=== PATIENT | male | born 1960 | race Caucasian/White ===

== ENCOUNTER → 2023-01-01 07:53 | Outpatient (BNVA) | payer MEDICAID, SELFPAY | PROVIDERS: PCP Internal Medicine; Visit Provider Nurse Practitioner Family | DX: G47.33 Obstructive sleep apnea (adult) (pediatric) (principal); G47.00 Insomnia, unspecified; R40.0 Somnolence | CPT/HCPCS: 99212 ==

== ENCOUNTER → 2023-02-18 15:59 | Outpatient (BNVA) | payer MEDICAID, SELFPAY | PROVIDERS: PCP Internal Medicine; Visit Provider Internal Medicine Endocrinology, Diabetes & Metabolism | DX: E29.1 Testicular hypofunction (principal) | CPT/HCPCS: 99202 ==

== ENCOUNTER → 2023-03-16 20:30 | Outpatient (REF) | payer MEDICAID, SELFPAY | LOC: HO.SL 20:30 | PROVIDERS: PCP Internal Medicine; Visit Provider Nurse Practitioner Family | DX: G47.33 Obstructive sleep apnea (adult) (pediatric) (principal); R40.0 Somnolence; J44.9 Chronic obstructive pulmonary disease, unspecified; I10 Essential (primary) hypertension; E11.51 Type 2 diabetes mellitus with diabetic peripheral angiopathy without gangrene; I70.209 Unspecified atherosclerosis of native arteries of extremities, unspecified extremity; Z86.73 Personal history of transient ischemic attack (TIA), and cerebral infarction without residual deficits | CPT/HCPCS: 95810 ==

== ENCOUNTER 2023-04-08 14:26 | Outpatient (AMB) | payer MEDICAID, SELFPAY ==
[2023-04-08 14:31] VITALS: BP 110/70; PULSE 61; O2SAT 95
--- NOTE | 2023-04-08 14:31 | MHC.OFFVIS ---
Intake Vital Signs 04/08/23 14:31 Height 6 ft BP 110/70 Blood Pressure Location Rt brachial Position Sitting Pulse 61 Pulse Source Pulse Oximeter Pulse Oximetry (%) 95 Oxygen Delivery Method Room Air Intake Visit Reasons: 3 mo f/u for LE -Confirmed Intake Note: Patient presents for 3 month follow up Allergies codeine [CODEINE] Allergy (Unknown, Verified 04/08/23 14:33) RASH naltrexone Allergy (Unknown, Verified 04/08/23 14:33) Unknown pentazocine Allergy (Unknown, Verified 04/08/23 14:33) Nausea semaglutide Adverse Reaction (Unknown, Verified 04/08/23 14:33) Diarrhea From ULTRAM Allergy (Unknown, Uncoded 04/08/23 14:33) UNKNOWN HPI HPI Comments History of Present Illness Details 62 y/o male patient presents for follow up of LE on insomnia. The PSG sleep study result was normal sleep. The AHI was less than 3 and oxygen kellie was 88%. Pt was diagnosed with sleep apnea around 1999 and treated with CPAP for 20 years. Pt states that he lost 95lb three years ago and was told that he does not need to use CPAP at that time. Pt reports difficulty falling asleep and staying sleep. His psychiatrist tapering off his clonazepam due to cognitive impairment. He is off clonazepam now. Pt also takes trazodone 75 mg to treat insomnia, but not really helpful. Pt states that he does not remember he tried melatonin or not. [facility] Medical History (Updated 02/18/23 @ 16:09 by Chele Diaz MD) CKD (chronic kidney disease) stage 2, GFR 60-89 ml/min COPD (chronic obstructive pulmonary disease) GERD (gastroesophageal reflux disease) Heart disease HLD (hyperlipidemia) Hypertension Hypogonadism, testicular Stroke Surgical History (Updated 04/08/23 @ 14:34 by DOT Real) History of hernia surgery Hx of appendectomy Hx of lithotripsy Family History Brother Diabetes Cardiomyopathy Mother Dementia Other No known problems Social History Alcohol intake: former Patient Tobacco Use Status: Never used Tobacco Review of Systems Const All systems reviewed & are unremarkable except as noted in HPI and below ENT Reports Normal hearing present Neuro Reports Normal hearing present Physical Exam Vital Signs: Last Vital Signs Pulse 61 04/08/23 14:31 BP 110/70 04/08/23 14:31 Pulse Ox 95 04/08/23 14:31 Oxygen Delivery Method Room Air 04/08/23 14:31 Const General: cooperative Nutritional Appearance: average body habitus Orientation/consciousness: patient oriented x3 Resp Effort & Inspection: normal respiratory effort and able to speak in complete sentences Neuro General: patient oriented x3 Cranial nerves: Yes Bilaterally intact EOM present, Yes Normal facial strength present, Yes Midline tongue present, Yes Symmetric palate elevation present, Yes Normal hearing present, Yes Ability to bilaterally rotate head present and Yes Ability to bilaterally elevate shoulders present Cognition (Neuro): normal cognition Gait exam (Neuro): Assisted gait required (cane) Motor exam (neuro): 5/5 motor strength present throughout and Pronator motor function not present Psych Appearance: grossly normal Affect: normal affect Attitude: cooperative Assessment & Plan Assessment & Plan (1) LE (obstructive sleep apnea): Code(s): G47.33 - Obstructive sleep apnea (adult) (pediatric) (2) Insomnia: Code(s): G47.00 - Insomnia, unspecified Plan Advised patient to try melatonin 3 mg 1-2 tabs qHS to promote sleep. Sleep hygiene education provided. Encouraged patient to increase physical activity during daytime. Having routine sleep schedule. Continue to take trazodone 75 mg qHS. Medications: New melatonin 1-2 tabs qHS. 60 tabs 3RF sleep 30 days Coding Level of Care Code Est Pt Level 3 (52979) Diagnoses LE (obstructive sleep apnea) G47.33 Insomnia G47.00
== END 2023-04-08 14:51 | disposition home or self-care (01) ==
PROVIDERS: Visit Provider Nurse Practitioner Family
DX: G47.33 Obstructive sleep apnea (adult) (pediatric) (principal); G47.00 Insomnia, unspecified
CPT/HCPCS: 99213

== ENCOUNTER → 2023-04-08 | Outpatient (BNVA) | payer MEDICAID, SELFPAY | PROVIDERS: Visit Provider Nurse Practitioner Family | DX: G47.33 Obstructive sleep apnea (adult) (pediatric) (principal); G47.00 Insomnia, unspecified | CPT/HCPCS: 99213 ==

== ENCOUNTER 2023-05-12 15:41 | Outpatient (REF) | payer MEDICAID, SELFPAY ==
[2023-05-13 07:29] LABS: Follicle Stimulating Hormone 5.3 mIU/mL (1.6-8.0); Lutenizing Hormone 6.8 mIU/mL (1.6-15.2)
[2023-05-16 16:54] LABS: Testosterone, Free 17.7 pg/mL (35.0-155.0); Testosterone, Total 153 ng/dL (250-1100)
== END 2023-05-12 15:42 | disposition home or self-care (01) ==
LOC: HO.LAB 15:41
PROVIDERS: PCP Internal Medicine; Visit Provider Internal Medicine Endocrinology, Diabetes & Metabolism
DX: E29.1 Testicular hypofunction (principal)
CPT/HCPCS: 36415; 83001; 83002; 84402; 84403

== ENCOUNTER 2023-05-26 15:26 | Outpatient (AMB) | payer MEDICAID, SELFPAY ==
--- NOTE | 2023-05-26 15:27 | A.OFFVIS_ITS ---
Intake Vital Signs 05/26/23 15:28 Height 6 ft Weight 188 lb 7.924 oz BMI 25.6 BP 120/74 Blood Pressure Location Lt brachial Position Sitting Pulse 53 Pulse Source Pulse Oximeter Intake Visit Reasons: Hypogonadism Intake Note: Patient present today for Hypogonadism follow up visit. 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 Betancourt who is seen in consultation at the request of his PCP for Hypogonadism. First diagnosed with Hypogonadism 2018 with labs revealing ? secondary hypogonadism.Was on Methadone now off for 3 yrs Was started on Testosterone supplementation with Androgel 3 depressions for many yrs and found relief. Currently on AndroGel 3 depressions per day Currently using Androgel . Took injections at first Can achieving spontaneous am erections, and able to achieve erection when desired with Viagra . Reports no increase in libido libido. Decreased facial hair and shaving frequency. Denies any change in size or shape of testicles. Denies penile discharge or scrotal tenderness. Denies any history of mumps orchitis. Denies any head trauma. history of LE. Does not use CPAP with children 3 children who were conceived spontaneously. Sense of smell intact. Denies headache or visual changes, gynecomastia or galactorrhea. Has orthostatic symptoms, has some weight loss. Denies change in size of hands or feet. Denies hair loss, weight gain, cold intolerance. History of DVT or PE: No Saw urologist - has urinary sx Labs: PSA CBC Laboratory workup is consistent with secondary hypogonadism. Records from Dr. Agudelo were not received.. Sleep study 02/2023 was normal [facility] Medical History (Updated 02/18/23 @ 16:09 by Chele Diaz MD) CKD (chronic kidney disease) stage 2, GFR 60-89 ml/min COPD (chronic obstructive pulmonary disease) GERD (gastroesophageal reflux disease) Heart disease HLD (hyperlipidemia) Hypertension Hypogonadism, testicular Stroke Surgical History History of hernia surgery Hx of appendectomy Hx of lithotripsy Family History Brother Diabetes Cardiomyopathy Mother Dementia Other No known problems Social History Alcohol intake: former Patient Tobacco Use Status: Never used Tobacco Physical Exam Vital Signs: Last Vital Signs Pulse 53 05/26/23 15:28 BP 120/74 05/26/23 15:28 BMI result Body Mass Index 25.6 Assessment & Plan Assessment & Plan (1) Hypogonadism, testicular: Code(s): E29.1 - Testicular hypofunction Plan: This is a 62-year-old white male with a history of secondary hypogonadism previously treated with AndroGel. Plan is to try obtain prior notes from [facility] Dr. Parra regarding prior LH, FSH levels , prolactin as well as a pituitary MRI if that was performed. Will also obtain PSA. Also have patient's primary doctor send to urologist to evaluate prostate symptoms prior to reinitiating testosterone. Orders: Orders Ferritin Today E29.1 - Testicular hypofunction Prolactin 1 Day E29.1 - Testicular hypofunction Prostate Specific Antigen Today E29.1 - Testicular hypofunction Coding Level of Care Code Est Pt Level 3 (11128) Diagnoses Hypogonadism, testicular E29.1
[2023-05-26 15:28] VITALS: BP 120/74; PULSE 53; BMI 25.6
== END 2023-05-26 15:35 ==
PROVIDERS: PCP Internal Medicine; Visit Provider Internal Medicine Endocrinology, Diabetes & Metabolism
DX: E29.1 Testicular hypofunction (principal)
CPT/HCPCS: 99213

== ENCOUNTER → 2023-05-26 15:26 | Outpatient (BNVA) | payer MEDICAID, SELFPAY | PROVIDERS: Visit Provider Internal Medicine Endocrinology, Diabetes & Metabolism | DX: E29.1 Testicular hypofunction (principal) | CPT/HCPCS: 99212 ==

== ENCOUNTER 2023-08-12 14:15 | Outpatient (AMB) | payer MEDICAID, SELFPAY ==
--- NOTE | 2023-08-12 14:20 | MHC.OFFVIS ---
Intake Vital Signs 08/12/23 14:23 Height 6 ft Weight 194 lb 6 oz BMI 26.4 BP 110/58 L Blood Pressure Location Rt brachial Position Sitting Respiration 16 Pulse 55 Pulse Source Pulse Oximeter Pulse Oximetry (%) 98 Oxygen Delivery Method Room Air Intake Visit Reasons: 4m follow up LE Intake Note: Pt presents to the office for a 4 month follow up for LE. Pt states he is no longer using his CPAP because his last sleep study said he doesn't have sleep apnea . He states he is not getting a full nights rest. He wakes up after just a few hours of sleep. He's having trouble falling asleep but is able to remain asleep. He feels his Trazodone isn't working as well as it used to . 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 The PSG sleep study result was normal sleep. The AHI was less than 3 and oxygen kellie was 88%. He can sleep 4-5 hours, still having difficulty time fall asleep, staying sleep. However, his sleep has improved overall with trazodone 150 mg. Practice sleep hygiene, having routine sleep schedule, and hot shower before bedtime, seems it helps. He stopped taking melatonin. He is off clonazepam now. [facility] Medical History (Updated 02/18/23 @ 16:09 by Chele Diaz MD) Hypogonadism, testicular Stroke COPD (chronic obstructive pulmonary disease) Heart disease CKD (chronic kidney disease) stage 2, GFR 60-89 ml/min GERD (gastroesophageal reflux disease) HLD (hyperlipidemia) Hypertension Surgical History Hx of lithotripsy History of hernia surgery Hx of appendectomy Family History Brother Diabetes Cardiomyopathy Mother Dementia Other No known problems Alcohol intake: former Patient Tobacco Use Status: Never used Tobacco Review of Systems Const All systems reviewed & are unremarkable except as noted in HPI and below ENT Reports Normal hearing present Neuro Reports Normal hearing present Physical Exam Vital Signs: Last Vital Signs Pulse 55 08/12/23 14:23 Resp 16 08/12/23 14:23 BP 110/58 L 08/12/23 14:23 Pulse Ox 98 08/12/23 14:23 Oxygen Delivery Method Room Air 08/12/23 14:23 BMI result Body Mass Index 26.4 Const General: cooperative Nutritional Appearance: average body habitus Orientation/consciousness: patient oriented x3 Resp Effort & Inspection: normal respiratory effort and able to speak in complete sentences Neuro General: patient oriented x3 Cranial nerves: Yes Bilaterally intact EOM present, Yes Normal facial strength present, Yes Midline tongue present, Yes Symmetric palate elevation present, Yes Normal hearing present, Yes Ability to bilaterally rotate head present and Yes Ability to bilaterally elevate shoulders present Cognition (Neuro): normal cognition Gait exam (Neuro): Assisted gait required (cane) Motor exam (neuro): 5/5 motor strength present throughout and Pronator motor function not present Psych Appearance: grossly normal Affect: normal affect Attitude: cooperative Assessment & Plan Assessment & Plan (1) Insomnia: Code(s): G47.00 - Insomnia, unspecified Plan Continue to practice sleep hygiene. Encouraged patient to increase physical activity during daytime. Continue to take trazodone 150 mg qHS. Coding Level of Care Code Est Pt Level 3 (44378) Diagnoses Insomnia G47.00
[2023-08-12 14:23] VITALS: BP 110/58; PULSE 55; RESP 16; O2SAT 98; BMI 26.4
== END 2023-08-12 14:43 | disposition home or self-care (01) ==
PROVIDERS: PCP Internal Medicine; Visit Provider Nurse Practitioner Family
DX: G47.00 Insomnia, unspecified (principal)
CPT/HCPCS: 99213

== ENCOUNTER → 2023-08-12 14:15 | Outpatient (BNVA) | payer MEDICAID, SELFPAY | PROVIDERS: PCP Internal Medicine; Visit Provider Nurse Practitioner Family | DX: G47.00 Insomnia, unspecified (principal) | CPT/HCPCS: 99212 ==

== ENCOUNTER 2023-10-02 10:02 | Outpatient (AMB) | payer MEDICAID, SELFPAY ==
--- NOTE | 2023-10-02 10:03 | A.OFFVIS_ITS ---
Intake Intake Visit Reasons: testicular hypofunction Intake Note: NEW Patient presents today to established treatment for Testicular Hypofunction: Meds- Finasteride Allergies to Antibiotic- No Known Allergies Blood Thinner- Aspirin Side Piece Coverer Required: No Accompanied by: Self / Same As Patient Allergies codeine [CODEINE] Allergy (Unknown, Verified 10/30/23 15:17) RASH naltrexone Allergy (Unknown, Verified 10/30/23 15:17) Unknown pentazocine Allergy (Unknown, Verified 10/30/23 15:17) Nausea semaglutide Adverse Reaction (Unknown, Verified 10/30/23 15:17) Diarrhea From ULTRAM Allergy (Unknown, Uncoded 10/30/23 15:17) UNKNOWN Medication List - Last Reconciled 10/02/23 by Marlene Edwards MD alcohol swabs (Alcohol Prep Pads) 0 pad topical TID aspirin 81 mg PO DAILY atorvastatin 40 mg PO DAILY blood sugar diagnostic (FreeStyle Lite Strips) As directed blood-glucose meter (FreeStyle Lite Meter kit) As directed cholecalciferol (vitamin D3) (Vitamin D3) 100 mcg PO DAILY cyanocobalamin (vitamin B-12) 100 mcg PO DAILY empagliflozin (Jardiance) 25 mg PO DAILY finasteride 5 mg PO DAILY gabapentin 600 mg PO TID magnesium oxide 400 mg PO BEDTIME 30 days melatonin 1-2 tabs qHS. 30 days metformin 1,000 mg PO BID multivitamin with folic acid 400 mcg (Daily-Jazzy (with folic acid)) 1 tab PO DAILY sildenafil (Viagra) 100 mg PO DAILY PRN sitagliptin phosphate (Januvia) 100 mg PO DAILY trazodone 75 mg PO BEDTIME HPI HPI Comments History of Present Illness Details Karthik is a 63 year old male who is here for evaluation for low testosterone and he complains of h/o kidney stones and right flank pain for a few weeks Past Medical history - Hypogonadism, testicular, Stroke, COPD (chronic obstructive pulmonary disease), Heart disease, CKD GERD, Hypertension, history of nicotine use . I have reviewed chart, reviewed testosterone levels. The patient states his prior skilled nursing professional had him on Testosterone replacement and he has a pending appointment at the end of the month I will check a PSA. Will check kidneys with renal US. Plan:Renal US Pt has appointment with [facility] for Testosterone replacement at the end of this month Viagra refilled PFSH Medical History Hypogonadism, testicular Stroke COPD (chronic obstructive pulmonary disease) Heart disease CKD (chronic kidney disease) stage 2, GFR 60-89 ml/min GERD (gastroesophageal reflux disease) HLD (hyperlipidemia) Hypertension Surgical History Hx of lithotripsy History of hernia surgery Hx of appendectomy Family History Brother Diabetes Cardiomyopathy Mother Dementia Other No known problems Social History Alcohol intake: former Patient Tobacco Use Status: Never used Tobacco Review of Systems Const All systems reviewed & are unremarkable except as noted in HPI and below Reports no additional complaints Eyes Reports no additional complaints ENT Reports no additional complaints Card Denies dyspnea Resp Denies cough and Denies dyspnea GI Reports no additional complaints Musc Reports no additional complaints Skin/Breast Denies rash and Denies unusual bruising Neuro Reports no additional complaints Psych Reports no additional complaints Endo Reports no additional complaints Randy/Lymph Reports no additional complaints Aller/Immun Reports no additional complaints Physical Exam Const General: healthy appearing, no acute distress and well developed Orientation/consciousness: patient oriented x3 HEENT Head: Yes normocephalic and Yes atraumatic Eyes Conjunctivae: conjunctivae normal Neck Neck: Yes normal visual inspection Chest Chest palpation & inspection: normal inspection of the chest Resp Effort & Inspection: normal respiratory effort Cardio Rate: regular rate GI Inspection: Yes normal to inspection Palpation (GI): Soft to palpation Skin General skin exam: no rashes or lesions noted Neuro General: patient oriented x3 Extrem General: No pedal edema Psych Appearance: grossly normal Affect: normal affect Results AMB Urinalysis, Automated UA Leukoctes 0 Divya/uL Last Edit by DOT Cordoba on 10/02/23 10:40 UA Nitrite Negative Last Edit by Gilberto Waller, A on 10/02/23 10:40 UA Urobilinogen 0.2 mg/dL Last Edit by Gilberto Waller, A on 10/02/23 10:4 0 UA Protein 15 mg/dL Last Edit by Gilberto Waller, A on 10/02/23 10:40 UA pH 5.0 Last Edit by Gilberto Waller, A on 10/02/23 10:40 UA Blood 0 Brian/uL Last Edit by Gilberto Waller, A on 10/02/23 10:40 UA Specific Alligator 1.025 Last Edit by Gilberto Waller, [facility] on 10/02/23 10: 40 UA Ketone Positive Last Edit by Gilberto Waller, A on 10/02/23 10:40 5 mg/dL Gilberto Waller 10/02/23 10:40 UA Bilirubin 0 mg/dL Last Edit by Gilberto Waller, [facility] on 10/02/23 10:40 UA Glucose 1000 mg/dL Last Edit by Gilberto Waller, [facility] on 10/02/23 10:40 3+ Gilberto Waller 10/02/23 10:40 Results Reviewed Results Reviewed: Laboratory Last Values Urine pH (Auto) 5.0 10/02/23 10:36 Specific Alligator (Auto) 1.025 10/02/23 10:36 Urine Protein (Auto) 15 mg/dL 10/02/23 10:36 Glucose (UA)(Auto) 1000 mg/dL 10/02/23 10:36 Urine Ketones (Auto) Positive 10/02/23 10:36 Urine Blood (Auto) 0 Brian/uL 10/02/23 10:36 Urine Nitrite (Auto) Negative 10/02/23 10:36 Urine Bilirubin (Auto) 0 mg/dL 10/02/23 10:36 Urine Urobilinogen (Auto) 0.2 mg/dL 10/02/23 10:36 Leukocyte Esterase (Auto) 0 Divya/uL 10/02/23 10:36 Assessment & Plan Assessment & Plan (1) Erectile dysfunction: Code(s): N52.9 - Male erectile dysfunction, unspecified (2) History of kidney stones: Code(s): Z87.442 - Personal history of urinary calculi (3) Right flank pain: Code(s): R10.9 - Unspecified abdominal pain (4) Hypogonadism, testicular: Code(s): E29.1 - Testicular hypofunction Plan Renal US Pt has appointment with [facility] for Testosterone replacement at the end of this month Viagra refilled Orders: Orders US retroperitoneal comp 10/02/23 R10.9 - Unspecified abdominal pain, Z87.442 - Personal history of urinary calculi AMB Urinalysis Automated 10/02/23 Z13.9 - Encounter for screening, unspecified Medications: New sildenafil (Viagra) administer 30 minutes to 4 hours before activity 100 mg PO DAILY PRN 30 tabs 2RF sexual activity Coding Level of Care Code Est Pt Level 4 (79471) Diagnoses Erectile dysfunction N52.9 History of kidney stones Z87.442 Right flank pain R10.9 Hypogonadism, testicular E29.1
== END 2023-10-02 10:59 | disposition home or self-care (01) ==
PROVIDERS: PCP Internal Medicine; Visit Provider Urology
DX: N52.9 Male erectile dysfunction, unspecified (principal); Z87.442 Personal history of urinary calculi; R10.9 Unspecified abdominal pain; E29.1 Testicular hypofunction
CPT/HCPCS: 99214

== ENCOUNTER → 2023-10-02 10:02 | Outpatient (BNVA) | payer MEDICAID, SELFPAY | PROVIDERS: PCP Internal Medicine; Visit Provider Urology | DX: E29.1 Testicular hypofunction (principal); N52.9 Male erectile dysfunction, unspecified; R10.9 Unspecified abdominal pain; Z87.442 Personal history of urinary calculi | CPT/HCPCS: 81003; 99212 ==

== ENCOUNTER 2023-10-27 12:55 | Outpatient (REF) | payer MEDICAID, SELFPAY ==
--- NOTE | ~2023-10-27 | US_ITS ---
EXAMINATION: US RETROPERITONEAL COMPLETE (RENAL) CLINICAL INFORMATION: Unspecified abdominal pain. COMPARISON: Renal ultrasound 01/15/2021 TECHNIQUE: Real-time imaging of the kidneys and bladder. FINDINGS: RIGHT KIDNEY: 11.2 x 4.6 x 5.2 cm (SAG x AP x TRV). The kidney is normal in size, contour, and echogenicity. Renal cortical thickness is normal. No calculi or focal parenchymal lesions. No hydronephrosis. There is mild pelvic fullness. LEFT KIDNEY: 11.6 x 4.4 x 4.2 cm (SAG x AP x TRV). The kidney is normal in size, contour, and echogenicity. Renal cortical thickness is normal. No calculi. No hydronephrosis. There is a 1.3 x 1.0 x 1.4 cm simple cyst in the mid kidney for which no imaging follow-up is recommended. There is mild pelvic fullness. BLADDER: Well distended and normal. Bilateral ureteral jets are not demonstrated. Prevoid bladder volume is 496 mL. Postvoid bladder volume is 18 mL. US/US retroperitoneal comp IMPRESSION: Small post void residual. No hydronephrosis nor calculi within either kidney.
== END 2023-10-27 12:56 | disposition home or self-care (01) ==
LOC: HO.US 12:55
PROVIDERS: PCP Internal Medicine; Visit Provider Urology
DX: R10.9 Unspecified abdominal pain (principal); Z87.442 Personal history of urinary calculi
CPT/HCPCS: 76770

== ENCOUNTER 2023-10-30 15:11 | Outpatient (AMB) | payer MEDICAID, SELFPAY ==
--- NOTE | 2023-10-30 15:15 | A.OFFVIS_ITS ---
Intake Intake Visit Reasons: 4w/US Intake Note: Patient presents today for a follow-up on Testicular Hypofunction and US Results: Meds- Finasteride & Sildenafil Allergies to Antibiotic- No Known Allergies Blood Thinner- Aspirin Retail Manager In Training Required: No Accompanied by: Self / Same As Patient Allergies codeine [CODEINE] Allergy (Unknown, Verified 10/30/23 15:17) RASH naltrexone Allergy (Unknown, Verified 10/30/23 15:17) Unknown pentazocine Allergy (Unknown, Verified 10/30/23 15:17) Nausea semaglutide Adverse Reaction (Unknown, Verified 10/30/23 15:17) Diarrhea From ULTRAM Allergy (Unknown, Uncoded 10/30/23 15:17) UNKNOWN HPI HPI Comments History of Present Illness Details Karthik is a 63 year old male who is here for follow-up. 10/30/23--patient is here in follow-up he was last evaluated on 10/02/2023- he has complained of right flank pain and had renal ultrasound to re-evaluate kidneys due to history of kidney stones. I have reviewed renal ultrasound results- 10/27/2023 kidneys are within normal limits no calcifications noted. Past Medical history - Hypogonadism, testicular, Stroke, COPD (chronic obstructive pulmonary disease), Heart disease, CKD GERD, Hypertension, history of nicotine use . Review of chart: 10/02/2023- Karthik is a 63 year old male who is here for evaluation for low testosterone and he complains of h/o kidney stones and right flank pain for a few weeks I have reviewed chart, reviewed testosterone levels. The patient states his prior corporate administrator had him on Testosterone replacement and he has a pending appointment at the end of the month I will check a PSA. Will check kidneys with renal US. 10/30/2023--Plan: Viagra p.r.n.. Patient follows with corporate administrator for low testosterone replacement. Continue PSA screening. [facility] Medical History Hypogonadism, testicular Stroke COPD (chronic obstructive pulmonary disease) Heart disease CKD (chronic kidney disease) stage 2, GFR 60-89 ml/min GERD (gastroesophageal reflux disease) HLD (hyperlipidemia) Hypertension Surgical History Hx of lithotripsy History of hernia surgery Hx of appendectomy Family History Brother Diabetes Cardiomyopathy Mother Dementia Other No known problems Social History Alcohol intake: former Patient Tobacco Use Status: Never used Tobacco Review of Systems Const All systems reviewed & are unremarkable except as noted in HPI and below Reports no additional complaints Eyes Reports no additional complaints ENT Reports no additional complaints Card Reports no additional complaints Resp Reports no additional complaints GI Reports no additional complaints Reports as per HPI Musc Reports no additional complaints Skin/Breast Reports system reviewed and no additional complaints, except as documented Neuro Reports no additional complaints Psych Reports no additional complaints Endo Reports no additional complaints Randy/Lymph Reports no additional complaints Aller/Immun Reports no additional complaints Results AMB Urinalysis, Automated UA Leukoctes 0 Divya/uL Last Edit by [employer] [place] on 10/30/23 15:29 UA Nitrite Negative Last Edit by [employer] [place] on 10/30/23 15:29 UA Urobilinogen 0.2 mg/dL Last Edit by [employer] [place] on 10/30/23 15:2 9 UA Protein 15 mg/dL Last Edit by [employer] [place] on 10/30/23 15:29 UA pH 6.0 Last Edit by [employer] [place] on 10/30/23 15:29 UA Blood 200 Brian/uL Last Edit by [employer] [place] on 10/30/23 15:29 3+ Gilberto Waller 10/30/23 15:29 UA Specific [place] 1.025 Last Edit by [employer] [place] on 10/30/23 15: 29 UA Ketone Positive Last Edit by [employer] [place] on 10/30/23 15:29 40 mg/dL Gilberto Waller 10/30/23 15:29 UA Bilirubin 0 mg/dL Last Edit by Gilberto Waller DOT on 10/30/23 15:29 UA Glucose 1000 mg/dL Last Edit by Gilberto Waller DOT on 10/30/23 15:29 3+ Gilberto Waller 10/30/23 15:29 Results Reviewed Results Reviewed: Laboratory Last Values Urine pH (Auto) 6.0 10/30/23 15:22 Specific [place] (Auto) 1.025 10/30/23 15:22 Urine Protein (Auto) 15 mg/dL 10/30/23 15:22 Glucose (UA)(Auto) 1000 mg/dL 10/30/23 15:22 Urine Ketones (Auto) Positive 10/30/23 15:22 Urine Blood (Auto) 200 Brian/uL 10/30/23 15:22 Urine Nitrite (Auto) Negative 10/30/23 15:22 Urine Bilirubin (Auto) 0 mg/dL 10/30/23 15:22 Urine Urobilinogen (Auto) 0.2 mg/dL 10/30/23 15:22 Leukocyte Esterase (Auto) 0 Divya/uL 10/30/23 15:22 Date of Service: 10/27/23 EXAMINATION: US RETROPERITONEAL COMPLETE (RENAL) CLINICAL INFORMATION: Unspecified abdominal pain. COMPARISON: Renal ultrasound 01/15/2021 TECHNIQUE: Real-time imaging of the kidneys and bladder. FINDINGS: RIGHT KIDNEY: 11.2 x 4.6 x 5.2 cm (SAG x AP x TRV). The kidney is normal in size, contour, and echogenicity. Renal cortical thickness is normal. No calculi or focal parenchymal lesions. No hydronephrosis. There is mild pelvic fullness. LEFT KIDNEY: 11.6 x 4.4 x 4.2 cm (SAG x AP x TRV). The kidney is normal in size, contour, and echogenicity. Renal cortical thickness is normal. No calculi. No hydronephrosis. There is a 1.3 x 1.0 x 1.4 cm simple cyst in the mid kidney for which no imaging follow-up is recommended. There is mild pelvic fullness. BLADDER: Well distended and normal. Bilateral ureteral jets are not demonstrated. Prevoid bladder volume is 496 mL. Postvoid bladder volume is 18 mL. IMPRESSION: Small post void residual. No hydronephrosis nor calculi within either kidney. Assessment & Plan Assessment & Plan (1) Screening PSA (prostate specific antigen): Code(s): Z12.5 - Encounter for screening for malignant neoplasm of prostate (2) Erectile dysfunction: Code(s): N52.9 - Male erectile dysfunction, unspecified Plan PSA screening follow-up in 9 months PSA prior. Viagra p.r.n. Patient follows with corporate administrator for low testosterone and testosterone replacement Orders: Orders AMB Urinalysis Automated 10/30/23 Z13.9 - Encounter for screening, unspecified PSA,Total (Free>4and<10) 8 Months Z12.5 - Encounter for screening for malignant neoplasm of prostate Patient Instructions: The patient had an opportunity to ask questions regarding treatment plan. All questions were answered. Imaging, Laboratory studies and physical exam results were discussed and reviewed in detail. No major barriers to understanding were identified. The patient expressed understanding and agreement with the above treatment plan. The patient is aware they should contact our office by phone for worsening of their current condition or the appearance of new symptoms. Compliance is encouraged with any medications and followup testing that is ordered. It is a privilege to be allowed the opportunity to participate in the urologic care of your patient. If you have any questions or concerns regarding treatment for the above conditions please do not hesitate to contact me. The office telephone contact is [phone]. This note is constructed in part using voice recognition software. While every effort has been made to ensure accuracy hot dip plater errors may have been included. Yours sincerely, Marlene Edwards MD Coding Level of Care Code Est Pt Level 3 (55475) Diagnoses Screening PSA (prostate specific antigen) Z12.5 Erectile dysfunction N52.9
== END 2023-10-30 16:13 | disposition home or self-care (01) ==
PROVIDERS: PCP Internal Medicine; Visit Provider Urology
DX: Z12.5 Encounter for screening for malignant neoplasm of prostate (principal); N52.9 Male erectile dysfunction, unspecified
CPT/HCPCS: 99213

== ENCOUNTER → 2023-10-30 15:11 | Outpatient (BNVA) | payer MEDICAID, SELFPAY | PROVIDERS: PCP Internal Medicine; Visit Provider Urology | DX: Z12.5 Encounter for screening for malignant neoplasm of prostate (principal); N52.9 Male erectile dysfunction, unspecified | CPT/HCPCS: 81003; 99212 ==

== ENCOUNTER 2025-02-07 10:56 | Outpatient (AMB) | payer OTHER, SELFPAY ==
--- NOTE | 2025-02-07 11:14 | A.OFFVIS_ITS ---
Vital Signs 02/07/25 11:20 Height 6 ft 1 in Weight 187 lb 8 oz BMI 24.7 BP 120/65 Blood Pressure Location Rt brachial Position Sitting Pulse 59 Pulse Source Pulse Oximeter Pulse Oximetry (%) 97 Oxygen Delivery Method Room Air Intake Visit Reasons: Chronic back pain Intake Note: Pain today 03/30 Event Producer Required: No Accompanied by: Self / Same As Patient Allergies codeine [CODEINE] Allergy (Unknown, Verified 02/07/25 11:22) RASH naltrexone Allergy (Unknown, Verified 02/07/25 11:22) Unknown pentazocine Allergy (Unknown, Verified 02/07/25 11:22) Nausea sulfamethoxazole [From Bactrim] Allergy (Unknown, Verified 02/07/25 11:22) Unknown trimethoprim [From Bactrim] Allergy (Unknown, Verified 02/07/25 11:22) Unknown semaglutide Adverse Reaction (Unknown, Verified 02/07/25 11:22) Diarrhea From ULTRAM Allergy (Unknown, Uncoded 10/30/23 15:17) UNKNOWN HPI Comments Details: The patient is a 64-year-old male presenting with chronic lower back pain, primarily due to L5-S1 disc degeneration. The pain radiates into the right leg with symptoms of sciatica and is accompanied by diabetic neuropathy affecting bilateral feet. He has ongoing pain associated with bursitis and hip arthritis, worsening with activities like bending, walking and lifting. The patient reports sidestepping injection therapies due to concern about hyperglycemia. His pain management has been largely reliant on gabapentin and oxycodone, given his renal constraints preclude NSAID use. Occasionally, he will take meloxicam. He recounted that past physical therapy was ineffective, and administrative barriers including transportation issues limited pursuit of further intervention. He reports riding public bus exacerbates his chronic low back pain. The patient has tried a TENS unit in the past, reports no alcohol or tobacco use, and has ceased using marijuana. Previous MRI imaging hasn't been updated since 2015. - Onset and Timing: Chronic with long-standing duration. - Quality and Character: Pain originates in the lower back, radiates down the right leg posteriorly with sciatica-like symptoms. - Primary Location: Lower back, primarily right-sided. - Radiation: Right buttock and posterior leg to the knee and into lateral calf. - Exacerbating Factors: Bending, lifting, physical activity, prolonged walking or standing. - Relieving Factors: Medications like gabapentin, meloxicam and oxycodone provide some relief. Previously was taking Tylenol and Ibuprofen. - Functional Impact: Interferes with daily activities and mobility, difficulty bending and engaging in physical tasks. - Affect: The patient's chronic pain has an impact on daily life and general well-being. - Analgesia: Currently using gabapentin, meloxicam and oxycodone; goal is to identify alternative pain relief interventions due to limited efficacy. - Adverse Effects: Concern expressed over potential renal implications of NSAIDs. - Activities of Daily Living: Pain limits mobility and participation in physical activities. - Aberrant Drug-Related Behaviors: No reported irregularities in medication usage. Oswestry Low Back Pain Disability Score=27 [facility] Medical History Hypogonadism, testicular Stroke COPD (chronic obstructive pulmonary disease) Heart disease CKD (chronic kidney disease) stage 2, GFR 60-89 ml/min GERD (gastroesophageal reflux disease) HLD (hyperlipidemia) Hypertension Surgical History Hx of lithotripsy History of hernia surgery Hx of appendectomy Family History Brother Diabetes Cardiomyopathy Mother Dementia Other No known problems Social History Alcohol intake: former Patient Tobacco Use Status: Never used Tobacco Review of Systems Const Details: - Musculoskeletal- Pain upon examination of the lower back, predominantly on the right side. - Functional Assessment- Noted difficulty bending at knees and back; uses a rotowalker for mobility. - General Appearance- The patient ambulated with the assistance of a walker. All systems reviewed & are unremarkable except as noted in HPI and below Physical Exam Vital Signs: Last Vital Signs Pulse 59 02/07/25 11:20 BP 120/65 02/07/25 11:20 Pulse Ox 97 02/07/25 11:20 Oxygen Delivery Method Room Air 02/07/25 11:20 BMI result Body Mass Index 24.7 General: Appears afebrile. Alert and oriented. Mood and affect appropriate. Forgetful Follows and participates in conversation appropriately. Respiratory effort is unlabored. No cough. Able to transition from sit to stand unassisted. Uses cane with ambulation. Reports rotowalker use at home for mobility. Ambulates with bilaterally normal heel strike and toe off. General: Yes no CVA tenderness Back/Spine/Pelvis Other: Limited lumbar ROM due to pain. Demonstrates 5/5 left and 4/5 right strength of quadriceps bilaterally as well as flexion/dorsiflexion of bilateral feet against resistance. 2+ pedal pulses bilaterally. Straight leg rise with dorsiflexion positive on the right. +1 patellar and diminished achilles reflexes bilaterally. Facet loading test positive bilaterally. Josselyn sign, Juanjo?s, Pelvic compression and Stinchfield tests are positive bilaterally, right>left. Mild groin pain with I/E hip rotations bilaterally. Mild TTP to bilateral GTB. Valsalva maneuver negative. Back: no CVA tenderness Cervical Spine: cervical ROM normal, cervical muscular tenderness and No Cervical spine tenderness Thoracic/Lumbar Spine: thoracic and lumbar spine normal to inspection, No Thoracic/lumbar spine scar(s), Lasegue's sign positive on the right and localized, pain with thoraco-lumbar ROM, paraspinal muscle tenderness, thoraco- lumbar ROM limited, No thoracic spinal tenderness and lumbar spinal tenderness (L4-S1) Pelvis: buttock tenderness on the right Sacroiliac joints: bilaterally (right>left) tender to palpation Extrem Other: There is a decreased sensation over the soles of the feet and toes. Reports numbness, burning, tingling in both feet, worse at night time. No breaks in the skin. No soft tissue swelling or warmth. +2 pedal pulses bilaterally. General: Yes capillary refill normal, Yes no clubbing, cyanosis or edema and Yes no calf tenderness Assessment & Plan Assessment & Plan (1) Lumbar degenerative disc disease: Code(s): M51.369 - Other intervertebral disc degeneration, lumbar region without mention of lumbar back pain or lower extremity pain Category: Medical (2) Chronic low back pain: Code(s): M54.50 - Low back pain, unspecified; G89.29 - Other chronic pain Category: Medical (3) Chronic painful diabetic neuropathy: Code(s): E11.40 - Type 2 diabetes mellitus with diabetic neuropathy, unspecified Category: Medical (4) Lumbosacral spondylosis: Code(s): M47.817 - Spondylosis without myelopathy or radiculopathy, lumbosacral region Category: Medical (5) Bilateral hip pain: Code(s): M25.551 - Pain in right hip; M25.552 - Pain in left hip Category: Medical (6) Right lumbosacral radiculopathy: Code(s): M54.17 - Radiculopathy, lumbosacral region Category: Medical Plan I will focus on obtaining updated imaging studies, including an MRI and x-ray of the lumbosacral spine and hips, to assess the extent of the L5-S1 disc degeneration and degree of arthritis to tailor interventional strategies accordingly. Options include considering radiofrequency ablation or spinal cord stimulation should significant degenerative changes be evident. Pain management will be refined based on imaging outcomes to potentially encompass neuroablation techniques as appropriate. Concerns regarding corticosteroid injections' impact on glucose levels necessitate scrutiny; preference will be given to alternative interventional options. Despite insurance constraints, attempts to facilitate physical therapy coverage will continue with emphasized priority on managing the progression of pain while avoiding exacerbation, considering current renal limitations and diabetes status. Will try to arrange topical 8% capsaicin application for bilateral foot pain once we have confirmed availability. All questions and concerns have been answered and patient agreed with the plan. Follow up for MRI/xray results and sooner as needed. Patient was informed and verbally consented to the use of an ambient scribe for clinic note documentation during this visit. Orders: Orders XR lumbar spine 4V min Today G89.29 - Other chronic pain, M47.817 - Spondylosis without myelopathy or radiculopathy, lumbosacral region, M51.369 - Other intervertebral disc degeneration, lumbar region without mention of lumbar back pain or lower extremity pain, M54.17 - Radiculopathy, lumbosacral region, M54.50 - Low back pain, unspecified MR lumbar spine wo con Today M47.817 - Spondylosis without myelopathy or radiculopathy, lumbosacral region, M51.369 - Other intervertebral disc degeneration, lumbar region without mention of lumbar back pain or lower extremity pain, M54.17 - Radiculopathy, lumbosacral region XR hip BI w [id number] Today M25.551 - Pain in right hip, M25.552 - Pain in left hip Coding Level of Care Code New Pt Level 4 (46757) Diagnoses Lumbar degenerative disc disease M51.369 Chronic low back pain M54.50; G89.29 Chronic painful diabetic neuropathy E11.40 Lumbosacral spondylosis M47.817 Bilateral hip pain M25.551; M25.552 Right lumbosacral radiculopathy M54.17
[2025-02-07 11:20] VITALS: BP 120/65; PULSE 59; O2SAT 97; BMI 24.7
--- OUTSIDE RECORDS SUMMARY | 2025-02-07 12:12 | XMS_ITS | Data Portability ---
Author Organization [facility], Main Office Address [address] [place] [address] Care Team Providers Care Lead Programmer Name Role Phone LIUDMILA CHRIST Primary Care Provider [phone] YAMINI EASLEY OTHER [facility] OTHER LYNNE LUEVANO OTHER [phone] ANGELICA SALAS OTHER ELISE RUVALCABA OTHER OLYA HOBBS OTHER JI MATHIS OTHER ANGELICA SALAS Urologist Assessment No assessment recorded. Plan of Treatment Reminders Order Date Submit Date Provider Last Modified By Organization Details Last Modified Time Details Appointments None recorde d. Lab CMP, serum or plasma 2017 018 [facility], [address], [place], [address], 8 19:51:24 LDL, serum 2017 018 [facility], [address], [place] [address], [address], 8 19:51:25 microal bumin, urine 2017 018 [facility], [address], [place] [address], [address], 8 23:52:25 HbA1c (hemogl obin A1c), blood 2017 018 [facility], [address], [address], [place], [address], 8 23:43:05 TSH, serum or plasma 2017 018 [facility], [address], [address], [place], [address], 8 20:01:32 CBC w/ auto diff 2017 018 [facility], [address], [address], [place], [address], 8 18:38:01 hepatit is A Ab, total, serum 2016 017 [facility], [address], [address], [place], [address], 7 10:55:30 hepatit is C virus RNA, quant, PCR, serum or plasma 2016 017 [facility], [address], [address], [place], [address], 7 08:24:37 hepatit is C virus Ab, serum 2016 017 [facility], [address], [address], [place], [address], 7 10:55:27 hepatit is B surface Ab, qualita tive, serum 2016 017 [facility], [address], [address], [place], [address], 7 10:56:56 microal bumin, urine 2016 017 [facility], [address], [address], [place], [address], 7 02:43:52 hemoglo bin A1C, fingers tick 2016 [place] In-Office Order, Internal Use Only DO Not Attach Compendium DO Not Attach Compendium, Do Not Delete/merge, [id number] 7 10:28:56 Referral nutriti onist/d ietitia n referra l 2016 017 [email or web address] Not available 7 14:51:22 dermato logist referra l 2016 017 [email or web address] Not available 7 11:11:09 Procedures None recorde d. Surgeries None recorde d. Imaging None recorde d. Medication Orders simvast atin 10 mg tablet 2017 018 [id number], [address], [place], [id number], 8 13:41:31 lisinop ril 10 mg tablet 2017 018 [facility], [address], [place], [id number], 8 13:41:50 glipizi de ER 5 mg 24 hr tablet, extende d release 2016 017 [facility]37654, [address], [place], [id number], 7 14:04:24 permeth rin 5 % topical cream 2016 017 [facility] #58186, [address], [place], [id number], 7 14:22:47 Patient Targets Encounter Date Encounter Id Patient Goals Patient Target Last Modified By Organization Details Last Modified Time 01/09/2017 [id number] Microalbumin/Cr eatinine Ratio yearly Not available Not available Not available Blood Pressure 130 / 80 Not available Not available Not available Ongoing of Hemoglobin A1C 2 times per yr Not available Not available Not available Ongoing of Hemoglobin A1C <7 Not available Not available Not available Ongoing of LDL Direct <100 Not available Not available Not available Cholesterol, LDL <100 Not available Not available Not available Pt advised and agrees to do moderate exercise (such as walking) for approximately 150 minutes per week; to decrease carbohydrate intake (25 % of total carbohydrates or less); and to monitor blood glucose as directed Will bring meter and/or readings to appointments. Patient preferences and goals incorporated in plan and updated/modifie d as needed to reflect progress toward goal. awychowski Not available 01/09/2017 10:26:08 07/15/2017 [id number] Microalbumin/Cr eatinine Ratio yearly Not available Not available Not available Blood Pressure 130 / 80 Not available Not available Not available Hemoglobin A1C 2 times per yr Not available Not available Not available Hemoglobin A1C <7 Not available Not available Not available LDL Direct <100 Not available Not available Not available Cholesterol, LDL <100 Not available Not available Not available Pt advised and agrees to do moderate exercise (such as walking) for approximately 150 minutes per week; to decrease carbohydrate intake (25 % of total carbohydrates or less); and to monitor blood glucose as directed Will bring meter and/or readings to appointments. Patient preferences and goals incorporated in plan and updated/modifie d as needed to reflect progress toward goal. [email or web address] Not available 07/15/2017 14:41:16 11/27/2017 [id number] Microalbumin/Cr eatinine Ratio yearly Not available Not available Not available Blood Pressure 130 / 80 Not available Not available Not available Hemoglobin A1C 2 times per yr Not available Not available Not available Hemoglobin A1C <7 Not available Not available Not available LDL Direct <100 Not available Not available Not available Cholesterol, LDL <100 Not available Not available Not available Pt advised and agrees to do moderate exercise (such as walking) for approximately 150 minutes per week; to decrease carbohydrate intake (25 % of total carbohydrates or less); and to monitor blood glucose as directed Will bring meter and/or readings to appointments. Patient preferences and goals incorporated in plan and updated/modifie d as needed to reflect progress toward goal. [email or web address] Not available 11/27/2017 13:40:19 Patient Instructions Encounter Date Encounter Id Patient Instructions Last Modified By Organization Details Last Modified Time 12/12/2016 [id number] I have reviewed the note and agree with the assessment and plan of care. [email or web address] Not available 12/14/2016 21:50:13 01/09/2017 [id number] anxiety disorder: care instructions Not available 01/09/2017 11:06:50 high blood pressure: care instructions Not available 01/09/2017 11:06:50 learning about high blood pressure Not available 01/09/2017 11:06:50 Medications (OTC, herbal therapies, supplements) reviewed and reconciled with patient and or caregiver, including potential side effects, drug interactions, instructions, and the consequences of not taking medication. Reviewed potential barriers to medication adherence, such as side effects from medication or cost of medication. awychowski Not available 01/09/2017 10:26:34 07/15/2017 [id number] high cholesterol: care instructions [email or web address] Not available 07/15/2017 14:50:40 When You Want to Lose Weight: Care Instructions [email or web address] Not available 07/15/2017 14:50:40 Nutrition Referral and Weight Management Follow-up Information [email or web address] Not available 07/15/2017 14:51:12 Medications (OTC, herbal therapies, supplements) reviewed and reconciled with patient and or caregiver, including potential side effects, drug interactions, instructions, and the consequences of not taking medication. Reviewed potential barriers to medication adherence, such as side effects from medication or cost of medication. awychowski Not available 07/15/2017 14:41:24 10/12/2017 [id number] upper respiratory infection (cold): care instructions [email or web address] Not available 10/14/2017 06:24:12 eustachian tube problems: care instructions awychowski Not available 10/14/2017 06:24:12 saline nasal washes: care instructions awychowski Not available 10/14/2017 06:24:12 11/27/2017 [id number] high cholesterol: care instructions awychowski Not available 11/27/2017 13:08:13 type 2 diabetes: care instructions awychowski Not available 11/27/2017 13:41:26 high blood pressure: care instructions awychowski Not available 11/27/2017 13:08:13 learning about high blood pressure awychowski Not available 11/27/2017 13:08:13 Medications (OTC, herbal therapies, supplements) reviewed and reconciled with patient and or caregiver, including potential side effects, drug interactions, instructions, and the consequences of not taking medication. Reviewed potential barriers to medication adherence, such as side effects from medication or cost of medication. dao Not available 11/27/2017 13:40:31 Reason for Referral Manager Clinical Applications Referral for E ruption Referring Physician: Margie Dinh, Internal Medicine, Encounter Date: 12/12/2016 Automation Machine Builder/dietitian Refer ral for Body mass index 25-29 - overweight Referring Physician: Christ Maldonado, Family Medicine, Encounter Date: 07/15/2017 Results Created Date Observation Date Name Description Value Unit Range Abnormal Flag Note LastModifiedBy Organization Detail LastModifiedTime 01/10/2001/09/2017 hemog lobin A1C, finge rstic k HA1C 8.6 % 4-6 Not Available In-Office Order Internal Use Only DO Not Attach Compendium DO Not Attach Compendium, Do Not Delete/merge, [id number] 01/09/2017 10:05:44 01/10/2001/10/2017 micro album in, urine micro-albumi n 23.7 mg/L (0-20) high Not Available [facility] (Centralized Electronic Ordering - All Locations) Patient Can Go To The Location Of Their Choice, 01/10/2017 02:43:52 01/10/2001/10/2017 micro album in, urine malb/creat ratio 13.0 mg/gm (0-20) Not Available [facility] (Centralized Electronic Ordering - All Locations) Patient Can Go To The Location Of Their Choice, 01/10/2017 02:43:52 01/10/2001/10/2017 micro album in, urine urine creat for micro albumin 182.3 mg/dL Not Available [facility] (Centralized Electronic Ordering - All Locations) Patient Can Go To The Location Of Their Choice, 01/10/2017 02:43:52 06/18/2006/18/2017 CMP, serum or plasm a glucose 157 mg/dL (70-99 ) high Not Available [facility] (Centralized Electronic Ordering - All Locations) Patient Can Go To The Location Of Their Choice, 06/18/2017 20:17:06/18/2006/18/2017 CMP, serum or plasm a BUN 14 mg/dL (6-20) Not Available [facility] (Centralized Electronic Ordering - All Locations) Patient Can Go To The Location Of Their Choice, 06/18/2017 20:17:06/18/2006/18/2017 CMP, serum or plasm a creatinine 0.9 mg/dL (0.7-1 .2) Not Available [facility] (Centralized Electronic Ordering - All Locations) Patient Can Go To The Location Of Their Choice, 06/18/2017 20:17:06/18/2006/18/2017 CMP, serum or plasm a sodium 137 mmol/ L (133-1 45) Not Available [facility] (Centralized Electronic Ordering - All Locations) Patient Can Go To The Location Of Their Choice, 06/18/2017 20:17:06/18/2006/18/2017 CMP, serum or plasm a potassium 4.6 mmol/ L (3.6-5 .2) Not Available [facility] (Centralized Electronic Ordering - All Locations) Patient Can Go To The Location Of Their Choice, 06/18/2017 20:17:06/18/2006/18/2017 CMP, serum or plasm a chloride 97 mmol/ L (98-10 7) low Not Available [facility] (Centralized Electronic Ordering - All Locations) Patient Can Go To The Location Of Their Choice, 06/18/2017 20:17:06/18/2006/18/2017 CMP, serum or plasm a bicarbonate 25 mmol/ L (22-29 ) Not Available [facility] (Centralized Electronic Ordering - All Locations) Patient Can Go To The Location Of Their Choice, 06/18/2017 20:17:06/18/2006/18/2017 CMP, serum or plasm a anion gap 15 (4-17) Not Available [facility] (Centralized Electronic Ordering - All Locations) Patient Can Go To The Location Of Their Choice, 06/18/2017 20:17:06/18/2006/18/2017 CMP, serum or plasm a albumin 4.8 gm/dL (3.4-4 .8) Not Available [facility] (Centralized Electronic Ordering - All Locations) Patient Can Go To The Location Of Their Choice, 06/18/2017 20:17:06/18/2006/18/2017 CMP, serum or plasm a calcium 9.5 mg/dL (8.6-1 0.5) Not Available [facility] (Centralized Electronic Ordering - All Locations) Patient Can Go To The Location Of Their Choice, 06/18/2017 20:17:06/18/2006/18/2017 CMP, serum or plasm a bilirubin,to jovany 0.5 mg/dL (0-1.2 ) Not Available [facility] (Centralized Electronic Ordering - All Locations) Patient Can Go To The Location Of Their Choice, 06/18/2017 20:17:06/18/2006/18/2017 CMP, serum or plasm a total protein 7.6 gm/dL (6.2-8 .2) Not Available [facility] (Centralized Electronic Ordering - All Locations) Patient Can Go To The Location Of Their Choice, 06/18/2017 20:17:06/18/2006/18/2017 CMP, serum or plasm a Ag ratio 1.7 Not Available [facility] (Centralized Electronic Ordering - All Locations) Patient Can Go To The Location Of Their Choice, 06/18/2017 20:17:06/18/2006/18/2017 CMP, serum or plasm a AST 19 U/L (0-38) Not Available [facility] (Centralized Electronic Ordering - All Locations) Patient Can Go To The Location Of Their Choice, 06/18/2017 20:17:06/18/2006/18/2017 CMP, serum or plasm a alk phos 53 U/L (40-12 9) Not Available [facility] (Centralized Electronic Ordering - All Locations) Patient Can Go To The Location Of Their Choice, 06/18/2017 20:17:06/18/2006/18/2017 CMP, serum or plasm a ALT 16 U/L (0-41) Not Available [facility] (Centralized Electronic Ordering - All Locations) Patient Can Go To The Location Of Their Choice, 06/18/2017 20:17:06/18/2006/18/2017 CMP, serum or plasm a est GFR non 94 mL/mi n/1.7 3_M2 The CKD-E PI creat inine equat ion has not been valid ated in child rossi (<18 years ), pregn ant women , in some racia l or ethni c subgr oups other than Cauca sians and Afric an Ameri cans. Not Available [facility] (Centralized Electronic Ordering - All Locations) Patient Can Go To The Location Of Their Choice, [id number] 06/18/2017 20:17:29 06/18/20 17 06/18/2017 CMP, serum or plasm a est GFR 109 mL/mi n/1.7 3_M2 The CKD-E PI creat inine equat ion has not been valid ated in child rossi (<18 years ), pregn ant women , in some racia l or ethni c subgr oups other than Cauca sians and Afric an Ameri cans. Not Available [facility] (Centralized Electronic Ordering - All Locations) Patient Can Go To The Location Of Their Choice, [id number] 06/18/2017 20:17:29 06/18/20 17 06/19/2017 vitam in D, 25-hy droxy , total , serum 25OH vitamin D 32.6 NG/mL (20-50 ) SERUM 25OHD : 20 TO 50 NG/ML : SUFFI CIENT IN VITAM IN D. Refer ence: [facility] Data Brief : No.59 November: Vitam in D Statu s: Unite d State s: 2000- 2005 Not Available [facility] (Centralized Electronic Ordering - All Locations) Patient Can Go To The Location Of Their Choice, [id number] 06/19/2017 06:05:58 07/15/2007/16/2017 hepat itis C virus Ab, serum anti-hepatit is C REACT MALISSA BY SCREE CHADWICK EIA. FOR ALL REACT MALISSA ANTI HCV SCREE CHADWICK RESUL TS, BRL RECOM MENDS COLLE CTING A NEW SPECI MEN AND ORDER ING THE HEPAT ITIS C VIRUS (HCV) RNA QUANT IFICA TION TEST FOR CONFI RMATI ON. Resul t repor fidel to [facility]. REFER ENCE RANGE : NEGAT MALISSA Not Available [facility] (Centralized Electronic Ordering - All Locations) Patient Can Go To The Location Of Their Choice, 07/16/2017 10:55:27 07/15/20 17 07/16/2017 hepat itis A Ab, total , serum anti-HAV total Ab REACT MALISSA INDIC ATES EXPOS URE OR IMMUN ITY. THIS ASSAY CANNO T BE USED TO DETER MINE IF A REACT MALISSA SAMPL E IS DUE TO AN ACUTE INFEC TION OR IS THE RESUL T OF A PREVI OUS INFEC TION. PLEAS E CONSI PAUL THE HAV IGM ASSAY TO DETER MINE IF THERE IS AN ONGOI NG OR RECEN T INFEC TION. Not Available [facility] (Centralized Electronic Ordering - All Locations) Patient Can Go To The Location Of Their Choice, [id number] 07/16/2017 10:55:30 07/15/2007/16/2017 hepat itis B surfa ce Ab, quali tativ e, serum anti-hbs POSIT MALISSA INDIC ATES PRIOR EXPOS URE OR IMMUN ITY. Not Available [facility] (Centralized Electronic Ordering - All Locations) Patient Can Go To The Location Of Their Choice, [id number] 07/16/2017 10:56:56 07/15/20 17 07/17/2017 hepat itis C virus RNA, quant , PCR, serum or plasm a HCV quant IU/mL Not detec fidel HCV RNA WAS NOT DETEC FIDEL IN THE SPECI MEN. Resul t repor fidel to [place] [facility]. Testi ng perfo rmed by real time PCR utili zing Miguel Ampli prep/ Miguel TAQMA N HCV test versi on 2.0. To preve nt error s in diagn osis, test resul ts shoul d be inter prete d in the keena xt of clini cial findi ngs and other labor atory data. Rare polym orphi sms exist that could lead to false -nega tive or false -posi tive resul ts. If resul ts obtai trinity do not match the clini ender findi ngs, addit ional testi ng shoul d be consi dered . Not Available [facility] (Centralized Electronic Ordering - All Locations) Patient Can Go To The Location Of Their Choice, [id number] 07/17/2017 08:24:37 07/15/20 17 07/17/2017 hepat itis C virus RNA, quant , PCR, serum or plasm a hcvqnt log result LOG value not calcul ated logiu /mL Not Available [facility] (Centralized Electronic Ordering - All Locations) Patient Can Go To The Location Of Their Choice, [id number] 07/17/2017 08:24:37 11/28/1911/27/2017 CMP, serum or plasm a glucose 179 mg/dL (70-99 ) high Not Available [facility] (Centralized Electronic Ordering - All Locations) Patient Can Go To The Location Of Their Choice, 11/27/2017 19:51:24 11/28/1911/27/2017 CMP, serum or plasm a BUN 15 mg/dL (6-20) Not Available [facility] (Centralized Electronic Ordering - All Locations) Patient Can Go To The Location Of Their Choice, 11/27/2017 19:51:24 11/28/1911/27/2017 CMP, serum or plasm a creatinine 0.8 mg/dL (0.7-1 .2) Not Available [facility] (Centralized Electronic Ordering - All Locations) Patient Can Go To The Location Of Their Choice, 11/27/2017 19:51:24 11/28/1911/27/2017 CMP, serum or plasm a sodium 138 mmol/ L (133-1 45) Not Available [facility] (Centralized Electronic Ordering - All Locations) Patient Can Go To The Location Of Their Choice, 11/27/2017 19:51:24 11/28/1911/27/2017 CMP, serum or plasm a potassium 4.4 mmol/ L (3.6-5 .2) SPECI MEN SLIGH TLY HEMOL YZED, RESUL TS MAY BE FALSE LY HIGH Not Available [facility] (Centralized Electronic Ordering - All Locations) Patient Can Go To The Location Of Their Choice, 11/27/2017 19:51:24 11/28/1911/27/2017 CMP, serum or plasm a chloride 97 mmol/ L (98-10 7) low Not Available [facility] (Centralized Electronic Ordering - All Locations) Patient Can Go To The Location Of Their Choice, 11/27/2017 19:51:24 11/28/1911/27/2017 CMP, serum or plasm a bicarbonate 25 mmol/ L (22-29 ) Not Available [facility] (Centralized Electronic Ordering - All Locations) Patient Can Go To The Location Of Their Choice, 11/27/2017 19:51:24 11/28/1911/27/2017 CMP, serum or plasm a anion gap 16 (4-17) Not Available [facility] (Centralized Electronic Ordering - All Locations) Patient Can Go To The Location Of Their Choice, 11/27/2017 19:51:24 11/28/1911/27/2017 CMP, serum or plasm a albumin 4.6 gm/dL (3.4-4 .8) Not Available [facility] (Centralized Electronic Ordering - All Locations) Patient Can Go To The Location Of Their Choice, 11/27/2017 19:51:24 11/28/1911/27/2017 CMP, serum or plasm a calcium 9.5 mg/dL (8.6-1 0.5) Not Available [facility] (Centralized Electronic Ordering - All Locations) Patient Can Go To The Location Of Their Choice, 11/27/2017 19:51:24 11/28/1911/27/2017 CMP, serum or plasm a bilirubin,to jovany 0.4 mg/dL (0-1.2 ) Not Available [facility] (Centralized Electronic Ordering - All Locations) Patient Can Go To The Location Of Their Choice, 11/27/2017 19:51:24 11/28/1911/27/2017 CMP, serum or plasm a total protein 7.8 gm/dL (6.2-8 .2) Not Available [facility] (Centralized Electronic Ordering - All Locations) Patient Can Go To The Location Of Their Choice, 11/27/2017 19:51:24 11/28/1911/27/2017 CMP, serum or plasm a Ag ratio 1.4 Not Available [facility] (Centralized Electronic Ordering - All Locations) Patient Can Go To The Location Of Their Choice, 11/27/2017 19:51:24 11/28/1911/27/2017 CMP, serum or plasm a AST 36 U/L (0-38) SPECI MEN SLIGH TLY HEMOL YZED, RESUL TS MAY BE FALSE LY HIGH Not Available [facility] (Centralized Electronic Ordering - All Locations) Patient Can Go To The Location Of Their Choice, 11/27/2017 19:51:24 11/28/1911/27/2017 CMP, serum or plasm a alk phos 50 U/L (40-12 9) Not Available [facility] (Centralized Electronic Ordering - All Locations) Patient Can Go To The Location Of Their Choice, 11/27/2017 19:51:24 11/28/1911/27/2017 CMP, serum or plasm a ALT 35 U/L (0-41) Not Available [facility] (Centralized Electronic Ordering - All Locations) Patient Can Go To The Location Of Their Choice, 11/27/2017 19:51:24 11/28/1911/27/2017 CMP, serum or plasm a est GFR non 98 mL/mi n/1.7 3_M2 Creat inine based estim ated glome rular filtr ation rate (eGFR ) is calcu lated using the Chron ic Kidne y Disea se Epide miolo gy Colla borat ion (CKD- EPI). The CKD-E PI creat inine equat ion has not been valid ated in child rossi (<18 years ), pregn ant women or in some racia l or ethni c subgr oups other than Cauca sians and Afric an Ameri cans. Not Available [facility] (Centralized Electronic Ordering - All Locations) Patient Can Go To The Location Of Their Choice, 11/27/2017 19:51:24 11/28/1911/27/2017 CMP, serum or plasm a est GFR 114 mL/mi n/1.7 3_M2 Creat inine based estim ated glome rular filtr ation rate (eGFR ) is calcu lated using the Chron ic Kidne y Disea se Epide miolo gy Colla borat ion (CKD- EPI). The CKD-E PI creat inine equat ion has not been valid ated in child rossi (<18 years ), pregn ant women or in some racia l or ethni c subgr oups other than Cauca sians and Afric an Ameri cans. Not Available [facility] (Centralized Electronic Ordering - All Locations) Patient Can Go To The Location Of Their Choice, 11/27/2017 19:51:24 11/28/1911/27/2017 LDL, serum LDL cholesterol, direct 120.6 mg/dL (<130) Not Available [facility] (Centralized Electronic Ordering - All Locations) Patient Can Go To The Location Of Their Choice, 11/27/2017 19:51:25 11/28/1911/27/2017 TSH, serum or plasm a TSH 6.33 mIU/m L (0.40- 4.00) high Not Available [facility] (Centralized Electronic Ordering - All Locations) Patient Can Go To The Location Of Their Choice, [id number] 11/27/2017 20:01:32 11/28/19 18 11/27/2017 vitam in D, 25-hy droxy , total , serum 25OH vitamin D 41.6 NG/mL (20-50 ) Serum 25OHD : 20 to 50 ng/mL : suffi cient in vitam in D. Refer ence: [facility] Data Brief : No.59 November: Vitam in D Statu s: Unite d State s: 2000- 2005 As of , Vitam in D, 25-Hy droxy assay has been hamilton ed. In some [facility], the new assay may yield a highe r value (up to 15% incre ase) in lavinia rison to the old assay . These incre ases would mainl y be notic eable at value s of great er than 50 ng/ml . Not Available [facility] (Centralized Electronic Ordering - All Locations) Patient Can Go To The Location Of Their Choice, [id number] 11/27/2017 20:47:57 11/28/1911/27/2017 T4, free, serum free T4 1.11 NG/dL (0.70- 1.80) Not Available [facility] (Centralized Electronic Ordering - All Locations) Patient Can Go To The Location Of Their Choice, [id number] 11/27/2017 21:06:46 11/28/1911/27/2017 HbA1c (hemo globi n A1c), blood hemoglobin A1C 8.7 % (4-6) high HEMOG LOBIN A1C(% ) GLUCO SE CONTR OL INDEX <6% EXCEL LENT 6-7% VERY GOOD 7-8% GOOD 8-10% FAIR >10% POOR Hemog lobin (Hb) A1c testi ng is perfo rmed by Jenni Leighann- quant immun oassa y. Any cause of short ened eryth rocyt e survi keisha will reduc e expos ure of eryth rocyt es to gluco se with a conse quent decre ase in Hb A1c (%). Not Available [facility] (Centralized Electronic Ordering - All Locations) Patient Can Go To The Location Of Their Choice, [id number] 11/27/2017 23:43:05 11/28/19 18 11/27/2017 micro album in, urine micro-albumi n 25.0 mg/L (0-20) high Not Available [facility] (Centralized Electronic Ordering - All Locations) Patient Can Go To The Location Of Their Choice, [id number] 11/27/2017 23:52:25 11/28/19 18 11/27/2017 micro album in, urine malb/creat ratio 11.0 mg/gm (0-20) Not Available [facility] (Centralized Electronic Ordering - All Locations) Patient Can Go To The Location Of Their Choice, [id number] 11/27/2017 23:52:25 11/28/1911/27/2017 micro album in, urine urine creat for micro albumin 228.3 mg/dL Not Available [facility] (Centralized Electronic Ordering - All Locations) Patient Can Go To The Location Of Their Choice, [id number] 11/27/2017 23:52:25 Result Notes None recorded. Problems Name Problem SNOMED Code Status Onset Date Resolution Date Notes Provider Name and Address Organization Details Recorded Time Anemia [id number] Completed 201205/01/2014 RECORDED 07/26/20 13 2:55PM BY BELL STAHL MA, ANNOTATI ON/SRIRAM Maldonado MD [address] [facility] [address], [place], [address], [facility] 8 13:49:00 Patient status finding [id number] Completed 201205/01/2014 RECORDED 03/07/20 13 11:22AM BY BELL STAHL MA, ANNOTATI ON/SRIRAM Maldonado MD [address] [facility] [address], [place], [address], [facility] 6 13:41:12 Urinary tract obstruct ion [id number] Completed 201305/01/2014 RECORDED 10/12/19 14 11:27AM BY BELL STAHL MA, ANNOTATI ON/ADDEN DUM Christ Maldonado MD [address] [facility] [address], [place], [address], [facility] 7 14:32:48 Pain of hip region 33315425 Completed 201205/01/2014 RECORDED 03/07/20 13 11:22AM BY BELL STAHL MA, ANNOTATI ON/ADD DUM Christ Maldonado MD [address] [facility] [address], [place], [address], [facility] 6 13:41:12 Breathin g painful [id number] Completed 201205/01/2014 IMPRESSI ON: SLOWLY IMPROVIN G, PT ON METHADON E. OTC NSAIDS ADVISED. ; RECORDED 03/07/20 13 11:22AM BY BELL STAHL MA, ANNOTATI ON/ADD DUM Christ Maldonado MD [address] [facility] [address], [place], [address], [facility] 6 13:41:12 Follow-u p encounte r Completed 201305/01/2014 RECORDED 02/03/20 14 12:45PM BY LEN GREEN MA, ANNOTATI ON/ Christ Maldonado MD [address] [facility] [address], [place], [address], [facility] 6 13:41:12 Influenz a vaccine needed [id number] 06 Completed 201205/01/2014 RECORDED 06/13/20 13 10:54AM BY BELL STAHL MA, OFFICE VISIT Christ Maldonado MD [address] [facility] [address], [place], [address], [facility] 6 13:41:12 Superfic ial foreign body in finger Completed 201311/07/2014 IMPRESSI ON: EXAM CONCERNI NG FOR POSSIBLE RETAINED FB. GIVEN LOCATION WILL REFER TO ORTHO/CANALES ND FOR FURTHER EVAL.; RECORDED 03/08/20 14 5:07PM BY CHRIST Archer MD, OFFICE VISIT Christ Maldonado MD [address] [address], [place], [address], [facility] 6 13:41:12 Adult health examinat ion Completed 201305/01/2014 IMPRESSI ON: WILL UPDATE IMMUNIZA TION STATUS AND SCREEN BASED ON RISK FACTORS. REGULAR DENTAL CARE AND SEATBELT USE ADVISED. DISTRACT ED DRIVING BRADEN Kaufman. COLON CANCER SCREENIN G DUE 2014. PROSTATE CANCER SCREENIN G DONE VIA UROLOGY. ; RECORDED 10/12/19 14 11:27AM BY BELL STAHL MA, ANNOTATI ON/ADDEN DUM Christ Maldonado MD [address] [address], [facility] [place], [address], [facility] 6 13:41:12 Disease of liver [id number] Completed 201205/01/2014 RECORDED 07/26/20 13 2:55PM BY BELL STAHL MA, COYATI ON/ADDEN DUM Christ Maldonado MD [address] [address], [place], [address], [facility] 6 13:41:12 Renewal of prescrip tion Completed 201305/01/2014 RECORDED 02/03/20 14 12:45PM BY LEN GREEN MA, COYATI ON/ADDEN DUM Christ Maldonado MD [address] [address], [place], [address], [facility] 6 13:41:12 Chronic sinusiti s 49209531 Completed 201105/01/2014 IMPRESSI ON: SEEMINGL Y CHRONIC/ RECURREN T WILL SEE IF IMAGING CONFIRMS THIS. CPAP TX LIKELY CONTRIBU TING WELL. TRY ANOTHER COURSE OF ABX AND CONSULT ENT FOR ADDITION AL MGMT OPTIONS. ; RECORDED 08/19/20 12 10:06AM BY BELL STAHL MA, ANNOTATI ON/ADDEN DUM Christ Maldonado MD [address], [place], [address], [facility] 6 13:41:12 Tubercul osis screenin g Completed 201305/01/2014 RECORDED 10/31/19 14 9:34AM BY BELL STAHL MA, NURSE VISIT Christ Maldonado MD [address] [facility] [address], [place], [address], [facility] 6 13:41:12 Tobacco dependen ce syndrome 03689088 Completed 201105/01/2014 RECORDED 08/16/20 12 3:43PM BY BELL STAHL MA, ANNOTATI ON/ADDMATT DUM Christ Maldonado MD [address] [facility] [address], [place], [address], [facility] 6 13:41:12 Dizzines s and giddines s [id number] Completed 201205/01/2014 IMPRESSI ON: LIKEY RELATED TO SINUS ISSUES, BUT IF PERSISTA NT/WORSE WILL NEED FURTHER EVAL.; RECORDED 06/13/20 13 10:43AM BY BELL STAHL MA, ANNOTATI ON/SRIRAM Maldonado MD [address] [facility] [address], [place], [address], [facility] 6 13:41:12 Type B viral hepatiti s [id number] Completed 201205/01/2014 RECORDED 07/26/20 13 2:55PM BY BELL STAHL MA, COYATI ON/SRIRAM DUM Christ Maldonado MD [address] [facility] [address], [place], [address], [facility] 6 13:41:12 Viral hepatiti s C 64849396 Completed 201205/01/2014 RECORDED 07/26/20 13 2:55PM BY BELL STAHL MA, ANNOTATI ON/SRIRAM Maldonado MD [address], [place], [address], [facility] 6 13:41:12 Dizzines s 528420866 Completed 11/15/2014 Christ Maldonado MD [address], [place], [address], [facility] 6 13:41:12 Environm ental allergy 334462549 Active Christ Maldonado MD [address], [place], [address], [facility] 6 13:41:12 Body mass index 25-29 - overweig ht 026730139 Active Christ Maldonado MD [address], [place], [address], [facility] 6 14:03:53 Depressi ve disorder 97748666 Active Christ Maldonado MD [address], [place], [address], [facility] 6 13:41:12 Anemia 218882923 Completed 201204/04/2014 RECORDED 07/26/20 13 2:55PM BY BELL STAHL MA, ANNOTATI ON/ADDEN DUM Christ Maldonado MD [address], [place], [address], [facility] 8 13:49:00 Dysthymi a [id number] Completed 201303/10/2016 STORY: DR JANICE Maldonado MD [address], [place], [address], [facility] 6 13:41:12 Patient status finding [id number] Completed 201204/04/2014 RECORDED 03/07/20 13 11:22AM BY BELL STAHL MA, ANNOTATI ON/ADDEN DUM Christ Maldonado MD [address], [place], [address], [facility] 6 13:41:12 Backache 957595335 Active 2013 Christ Maldonado MD [address], [place], [address], [facility] 7 14:28:17 Urinary tract obstruct ion 0868166 Completed 201304/04/2014 RECORDED 10/12/19 14 11:27AM BY BELL STAHL MA, ANNOTATI ON/ADDEN DUM Christ Maldonado MD [address], [place], [address], [facility] 7 14:32:48 Benign prostati c hyperpla kaylie 107640990 Active 2013 Pagar Christ Maldonado MD [address], [place], [address], [facility] 6 13:41:12 Lower urinary tract symptoms 675951943 Active 2013 Christ Maldonado MD [address], [place], [address], [facility] 6 13:41:12 Pain of hip region 55541415 Completed 201204/04/2014 RECORDED 03/07/20 13 11:22AM BY BELL STAHL MA, COYATI ON/ADDEN DUM Christ Maldonado MD [address], [place], [address], [facility] 6 13:41:12 Urinary tract obstruct ion 8171185 Active 2013 Christ Maldonado MD [address], [place], [address], [facility] 7 14:32:48 Breathin g painful [id number] Completed 201204/04/2014 IMPRESSI ON: SLOWLY IMPROVIN G, PT ON METHADON E. OTC NSAIDS ADVISED. 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 2012 Christ Maldonado MD [address], [place], [address], [facility] 7 14:27:30 Constipa tion 97582151 Active 2013 Christ Maldonado MD [address], [place], [address], [facility] 6 13:41:12 Dependen ce on enabling machine or device 240061172 Completed 201307/15/2017 Christ Maldonado MD [address], [place], [address], [facility] 7 14:27:31 Degenera tion of cervical interver tebral disc 79264329 Active 2013 STORY: C4 Christ Maldonado MD [address], [place], [address], [facility] 6 13:41:12 Type 2 diabetes mellitus without complica tion 434448035 Active 2013 Christ Maldonado MD [address], [place], [address], [facility] 6 14:03:53 Type 2 diabetes mellitus without complica tion 886080356 Completed 201204/04/2014 IMPRESSI ON: POOR CONTROL SECONDAR Y TO DIET/LIF ESTYLE. GOING TO A DIETICIA N AND WORKING WITH ENDO.; RECORDED 06/13/20 13 10:44AM BY BELL STAHL MA, COYATI ON/ADD DUM Christ Maldonado MD [address], [place], [address], [facility] 6 13:41:12 Follow-u p encounte r Completed 201304/04/2014 RECORDED 02/03/20 14 12:45PM BY LEN GREEN MA, COYATI ON/ADD DUM Christ Maldonado MD [address], [place], [address], [facility] 6 13:41:12 Influenz a vaccine needed [id number] 06 Completed 201204/04/2014 RECORDED 06/13/20 13 10:54AM BY BELL STAHL MA, OFFICE VISIT Christ Maldonado MD [address] [facility] [address], [place], [address], [facility] 6 13:41:12 Adult health examinat ion Completed 201304/04/2014 IMPRESSI ON: WILL UPDATE IMMUNIZA TION STATUS AND SCREEN BASED ON RISK FACTORS. REGULAR DENTAL CARE AND SEATBELT USE ADVISED. DISTRACT ED DRIVING BRADEN Kaufman. COLON CANCER SCREENIN G DUE 2014. PROSTATE CANCER SCREENIN G DONE VIA UROLOGY. ; RECORDED 10/12/19 14 11:27AM BY BELL STAHL MA, BERNADINE ON/BERTRAM Christ Maldonado MD [address], [place], [address], [facility] 6 13:41:12 Headache 77299426 Active 2013 Christ Maldonado MD [address], [place], [address], [facility] 6 13:41:12 Pure hypercho lesterol emia 048938852 Active 2013 Christ Maldonado MD [address], [place], [address], [facility] 6 14:03:53 Essentia l hyperten andrzej 17435839 Active 2013 Christ Maldonado MD [address] [facility] [address], [place], [address], [facility] 6 14:03:53 Essentia l hyperten andrzej 38129207 Completed 201304/04/2014 IMPRESSI ON: WELL CONTROLL ED ON CURRENT DOSE. WILL CONTIINU E IS.; RECORDED 02/03/20 14 12:45PM BY LEN GREEN MA, ANNOTATI ON/SRIRAM Maldonado MD [address] [facility] [address], [place], [address], [facility] 6 13:41:12 Disease of liver 361793782 Completed 201204/04/2014 RECORDED 07/26/20 13 2:55PM BY BELL STAHL MA, ANNOTATI ON/SRIRAM Maldonado MD [address] [facility] [address], [place], [address], [facility] 6 13:41:12 Testicul ar hypofunc tion 946750652 Active 2013 Dr. Jane Maldoando MD [address] [facility] [address], [place], [address], [facility] 6 13:41:12 Renewal of prescrip tion Completed 201304/04/2014 RECORDED 02/03/20 14 12:45PM BY LEN GREEN MA, ANNOTATI ON/SRIRAM Maldonado MD [address] [facility] [address], [place], [address], [facility] 6 13:41:12 Amnesia 35777113 Completed 201303/10/2016 IMPRESSI ON: PT CONTINUE S TO EXPERIEN CE SYMPTOMS . WILL TRY AGAIN TO COORD[place] TE NEUROPSY CH TESTING. ; RECORDED 02/28/20 14 2:10PM BY BELL STAHL MA, OFFICE VISIT Christ Maldonado MD [address] [facility] [address], [place], [address], [facility] 6 13:41:12 Obstruct malissa sleep apnea syndrome 38432489 Completed 201307/15/2017 Christ Maldonado MD [address] [facility] [address], [place], [address], [facility] 7 14:33:02 Chronic sinusiti s 36119484 Completed 201104/04/2014 IMPRESSI ON: SEEMINGL Y CHRONIC/ RECURREN T WILL SEE IF IMAGING CONFIRMS THIS. CPAP TX LIKELY CONTRIBU TING WELL. TRY ANOTHER COURSE OF ABX AND CONSULT ENT FOR ADDITION AL MGMT OPTIONS. ; RECORDED 08/19/20 12 10:06AM BY BELL STAHL MA, ANNOTATI ON/ADDEN DUM Christ Maldonado MD [address] [facility] [address], [place], [address], [facility] 6 13:41:12 Tubercul osis screenin g Completed 201304/04/2014 RECORDED 10/31/19 14 9:34AM BY BELL STAHL MA, NURSE VISIT Christ Maldonado MD [address] [facility] [address], [place], [address], [facility] 6 13:41:12 Tobacco dependen ce syndrome 45454474 Completed 201104/04/2014 RECORDED 08/16/20 12 3:43PM BY BELL STAHL MA, ANNOTATI ON/ADDEN DUM Christ Maldonado MD [address] [facility] [address], [place], [address], [facility] 6 13:41:12 Dizzines s and giddines s 207643093 Completed 201204/04/2014 IMPRESSI ON: LIKEY RELATED TO SINUS ISSUES, BUT IF PERSISTA NT/WORSE WILL NEED FURTHER EVAL.; RECORDED 06/13/20 13 10:43AM BY BELL STAHL MA, COYATI ON/ADDEN DUM Christ Maldonado MD [address], [place], [address], [facility] 6 13:41:12 Type B viral hepatiti s 09890515 Completed 201204/04/2014 RECORDED 07/26/20 13 2:55PM BY BELL STAHL MA, COYATI ON/ADDEN DUM Christ Maldonado MD [address], [place], [address], [facility] 6 13:41:12 Viral hepatiti s C 79402454 Completed 201204/04/2014 RECORDED 07/26/20 13 2:55PM BY BELL STAHL MA, COYATI ON/ADD DUM Christ Maldonado MD [address], [place], [address], [facility] 6 13:41:12 Vitamin D deficien cy 81831752 Active 2013 Christ Maldonado MD [address], [place], [address], [facility] 6 13:41:12 Acute sinusiti s 81663979 Completed 03/08/2015 Christ Maldonado MD [address], [place], [address], [facility] 6 13:41:12 Chronic obstruct malissa pulmonar y disease 13675892 Active 2014 Crhist Maldonado MD [address], [place], [address], [facility] 6 13:41:12 Painful rectal bleeding 214194703 Active Christ Maldonado MD [address], [place], [address], [facility] 6 13:41:12 Cramp 45874531 Active Christ Maldonado MD [address], [place], [address], [facility] 6 13:41:12 Calcific tendinit is 35509296 Completed 07/15/2017 shoulder Christ Maldonado MD [address], [place], [address], [facility] 7 14:33:47 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 809093662 Active Christ Maldonado MD [address] [facility] [address], [place], [address], [facility] 6 13:41:12 Memory impairme nt 996738443 Active Christ Maldonado MD [address] [facility] [address], [place], [address], [facility] 6 13:41:12 Hemorrho ids 57145148 Active Christ Maldonado MD [address] [facility] [address], [place], [address], [facility] 6 13:41:12 Uncontro lled type 2 diabetes mellitus 745036438 Active Christ Maldonado MD [address], [place], [address], [facility] 6 14:05:23 History of opioid abuse 47071014666 9100 Active 2016 Christ Maldonado MD [address], [place], [address], [facility] 7 14:32:34 History of viral hepatiti s 605386442 Active 2016 Christ Maldonado MD [address], [place], [address], [facility] 7 14:38:20 Anemia 640810224 Active 2017 Christ Maldonado MD [address] [facility] [address], [place], [address], [facility] 8 13:49:00 Abnormal thyroid hormone 355412827 Active 2017 Christ Maldonado MD [address] [facility] [address], [place], [address], [facility] 8 14:42:58 Problem Notes None recorded. Procedures Surgical History Date Name Laterality Status Provider Name and Address Organization Details Recorded Time 9 Colonoscopy completed Bell Stahl MA [facility] 03/10/2016 13:00:58 Appendectomy completed Bell Stahl MA [facility] 05/03/2014 10:03:36 Hernia Repair completed Bell [place] MA [facility] 05/03/2014 10:03:36 Imaging Results None recorded. Procedure Notes None recorded. Medical Equipment None Reported. Allergies Allergen ID Allergen Name Allergen Category Reaction Reaction Severity Criticality Documentation Date Start Date Code Code System Note Provider Name and Address Organization Details Recorded Time 4797 codeine medicatio n hives Not available Not available 04/04/20142013 2670 RxNorm Christ Maldonado MD [address] [facility] [address], [place], [address], [facility] 6 13:43:22 4798 naltrexon e hydrochlo ride medicatio n vomiting Not available Not available 04/04/20142013 48126 9 RxNorm Christ Maldonado MD [address], [place], [address], [facility] 6 13:43:22 4799 Talwin medicatio n nausea Not available Not available 04/04/20142013 8002 RxNorm Christ Maldonado MD [address] [facility] [address], [facility] [place], [address], [facility] 6 13:43:22 4800 tramadol Not available Not available Not available Not available 04/04/20142012 17072 RxNorm COMME NT: RECOR DED 06/13 11:19 AM BY CHRIST FITCH MD, ANNOT ATION /ADDE NDUM; Not Available [facility] 4 13:22:31 Medications Name Sig Start Date Stop Date Status Note LastModified by Organization Details LastModified Time Prescript ion - Prior Authoriza tion Request 12/12 completed Per pat would like a new rx or PA done. Not Available Not Available Not Available multivita min tablet TAKE 1 TABLET BY MOUTH EVERY DAY 2017 active Not Available Not Available Not Avai lable metformin 500 mg tablet Take 2 tablets twice a day by oral route. active Not Available Not Available No t Available Augmentin 875 mg-125 mg tablet Take 1 tablet every 12 hours by oral route for 10 days. 2014 active Not Available Not Available Not Avai lable gabapenti n 600 mg tablet active Not Available Not Available Not Available Anusol-HC 2.5 % rectal cream with applicato r Insert 1 applicat orful twice a day by rectal route as needed. 07/15 completed Not Available Not Available Not Available atorvasta tin 10 mg tablet DAILY 06/21 completed RECORDED 06/21/20 12 4:54PM BY CHRIST Archer MD, PHONE ENCOUNTE R; Not Available Not Available Not Available Xanax 2 mg tablet Take 3 tablets every day by oral route as needed. 12/[address] Janice Espinal [facility] Not Available Not Available Not Available simvastat in 10 mg tablet TAKE 1 TABLET BY MOUTH EVERY NIGHT AT BEDTIME 2017 active Not Available Not Available Not Avai lable clonazepa m 1 mg tablet active Not Available Not Available Not Available Anucort-H C 25 mg supposito ry UNWRAP AND INSERT 1 SUPPOSIT ORY RECTALLY TWICE DAILY NEEDED 07/15 completed Not Available Not Available Not Available glipizide ER 5 mg tablet, extended release 24 hr Take 2 tablets every day by oral route. active Not Available Not Available No t Available permethri n 5 % topical cream APPLY (THOROUG HLY MASSAGE INTO SKIN FROM HEAD TO SOLES OF FEET) BY TOPICAL ROUTE ONCE LEAVE ON FOR 8-14 HR, THEN REMOVE BY THOROUGH WASHING 07/15 completed Not Available Not Available Not Available triamcino lone acetonide 0.1 % topical cream APPLY A THIN LAYER TO THE AFFECTED AREA(S) BY TOPICAL ROUTE 2 TIMES PER DAY 07/15 completed Not Available Not Available Not Available magnesium oxide 400 mg (241.3 mg magnesium ) tablet Take 1 tablet every day by oral route for 30 days. 2014 active Not Available Not Available Not Avai lable lisinopri l 10 mg tablet TAKE 1 TABLET BY MOUTH EVERY DAY 2017 active Not Available Not Available Not Avai lable clonazepa m 2 mg tablet Take 1 tablet twice a day by oral route. 2016 active Not Available Not Available Not Avai lable oxycodone 5 mg capsule NEEDED active RECORDED 08/17/20 12 9:38AM BY CHRIST Archer MD, ANNOTATI ON/SRIRAM [place]; Not Available Not Available Not Available gabapenti n 300 mg capsule TWO TIMES DAILY 02/02 completed RECORDED 02/03/20 14 12:54PM BY LEN GREEN MA, OFFICE VISIT; Not Available Not Available Not Available lisinopri l 5 mg tablet TAKE 1 TABLET BY MOUTH DAILY 07/16 completed Not Available Not Available Not Available tamsulosi n ER 0.4 mg capsule,e xtended release AT BEDTIME 07/15 completed RECORDED 07/15/20 12 9:30AM BY BELL STAHL MA, OFFICE VISIT; Not Available Not Available Not Available ergocalci ferol (vitamin D2) 1,250 mcg (50,000 unit) capsule TAKE 1 CAPSULE BY MOUTH 1 TIME A WEEK 2016 active Not Available Not Available Not Avai lable cefuroxim e axetil 500 mg tablet TWO TIMES DAILY 08/27 completed RECORDED 08/29/20 12 5:11PM BY CHRIST Archer MD, MEDICATI ON AUTO-MARE CTIVATIO N; Not Available Not Available Not Available polyethyl lee glycol 3350 17 gram/dose oral powder MIX 1 CAPFUL( 17GRAMS) IN 8 OUNCES OF JUICE OR WATER AND DRINK DAILY NEEDED 2016 active Not Available Not Available Not Avai lable fluticaso ne propionat e 50 mcg/actua tion nasal spray,kaitlyn pension 2 SPRAYS INTO EACH NOSTRIL DAILY NEEDED 2016 active Pt requests refill Not Available Not Available Not Available terazosin 10 mg capsule DAILY 2014 active RECORDED 06/13/20 13 11:30AM BY CHRIST Archer MD, OFFICE VISIT; Not Available Not Available Not Available finasteri de 5 mg tablet Take 1 tablet every day by oral route. active Not Available Not Available No t Available Xanax 1 mg tablet Take 1 tablet every day by oral route as directed for 30 days. 10/12 completed Not Available Not Available Not Available loratadin e 10 mg tablet TAKE 1 TABLET BY MOUTH EVERY DAY 2017 active Not Available Not Available Not Avai lable methadone 5 mg/5 mL oral solution Take 50 mL every day by oral route. 2016 active Not Available Not Available Not Avai lable oxycodone 5 mg tablet NEEDED 07/13 completed RECORDED 07/13/20 13 12:17PM BY CHRIST Archer MD, MEDICATI ON AUTO-MARE CTIVATIO N; Not Available Not Available Not Available glycerin (adult) rectal supposito ry Insert 2.8 g by rectal route. 2014 active refill request Not Available Not Available Not Available Miralax NEEDED FOR CONSTIPA TION active RECORDED 01/15/20 13 10:25AM BY BERNADINE MARCELO ON/SRIRAM DUM; Not Available Not Available Not Available hydrocort isone-pra moxine 2.5 %-1 % (4g) rectal cream Insert 4 g twice a day by rectal route as needed. 2014 active Not Available Not Available Not Avai lable cholecalc iferol (vitamin D3) 1,250 mcg (50,000 unit) capsule ONCE A WEEK 11/21 completed RECORDED 11/22/19 14 1:15PM BY CHRIST Archer MD, PRESCRIP TION REFILL; Not Available Not Available Not Available glipizide ER 5 mg 24 hr tablet,ex tended release Take 1 tablet every day by oral route. 07/15 completed Not Available Not Available Not Available glycerin (laxative ) 2.8 gram/2.7 mL rectal solution Insert 3 times a week by rectal route. 06/25 completed Not Available Not Available Not Available AndroGel 20.25 mg/1.25 gram per pump act. (1.62 %) transderm al gel 3 pumps DAILY 2016 active Not Available Not Available Not Avai lable Vitals Date Recorded Body height Body weight Body mass index (BMI) Body temperature Oxygen saturation Oxygen saturation in Arterial blood by Pulse oximetry Heart rate Systolic blood pressure Diastolic blood pressure Provider Name and Address Organization Details Last Updated DateTime 7 182.88 cm 93991.6 6 g 27.4 kg/m2 99.4 [degF] 95 % 95 % 78 /min 147 mm[Hg] 87 mm[Hg] Danna Medrano [facility] 7 11:31:50 Date Recorded Body height Body weight Body mass index (BMI) Oxygen saturation Oxygen saturation in Arterial blood by Pulse oximetry Heart rate Body temperature Systolic blood pressure Diastolic blood pressure Provider Name and Address Organization Details Last Updated DateTime 7 182.88 cm 10272.8 4 g 27.7 kg/m2 96 % 96 % 67 /min 98.7 [degF] 115 mm[Hg] 76 mm[Hg] Bell Stahl MA [facility] 7 09:50:32 Date Recorded Body height Body mass index (BMI) Body weight Heart rate Body temperature Oxygen saturation Oxygen saturation in Arterial blood by Pulse oximetry Systolic blood pressure Diastolic blood pressure Provider Name and Address Organization Details Last Updated DateTime 7 182.88 cm 28.3 kg/m2 68358.8 1 g 64 /min 97.1 [degF] 97 % 97 % 109 mm[Hg] 68 mm[Hg] Bell Stahl MA [facility] 7 14:09:39 Date Recorded Body height Body mass index (BMI) Body weight Heart rate Body temperature Oxygen saturation Oxygen saturation in Arterial blood by Pulse oximetry Systolic blood pressure Diastolic blood pressure Provider Name and Address Organization Details Last Updated DateTime 8 182.88 cm 28.1 kg/m2 94271.6 2 g 90 /min 99.2 [degF] 98 % 98 % 118 mm[Hg] 72 mm[Hg] Bell Stahl MA [facility] 8 11:25:20 Date Recorded Body height Body mass index (BMI) Body weight Heart rate Oxygen saturation Oxygen saturation in Arterial blood by Pulse oximetry Body temperature Systolic blood pressure Diastolic blood pressure Provider Name and Address Organization Details Last Updated DateTime 8 182.88 cm 28.6 kg/m2 67246.9 9 g 52 /min 97 % 97 % 96.8 [degF] 110 mm[Hg] 70 mm[Hg] Bell Stahl MA [facility] 8 13:06:40 Social History Question Answer Notes LastModified by [employer] Details LastModified Time Tobacco Smoking Status Never Smoker Not Available [employer] 07/24/2020 03:36:37 Do You Have An Advance Directive? Yes HCP/ Daughter-N icole [id number] Information not available 07/24/2020 Is Blood Transfusion Acceptable In An Emergency? Yes [id number] Information not available 07/24/2020 What Is Your Level Of Caffeine Consumption? Occasional [id number] Information not available 07/24/2020 What Type Of Diet Are You Following? REGULAR [id number] Information not available 07/24/2020 Which Illicit Or Recreational Drugs Have You Used? Marijuanna Heroin In The Past [id number] Information not available 07/24/2020 Education 11 Information no t available 11/07/2014 Hard Of Hearing Or Deaf In One Or Both Ears? No Information not available 11/07/2014 Live Alone Or With Others? Alone Information not available 11/07/2014 Do You Take Precautions To Prevent Distracted Driving? Yes taina Information not available 03/10/2016 How Often Do You Need To Have Someone Help You When You Read Instructions, Pamphlets, Or Other Written Material From Your Doctor Or Pharmacy? Never Information not available 03/10/2016 Have You Served In The ? No Information not available 07/15/2017 What Was The Date Of Your Most Recent Tobacco Screening? 11/27/2017 [id number] Information not available 07/24/2020 How Many Children Do You Have? 3 2 Dtrs, 1 Son [id number] Information not available 07/24/2020 Do You Use Protection During Sex? Always [id number] Information not available 07/24/2020 Seat Belts Used Routinely Yes Information not available 11/07/2014 Are You Sexually Active? Yes [id number] Information not available 07/24/2020 Smoke Alarm In Home Yes Information not available 03/10/2016 Are You Passively Exposed To Smoke? No Information not available 03/10/2016 How Much Tobacco Do You Smoke? No [id number] Information not available 07/24/2020 Do You Use Sunscreen Routinely? Yes [id number] Information not available 07/24/2020 Sex: Unknown Functional Status Question Answer Note LastModified by Organizat ion Details LastModified Time What is your level of alcohol consumption? None [id number] Information not available 07/24/2020 Are you currently employed? No [id number] Information not available 07/24/2020 Are you able to care for yourself? Yes [id number] Information not available 07/24/2020 What is your occupation? disabled [id number] Information not available 07/24/2020 What is your exercise level? Occasional [id number] Information not available 07/24/2020 Mental Status None recorded. Family History Relationship Description Onset Age of this Age Resolved Age Notes LastModified by Organization Details LastModified Time Mother Osteoporosis awychowski Not rocío ilable 03/10/2016 13:44:30 Mother Heart disease awychowski Not available 03/10 13:44:30 Mother Diabetes mellitus awychowski Not available 03/10 13:44:30 Mother Dementia awychowski Not availab le 03/10/2016 13:44:30 Brother Hypertensive disorder awychowski Not available 03/10 13:44:31 Brother Congestive heart failure awychowski Not available 03/10 13:44:31 Father Congestive heart failure awychowski Not available 03/10 13:44:31 Son Well adult awsandip Not avail able 07/15/2017 14:30:38 Medical History Condition Response Coronary Artery Disease N Other N Gout N Kidney Stones N Blood Diseases N Hyperthyroidism N Breast Cancer N mrsa exposure N Hypothyroidism N Depression N COPD N Lung Disease N Developmental or Behavioral Disorders N Defects or Inherited Disease N Breast Problem N Anesthesia Complications N Headaches/Migraines N Varicose Veins N Anxiety Disorder Y Muscle, Joint, or Bone Problems N Obesity N Vision or Eye Problems N Arthritis N Head Injury/Concussion N Polyps N Infertility N Mental Disorder N Congenital Anomalies N Acid Reflux (GERD) N Cancer N Stroke N ADHD N Endometriosis N High Cholesterol Y Liver Disease N Headaches N Fibromyalgia N Kidney Disease N Heart Problems N Ear or Hearing Problems N Hospitalizations N Thyroid Problems N GI Problems N Developmental Delay N Acne N Skin Problems N Eating Disorder N Anemia N Constipation N Bladder Problems N Mental Illness N Ovarian Cancer N Diabetes Y Bedwetting N Blood Transfusions N Seizures/Epilepsy N Heart Problems/Murmur N Tuberculosis N AIDS/HIV N Congestive Heart Failure (CHF) N Eczema N Diverticulitis N Abuse/Domestic Violence N Asthma N Allergies N Reflux/GERD N Hepatitis N Heart Disease N Pulmonary Embolism N Hypertension Y Chicken Pox N Autism Spectrum Disorder (ASD) N Osteoporosis N Immunizations Vaccine Type Date Status Note Provider Nam e and Address Organization Details Recorded Time pneumococcal polysaccharide PPV23 5 completed Not Available [facility] 10/08/2019 02:21:42 influenza, seasonal, intradermal, preservative free [address] [facility] 08/02/2015 09:11:03 influenza, unspecified formulation [address] [facility] 08/02/2015 09:11:03 influenza, seasonal, intradermal, preservative free [address] [facility] 08/02/2015 09:11:03 Influenza, split virus, quadrivalent, preservative [address] [facility] 08/01/2016 11:11:22 Influenza, split virus, quadrivalent, preservative 7 completed ANGY Stallings, [facility] 07/15/2017 14:05:38 Tdap 9 completed Mendy steinberg, [facility] 08/02/2015 09:11:03 Hep A, adult 1 completed Mendy Hernandez MA maryan, [facility] 08/02/2015 09:11:03 Hep A, adult 2 completed Mendy Hernandez MA maryan, [facility] 08/02/2015 09:11:03 influenza, seasonal, intradermal, preservative free 2 completed Mendy steinberg, [facility] 08/02/2015 09:11:03 influenza, seasonal, intradermal, preservative free 3 completed Mendy steinberg, [facility] 08/02/2015 09:11:03 Past Encounters Encounter ID Performer Location Encounter Start Date Encounter Closed Date Diagnosis/Indication Diagnosis SNOMED-CT Code Diagnosis ICD10 Code Diagnosis Note [id number] auto[facility]Comm [facility] [address] [facility] [place] [address] 07/01/2012 00:00:00 [id number] autoEComm erce [address] [facility] [place] [address] 07/15/2012 00:00:00 [id number] autoEComm erce [address] [facility] [place] [address] 08/17/2012 00:00:00 [id number] autoEComm erce [address] [facility] [place] [address] 10/22/2012 00:00:00 [id number] autoEComm erce [address] [facility] [place] [address] 03/07/2013 00:00:00 [id number] autoEComm erce [address] [facility] [place] [address] 06/13/2013 00:00:00 [id number] auto[facility]Comm erce [address] [facility] [place], [place] [address] 10/12/2013 00:00:00 [id number] autoEComm erce [address] [facility] [place], [place] [address] 02/02/2014 00:00:00 [id number] autoEComm erce [address] [facility] [place], [place] [address] 02/27/2014 00:00:00 [id number] Christ Maldonado MD Main Office [address] [facility] [address] [place] [address] 05/03/2014 10:04:50 05/03/2014 10:56:40 Dizziness 199344616 Improving and suspicious for allergic etiology. Call inb/worse with allergy tx. 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 >25min spent completing form in patients presence as well as discussing above plan. [id number] Christ Maldonado MD Main Office [address] [facility] [address] [place] [address] 11/07/2014 12:41:29 11/07/2014 14:14:41 Adult health examination 009718409 Immunizati on status updated will screen based on risk factors. Regular dental and ophtho care advised as well as seatbelt and sunscreen use. Distracted driving discussed. Advance directives in place. Body mass index 25-29 - overweight 358307647 Essential hypertension 23015767 Obstructiv e sleep apnea syndrome 88175193 Pure hypercholesterolemia 673167793 LDL at goal. Continue current regimen. Vitamin D deficiency 85712919 Benign pro static hyperplasia 631416345 Screening for malignant neoplasm of colon 040295564 Patient is arranging f/u colonoscop y and EGD with Dr Mathis. Administra tion of pneumococcal vaccine 74212048 Depressive disorder 56995710 Followed and managed by Dr Espinal. [id number] SHARLA Kate Main Office [address] [facility] [address] [place] [address] 01/09/2015 10:14:39 01/09/2015 10:57:09 Acute sinusitis 18107789 Type 2 sebas betes mellitus without complication 579081913 reently worsening. endocrine started him on metformin. he feels ok on this [id number] Christ Maldonado MD Main Office [address] [facility] [address] [place] [address] 03/08/2015 11:10:46 03/08/2015 12:05:50 Essential hypertension 85647187 Well controlled on recheck. Will continue current regimen. Constipation 08260641 Ad equate hydration advised. Will try po magnesium supplement to see if helpful with this and muscle cramps. Painful re ctal bleeding 537154377 Likely hemorrhoid al vs fissure related. Will address constipati on and pt is arranging GI f/u for colonoscop y luisa. Cramp 33423229 [id number] Christ Maldonado MD Main Office [address] [place] [address] 08/02/2015 09:01:58 08/02/2015 09:54:42 Essential hypertension 51693313 I10 Well controlled . Will continue current regimen. Pure hypercholesterolemia 005021523 E78.0 LDL previously at goal. Continue current regimen and reassess. Obstructiv e sleep apnea syndrome 55486224 G47.33 Needs to establish care with new sleep medicine specialist . Memory impairment 613859 006 R41.3 Due for neuro follow up for this. Will ask Dr Hobbs to help with LE management as well. Type 2 sebas betes mellitus without complication 724059362 E11.9 Well controlled . Followed by Liban. Due for labs. [id number] Christ Maldonado MD Main Office [address] [place] [address] 12/05/2015 09:12:50 12/05/2015 10:04:45 Essential hypertension 37864205 I10 Well controlled . Will continue current regimen. Type 2 sebas betes mellitus without complication 396472771 E11.9 Well controlled . Followed by Liban. Due for labs. Orders from July reprinted. Pure hypercholesterolemia 419163655 E78.0 LDL previously at goal, but overdue for labs. Continue current regimen and reassess. Obstructiv e sleep apnea syndrome 25790245 G47.33 Needs to establish care with new sleep medicine specialist . Pt will address this issue with Dr. Hobbs. [id number] Christ Maldonado MD Main Office [address] [address] [place] [address] 03/10/2016 12:40:02 03/10/2016 14:10:16 Adult health examination 436959572 Z00.00 Immunizati on status updated will screen based on risk factors. Regular dental and ophtho care advised as well as seatbelt and sunscreen use. Distracted driving discussed. Advance directives in place. Body mass index 25-29 - overweight 435985744 E66.3 Essential hypertension 20195062 I10 Well controlled . Will continue current regimen. Pure hypercholesterolemia 126886675 E78.0 LDL previously at goal, but overdue for labs. Continue current regimen and reassess. Type 2 sebas betes mellitus without complication 749561957 E11.9 [id number] Christ Maldonado MD Main Office [address] [address] [place] [address] 05/29/2016 13:09:13 05/29/2016 14:31:51 Allergic reaction to insect bite 747144699 T78.40XA Supportive /symptomat ic tx advised while pursuing exterminat or evaluation . Call with and signs/symp toms of infection. [id number] Juanjo Dinh PA-C Main Office [address] [address] [place] [address] 06/25/2016 09:13:16 06/25/2016 10:13:13 Allergic reaction to insect bite 117808484 W57.XXXD urged pt to call derm 25 minute office visit with greater than 50% of the visit face-to-fa ce with the patient and/or family providing counseling and/or coordinati on of care. Allergic rhinitis 426094 04 J30.9 [id number] Christ Maldonado MD Main Office [address] [address] [place] [address] 07/11/2016 08:20:41 07/11/2016 09:52:08 Essential hypertension 43276024 I10 Not at goal. Will titrate ACEI to goal BP <140/90. Pure hypercholesterolemia 318842983 E78.01 LDL at goal. Continue current regimen. Obstructiv e sleep apnea syndrome 01771957 G47.[address] Hobbs. [id number] Christ Maldonado MD Main Office [address] [address] [place] [address] 09/04/2016 08:14:29 09/04/2016 09:17:10 Uncontrolled type 2 diabetes mellitus 106679515 E11.65 Has improved on metformin. Will reassess at the end of this month. Essential hypertension 64737273 I10 Well controlled , continue cuirrent regimen. Pure hypercholesterolemia 027384016 E78.01 LDL at goal. Continue current regimen. [id number] Margie Dinh PA-C Main Office [address] [address] [place] [address] 12/12/2016 10:59:52 12/12/2016 12:01:04 Eruption 154763130 R21 Psychogeni c skin disease 879046168 F54 obvious pt. perseveres about possible insects in his apartment. Requested permethrin , but has no evidence of scabies. Pt. will see dermatolog ist for itchy skin as discussed. [id number] Christ Maldonado MD Main Office [address] [address] [place] [address] 01/09/2017 09:15:16 01/09/2017 10:31:05 Uncontrolled type 2 diabetes mellitus 093831571 E11.65 Admits to dietary lapses. Has been on and tolerated a sulfonylur ea in the past will resume. Essential hypertension 94783150 I10 Well controlled , continue current regimen. Chronic dermatitis 06422 007 L30.9 ? psychosoma tic component. Unclear as to whether these lesions are from his environmen t or self inflicted. Will provide another course of permethrin as this has helped in the past. Generalize d anxiety disorder 10603307 F41.1 Has been getting weaned off of benzo. Foot callus 358507343 L8 4 Following with podiatry. [id number] Christ Maldonado MD Main Office [address] [address] [place] [address] 07/15/2017 13:16:51 07/15/2017 15:51:21 Adult health examination 543812564 Z00.00 Immunizati on status utd, will screen based on risk factors. Regular dental and ophtho care advised as well as seat belt and sunscreen use. Distracted driving discussed. Advance directives in place. Uncontroll ed type 2 diabetes mellitus 371853276 E11.[address] Lara on this issues. Defer mgmt decisions to her. Body mass index 25-29 - overweight 327876303 E66.3 Z68.28 Testicular hypofunction 665587660 E29.1 Managed and monitored by endocrinol ogwilfrido. Pure hypercholesterolemia 338020337 E78.01 LDL at goal. Continue current regimen. History of viral hepatitis 957049621 Z86.19 Will confirm remission and adequate immunizati on status. [id number] Christ Maldonado MD Main Office [address] [facility] [address] [place] [facility] [place] [address] 10/12/2017 09:56:46 10/12/2017 12:14:22 Upper respiratory infection 11476987 J06.9 Supportive measures. Nasal saline, fluids, rest, mucinex DM. Pt advise to return if sx worsen ( productive cough with green colored sputum, worsening sinus tenderness ) [id number] Christ Maldonado MD Main Office [address] [facility] [address] [place] [facility] [place] [address] 11/27/2017 12:35:36 11/27/2017 13:47:52 Pure hypercholesterolemia 040602881 E78.01 LDL previosuly at goal. Continue current regimen, and reassess. Essential hypertension 07238599 I10 Well controlled , continue current regimen. Type 2 sebas betes mellitus without complication 119219336 E11.9 Followed by endo. Will check labs and forward results to Dr. Lara. Anemia 401259170 D64.9 Health Concerns Section Related Observation LastModified by Organization Detai ls LastModified Time None Recorded Concern Status LastModified by Organization Details LastModified Time None Recorded Advance Directives Directive Y: HCP/ Daughter-Ashlee Payers Encounter Date Sequence Insurance Name Policy Number Policy Sy Covered Member ID Sy Member ID Guarantor Name 12/12/2016 1 [place] [facility] Karthik Unique Crenshaw [id number] Karthik Crenshaw 01/09/2017 1 [place] [facility] Karthik Crenshaw [id number] Karthik Crenshaw 07/15/2017 1 [place] [facility] Karthik Crenshaw [id number] Karthik Crenshaw 10/12/2017 1 [place] [facility] Karthik Crenshaw [id number] Karthik Crenshaw 11/27/2017 1 [place] [facility] Karthik Crenshaw [id number] Karthik Crenshaw Notes Date Note Type Note Provider Name and Address Organization Details Recorded Time 7 text/html 56 year old male c/o possible insect infestation in his apartment. Has itchy skin. Reports seeing tiny black insects all over the apartment . Has skin itching frequently. Had insect inspection in the apartment, but reports they sprayed it and it did not work . Pt. also is requesting referral to dermatology whom he saw in the past and was given promethium to use. Christ Maldonado MD [address], [address], [facility] 12/14/2016 21:50:34 7 text/html Diabetes F/UReported bypatient.Context:normal range of home blood sugars (in the low 100s); seeing eye doctor regularly; taking aspirin daily Associated Symptoms:weight gain (5 lbs)Notes:A1c was 7.7 in Oct. Today 8.4. Was on sulfonylurea in the past.HyperlipidemiaRepor fidel bypatient.Control:usuall y well controlled; at goal Current Therapy:currently taking: (simvastatin); last cholesterol level: (152); last LDL level: (80); last triglyceride level: (55); last HDL level: (61) Compliance:compliant with diet;does not exercise Complications:no coronary artery disease; no peripheral artery disease; no cardiovascular diseaseHypertension F/UReported bypatient.Associated Symptoms:no dizziness; no lightheadedness; no chest pain; no shortness of breath; no palpitations; no edema Lifestyle:limiting/avoid ing salt;not exercising regularly Medications:taking medications as directed; no side effects from medicationSkin LesionReported bypatient.Location:feet Quality:painful; tender Duration:started >5 year(s) ago Onset/Timing:fluctuating Associated Symptoms:no feverNotes:has been present in an intermittent capacity for many years. Followinf with podiatry. 56 year old male c/o possible insect infestation in his apartment. Has itchy skin. Reports seeing tiny black insects all over the apartment . Has skin itching frequently. Had insect inspection in the apartment, but reports they sprayed it and it did not work . Pt. also is requesting referral to dermatology whom he saw in the past and was given permethrin to use. Christ Maldonado MD [address], [address], [facility] [place] 01/09/2017 10:36:28 7 text/html Generic HPI TemplateReported bypatient.Notes:Feeling fairly well. Here for a physical. Seeing ophtho regularly. Has dentures. Christ Maldonado MD [address] [address], [place], [address], [facility] 08/03/2017 08:22:02 8 text/html This is a 57 y/o M who present to the office today complaining of flulike sx for the past 3 days. Pt reports productive yellowish brown cough, CANALES, fevers, chills. Never took temp at home. Temp is 99.2 in the office. Has been taking aspirin 325mg 6tabs daily. Feels sx is worsening. Pt reports sick contacts. Christ Maldonado MD [address], [address], [facility] 10/14/2017 06:27:17 8 text/html Diabetes F/UReported bypatient.Context:normal range of home blood sugars (in the low 100s); seeing eye doctor regularly; taking aspirin daily Associated Symptoms:weight gain (4 lbs)HyperlipidemiaReport ed bypatient.Control:usuall y well controlled; at goal Current Therapy:currently taking: (simvastatin); last cholesterol level: (138); last LDL level: (81); last triglyceride level: (55); last HDL level: (43) Compliance:compliant with diet;does not exercise Complications:no coronary artery disease; no peripheral artery disease; no cardiovascular disease Risk Factors:diabetes;hyperte nsionHypertension F/UReported bypatient.Associated Symptoms:no dizziness; no lightheadedness; no chest pain; no shortness of breath; no palpitations; no edema Lifestyle:limiting/avoid ing salt;not exercising regularly Medications:taking medications as directed; no side effects from medication Christ Maldonado MD [address] [address], [place], [address], [facility] 11/27/2017 13:50:01
--- OUTSIDE RECORDS SUMMARY | 2025-02-07 12:12 | XMS_ITS | Clinical Summary ---
Author Organization [address] [place] [address] Address [address] [place] [address] Phone Care Team Providers Care Electrical Sign Servicer Name Role Phone Grady Sanders MD Primary Care Provider [phone] Allergies Active Allergy Reactions Criticality Noted Date Comments Sulfamethoxazole-Trimethoprim 2024 Codeine 11/23/2024 Encounters Date Type Department Care Team Description 11/23/2024 9:00 AM EST Consult Orthopedic Surgery [facility] [address] [facility] [address] [place] [address] Steve Downs, DPM Dermatophytosis of nail (Primary Dx); [place] of toe; Pain in toe of right foot; Corns and callosities; Pain in toe of left foot; Metatarsalgia of both feet; Diabetic mononeuropathy simplex (CMS/HCC V24, CMS/HCC V28); Hallux rigidus of left foot; Hallux rigidus of right foot; Type II diabetes mellitus with peripheral circulatory disorder (CMS/HCC V24, CMS/HCC V28) from Last 3 Months Social History Tobacco Use Types Packs/Day Years Used Date Smoking Tobacco: Never Assessed Sex and Gender Information Value Date Recorded Sex Assigned at Not on file Legal Sex Male 1:11 AM EST Gender Identity Not on file Sexual Orientation Not on file Last Filed Vital Signs Vital Sign Reading Time Taken Comments Blood Pressure - - Pulse - - Temperature - - Respiratory Rate - - Oxygen Saturation - - Inhaled Oxygen Concentration - - Weight 89.4 kg (197 lb) 11/23/2024 9:05 AM EST Height 182.9 cm (6') 11/23/2024 9:05 AM EST Body Mass Index 26.72 11/23/2024 9:05 AM EST Plan of Treatment Upcoming Encounters Date Type Department Care Team (Late st Contact Info) Description 02/23/2025 9:00 AM EDT Consult Orthopedic Surgery - [place] [address] [address] Steve Downs, DPM [address] [address] Health Maintenance Due Date Last Done Comments Diabetes: Annual Foot Exam 1969 Diabetes: Annual Retina Eye Exam 1970 Hepatitis B Vaccines (1 of 3 - Risk 3-dose series) 2019 RSV Immunization Adult Patients (1 - Risk 60-74 years 1-dose series) 2019 Hepatitis C Screening 08/24/2022 Medicare Annual Wellness Visit 08/24/2022 Social Influencers of Health Screening 08/24/2022 Colorectal Cancer Screening: Stool Based Tests (FOBT/FIT) 04/01/2024 04/01/2023 Falls Risk Assessment 2024 COVID-19 Vaccine (8 - Moderna risk season) 2025 07/15/2024, 07/10/2023, 07/18/2022, Additional history exists Diabetes: Blood Sugar Control Test (HGBA1C) 04/30/2025 10/31/2024 Depression Screening 07/15/2025 07/15/2024 Diabetes: Annual Urine Albumin-Creatinine Ratio (uACR) 07/27/2025 07/27/2024, 04/28/2024, 07/10/2023, Additional history exists Diabetes: Annual GFR (Glomerular Filtration Rate) 07/27/2025 07/27/2024 Hypertension/CHF/CAD Annual BMP Blood Test 07/27/2025 07/27/2024 Cholesterol Screening (Lipid Panel) 10/16/2028 10/16/2023 DTaP,Tdap,and Td Vaccines (4 - Td or Tdap) 05/14/2031 05/14/2021, 12/20/2015, 06/11/2009 Hepatitis A Vaccines Completed 03/11/2012, 08/20/20 11 Zoster Vaccines Completed 11/21/2022, 07/18/2019 Pneumococcal Vaccine: 50+ Years Completed 01/02/2023, 11/07/2014 Pneumococcal Vaccine: Pediatrics (0 to 5 Years) and At-Risk Patients (6 to 64 Years) Completed 01/02/2023, 11/07/2014 Influenza Vaccine Completed 07/15/2024, , 07/18/2022, Additional history exists HIB Vaccines Aged Out No longer eligi ble based on patient's age to complete this topic HPV Vaccines Aged Out No longer eligi ble based on patient's age to complete this topic IPV Vaccines Aged Out No longer eligi ble based on patient's age to complete this topic MMR Vaccines Aged Out No longer eligi ble based on patient's age to complete this topic Meningococcal ACWY Vaccine Aged Out N o longer eligible based on patient's age to complete this topic Meningococcal B Vaccine Aged Out No l onger eligible based on patient's age to complete this topic RSV Immunization Patients Under 20 months Aged Out No longer eligible based on patient's age to complete this topic Varicella Vaccines Aged Out No longer eligible based on patient's age to complete this topic Insurance [facility] MEDICARE Member Subscriber Plan / Payer (Ef fective 2024-Present) Name:Karthik Crenshaw Relation to Subscriber:Self Name:Karthik Crenshaw Payer ID:[id number] Group ID:[id number] Type:Not on file Address: [place] [address] [address] Advance Directives Documents on File Type Date Recorded Patient Junior Programmer Expl anation Health Care Decision (hx) 05/10/2022 AD DELA CRUZ DIRECTIVE Health Care Decision (hx) 05/10/2022 AD DELA CRUZ DIRECTIVE Health Care Decision (hx) 05/10/2022 AD DELA CRUZ DIRECTIVE Health Care Decision (hx) 05/10/2022 AD DELA CRUZ DIRECTIVE Health Care Decision (hx) 05/07/2022 AD DELA CRUZ DIRECTIVE Health Care Decision (hx) 05/07/2022 AD DELA CRUZ DIRECTIVE Health Care Decision (hx) 05/07/2022 AD DELA CRUZ DIRECTIVE Health Care Decision (hx) 05/07/2022 AD DELA CRUZ DIRECTIVE Care Teams Electrical Sign Servicer Relationship Specialty Start Date End Date Grady Sanders MD [address] [place] [address] PCP - General Internal Medicine 09/02/24
--- OUTSIDE RECORDS SUMMARY | 2025-02-07 12:12 | XMS_ITS | Encounter Summary ---
Author Organization [facility] Address [address] [place] [address] Care Team Providers Care Record Center Specialist Name Role Phone Grady Sanders MD Primary Care Provider + [phone] Reason for Visit * Reason Comments Medication Management Encounter Details Date Type Department Care Team (Latest Contact Info) Description 02/06/2025 10:40 AM EDT [facility] [address] [place] [phone] Nadiya Hill RN [address] [place] [address] Testosterone insufficiency (Primary Dx) Social History Tobacco Use Types Packs/Day Years Used Date Smoking Tobacco: Never Passive Smoke Exposure: Past Smokeless Tobacco: Never Alcohol Use Standard Drinks/Week Comments Not Currently 0 (1 standard drink = 0.6 oz pur e alcohol) Social Connections Answer Date Recorded Connectedness 2 07/15/2024 Financial Resource Strain Answer Date R ecorded Financial Resource Strain 1 2023 Stress Answer Date Recorded Stress 1 07/15/2024 Physical Activity Answer Date Recorded Physical Activity 0 06/17/2022 Food Insecurity Answer Date Recorded Food 1 07/15/2024 Transportation Needs Answer Date Record ed Transportation 1 07/15/2024 Housing Stability Answer Date Recorded Housing 1 07/15/2024 Safety and Environment Answer Date Subhash rded Safety 1 03/15/2024 Utilities Answer Date Recorded Utilities 1 07/15/2024 Employment Answer Date Recorded Stress 0 01/02/2023 Sex and Gender Information Value Date Recorded Sex Assigned at Male 06/17/2022 8:31 AM PDT Legal Sex Male 6:49 AM PDT Gender Identity Male 06/17/2022 8:31 AM PDT Sexual Orientation Straight 06/17/2022 8: 31 AM PDT documented as of this encounter Progress Notes * Andrae Rivera - 02/06/2025 10:42 AM EDT .SUBJECTIVE: Karthik Crenshaw is a 64 year old male who presents to the clinic for biweekly Testosterone OBJECTIVE: Allergies[1] TESTOSTERONE, TOTAL, LC/MS/MS Date Value Ref Range Status 10/17/2022 308 250 - 1,100 ng/dL Final Comment: Men with clinically significant hypogonadal symptoms and testosterone values repeatedly in the range of the 200-300 ng/dL or less, may benefit from testosterone treatment after adequate risk and benefits counseling. For additional information, please refer to http://education.Synchronica/faq/ ZtheqUzoekidpdtivJRHHROJRD567 (This link is being provided for informational/ educational purposes only.) This test was developed and its analytical performance characteristics have been determined by [facility] [place]. It has not been cleared or approved by the U.S. Food and Drug Administration. This assay has been validated pursuant to the CLIA regulations and is used for clinical purposes. FREE TESTOSTERONE Date Value Ref Range Status 10/17/2022 40.7 35.0 - 155.0 pg/mL Final Comment: This test was developed and its analytical performance characteristics have been determined by [facility] [place]. It has not been cleared or approved by the U.S. Food and Drug Administration. This assay has been validated pursuant to the CLIA regulations and is used for clinical purposes. ASSESSMENT/PLAN: No chief complaint on file. Karthik Crenshaw had no medications administered during this visit. RN administered medication in right deltoid. Patient tolerated injection well. Appointment booked for next visit in 1 month. Recent Visits Date Type Provider Dept 07/15/24 Office Visit Grady Sanders MD [facility] 1049 03/15/24 Office Visit Grady Sanders MD [facility] 860 Showing recent visits within past 365 days with a meds authorizing provider and meeting all other requirements Future Appointments No visits were found meeting these conditions. Showing future appointments within next 90 days with a meds authorizing provider and meeting all other requirements DEEPALI Abebe 02/06/2025, 10:42 AM EDT [1] Allergies Allergen Reactions Pentazocine Lactate Nausea Only Semaglutide Diarrhea documented in this encounter Plan of Treatment Upcoming Encounters Date Type Department Care Team (Late st Contact Info) Description 02/14/2025 10:40 AM EDT Interim Notes [address] [phone] 02/14/2025 11:00 AM EDT Office Visit [address] [phone] Toney Serrano, PharmD [address] [place] [address] 02/14/2025 11:40 AM EDT Interim Notes [address] [address] 02/21/2025 10:20 AM EDT Interim Notes [address] [address] 02/21/2025 10:40 AM EDT Office Visit [address] [phone] 02/21/2025 11:20 AM EDT Interim Notes [address] [address] 02/22/2025 2:50 PM EDT Interim Notes [address] [address] 02/22/2025 3:20 PM EDT Office Visit [address] [phone] Grady Sanders MD [address] [place] [address] 02/22/2025 3:50 PM EDT Interim Notes [address] [address] documented as of this encounter Visit Diagnoses Diagnosis Testosterone insufficiency- Primary Other testicular hypofunction documented in this encounter Administered Medications Active Administered Medications - up to 3 most recent administrations Medication Order MAR Action Action Date Dose Rate Site testosterone cypionate (Depo-Testosterone) injection 100 mg 100 mg, intramuscular, Every 14 days, First dose on Thu02/06/25 at 1115, For 26 dosesIndications:Testosteron e insufficiency Given 02/06/2025 11:25 AM EDT 100 mg Right Deltoid documented in this encounter Additional Health Concerns Assessment Noted Time PHQ-9 Depression Total Score: 12 024 10:31 AM PDT documented as of this encounter Care Teams Record Center Specialist Relationship Specialty Start Date End Date Grady Sanders MD [facility] [place] [address] PCP - General Internal Medicine 07/18/22 documented as of this encounter
--- OUTSIDE RECORDS SUMMARY | 2025-02-07 12:13 | XMS_ITS | Continuity of Care Document ---
Author Organization [facility] Address 1 [facility] [address] [place] [address] Phone Care Team Providers Care Spa Manager Name Role Phone Os SUGAR PLANTATION MANAGER, Shannan Unavailable Unavailable Allergies, Adverse Reactions, Alerts Substance Reaction Status Criticality tramadol Unknown Reaction Active No Informat ion PENTAZOCINE LACTATE Nausea Active No Infor mation naltrexone Nausea Active No Information codeine Hives Active No Information Medications Medication Instructions Dosage Effective Dates (start - stop) Status Comments Acetaminophen 325MG TABS TAKE 2 TABLETS EVERY SIX HOURS NEEDED ( NOT TO EXCEED TAKE 4 TABLETS DAILY ) - Active VITAMIN B-12 100 MCG TABLET TAKE 1 TABLET BY MOUTH EVERY DAY - Active DOCUSATE SODIUM 100 MG SOFTGEL TAKE 1 CAPSULE BY MOUTH EVERY DAY AT BEDTIME NEEDED - Active VITAMIN D3 2,000 UNIT SOFTGEL TAKE 2 CAPSULES BY MOUTH EVERY DAY 2 capsule - Active Moisturizing Cream topical apply to affected areas 3x daily as needed - Active Preparation H Hydrocortisone 1 % topical cream apply by topical route 2 times every day a thin layer to the rectal area as needed - Active Pen Needle 32 gauge x 5/32 use with ozempic pen - Active Hot and Cold Pain Relief 4 %-1 % topical patch Apply patch to right lower abdomen daily Am, remove at bedtime. - Active May Sub alternat e product if needed for coverage aspirin 81 mg tablet,delayed release TAKE 1 TABLET BY MOUTH EVERY DAY - Active Diabetic Shoes MISCELL Use daily - Active 1 pair DM shoe s and custom inserts. Dx is DM with polyneuroapthy multivitamin with minerals tablet take 1 tablet by oral route every day with food - Active glipizide ER 2.5 mg tablet, extended release 24 hr take 1 tablet by oral route every day BID - Active Endocrine restarted glycerin (adult) rectal suppository INSERT 1 PER RECTUM DAILY NEEDED FOR CONSTIPATION - Active LISINOPRIL 10 MG TABLET TAKE 1 TABLET BY MOUTH EVERY DAY 10 MG - Active TAMSULOSIN HCL 0.4 MG CAPSULE TAKE 1 CAPSULE BY MOUTH EVERY DAY WITH A MEAL - Active FINASTERIDE 5 MG TABLET TAKE 1 TABLET BY MOUTH EVERY DAY - Active SIMVASTATIN 10 MG TABLET TAKE 1 TABLET BY MOUTH EVERY DAY IN THE EVENING - Active gabapentin 600 mg tablet take 1 tablet by oral route three times daily - Active magnesium 400 mg (as magnesium oxide) capsule take 1 capsule by oral route every evening---Rx by Neurology - Active Fiber-Caps (psyllium husk) 0.52 gram capsule TAKE 1 CAPSULE BY MOUTH TWICE DAILY - Active clonazepam 2 mg tablet take 1 tablet by oral route 2 times every day---Rx by Dr. Antoinette Ivey - Active METFORMIN HCL 1,000 MG TABLET TAKE 1 TABLET BY MOUTH TWICE A DAY WITH FOOD 1000 MG - Active Bengay Ultra Strength (menthol) 5 % topical patch Apply to lower abdomen daily. Remove at night - Active senna 8.6 mg tablet take 2 tablet by oral route 2 times every day as needed for constipation 2 tablet - Active HYDROCORTISONE 1% CREAM APPLY BY TOPICAL ROUTE 2 TIMES EVERY DAY A THIN LAYER TO THE RECTAL AREA NEEDED - Active Miralax 17 gram/dose oral powder TAKE (17G) BY ORAL ROUTE EVERY DAY MIXED WITH 8 OZ. WATER, JUICE, SODA, COFFEE OR TEA - Active TESTOSTERONE GEL 1.62% APPLY 3 PUMPS DAILY TOPICALLY DIRECTED - Active trazodone 100 mg tablet take 1 tablet by oral route every bedtime-from psych - Active Advance Directives Directive Yes / No Effective Date File Name No Information Encounters Encounter Description Practice Location Reason(s) For Visit Diagnoses Date Provider [facility], [facility], [place], [place], [id number], [place] tel:[phone] [place] No Information 3 Os Shannan. [address] [place], [id number], [place]. tel:[phone] [facility], [facility], [place], [place], [id number], [place] tel:[phone] [place] No Information 3 Os Shannan. [address] [place], [id number], [place]. tel:[phone] [facility], [address] [address], [place], [place], [id number], [place] tel:[phone] [place] PHV (chief complaint)Telyl Headley C WINFORMS DEVELOPER note (chief complaint) Type 2 diabetes mellitus with hyperglycemia, unspecified whether ferry terminal supervisor insulin useGAD (generalized anxiety disorder)MCI (mild cognitive impairment)Cardiomyopath y, unspecified typeChronic kidney disease, stage 2 (mild)Hepatitis C virus infection without hepatic coma, unspecified chronicity 2 Os Shannan. [address] [place], [id number], [place]. tel:[phone] [facility], 1 [facility], [place], [place], [id number], [place] tel:[phone] [place] Skin tag 2 Angel Patterson. [address] [place], [id number], [place]. tel:[phone] [facility], 1 [facility], [place], [place], [id number], [place] tel:[phone] [place] No Information 2 Angel Patterson. [address] [place] [place], [id number], [place]. tel:[phone] [facility], [facility], [place], [place], [id number], [place] tel:[phone] [place] No Information 2 Tristonb Antonio. [address] [facility], [place], [address], [place]. tel:[phone] [facility], [facility], [place], [place], [id number], [place] tel:[phone] [place] Diabetic nutritional counseling completedEncounter for nutritional assessmentExcessive carbohydrate intake 2 Normile Elena. [address] [place], [id number], [place]. tel:[phone] [facility], [facility], [place], [place], [id number], [place] tel:[phone] [place] FUV (chief complaint) Type 2 diabetes mellitus with hyperglycemia, without long-term current use of insulin 2 Fang Dobbins. [address] [place], [id number], [place]. tel:[phone] [facility], [address], [id number], [place] tel:[phone] [place] Diabetic nutritional counseling completedEncounter for nutritional assessmentExcessive carbohydrate intake 2 Normile Elena. [address] [place], [id number], [place]. tel:[phone] [facility], [facility], [place], [place], [id number], [place] tel:[phone] [place] Encounter for rehabilitation evaluation 2 Shanelle Rolan. [address] [place], [address]. tel:[phone] [facility], [address], [place], [place], [id number], [place] tel:[phone] [place] Encounter for rehabilitation evaluationMild cognitive impairment, so statedOther chronic pain 2 Shiva Evans. [address] [place], [id number]. tel:[phone] [facility], [address], [place], [place], [address], [place] tel:[phone] [place] FUV (chief complaint) Type 2 diabetes mellitus with hyperglycemia, without long-term current use of insulin 2 Fang Dobbins. [address] [place], [id number], [place]. tel:[phone] [facility], [address] [facility], [place], [place], [id number], [place] tel:[phone] [place] No Information 2 Angel Patterson. [address] [facility] [place] [id number], [place]. tel:[phone] [facility], [address] [facility] [address], [place], [place], [id number], [place] tel:[phone] [place] Nurse Assessment (chief complaint) No Information 2 Angel Patterson. [address] [facility] [place], [id number], [place]. tel:[phone] [facility], [address], [place], [place], [id number], [place] tel:[phone] [place] Major depressive disorder, recurrent, moderateOther ferry terminal supervisor (current) drug therapyGeneralized anxiety disorder 2 Fang Dobbins. [address] [place], [id number], [place]. tel:[phone] [facility], [address], [place], [place], [id number], [place] tel:[phone] [place] Type 2 diabetes ale itus with diabetic polyneuropathy, without long-term current use of insulin 2 Angel Leonardo. [address] [place], [id number], [place]. tel:[phone] [facility], [facility], [place], [place], [id number], [place] tel:[phone] [place] DINORAH (chief complaint) Cardiomyopathy, unspecified typeAbnormal echocardiogramHyperlipid emia, unspecified hyperlipidemia typeType 2 diabetes mellitus with diabetic polyneuropathy, without long-term current use of insulinType 2 diabetes mellitus with stage 2 chronic kidney disease, without long-term current use of insulinChronic kidney disease, stage 2 (mild)Type 2 diabetes mellitus with diabetic cataract, without long-term current use of insulinLong term (current) use of oral hypoglycemic drugsHypogonadotropic hypogonadismVitamin D deficiencyCombined forms of age-related cataract, bilateralHistory of hepatitis CEdentulousSteatosis of liverHypertensive chronic kidney disease with stage 1 through stage 4 chronic kidney disease, or unspecified chronic kidney diseaseBenign prostatic hyperplasia with lower urinary tract symptoms, symptom details unspecifiedGAD (generalized anxiety disorder)Major depressive disorder, recurrent, moderateCannabis use, unspecified, uncomplicatedOpioid dependence, in remissionChronic migraine without aura, intractable, without status migrainosusDyspnea, unspecified typeModerate obstructive sleep apneaInsomnia, unspecified typeOther psychoactive substance use, unspecified with psychoactive substance-induced sleep disorder 2 Fang Dobbins. [address] [place], [id number], [place]. tel:[phone] [facility], [address] [address], [place], [place], [id number], [place] tel:[phone] [place] No Information 2 Os Shannan. [address] [place], [id number], [place]. tel:[phone] [facility], [address], [place], [place], [id number], [place] tel:[phone] [place] FUV (chief complaint) No Information 2 Os Shannan. [address] [place], [id number], [place]. tel:[phone] [facility], [facility] [address], [place], [place], [id number], [place] tel:[phone] [place] Type 2 diabetes ale itus with diabetic polyneuropathy, unspecified whether custodial insulin use 2 Os Shannan. [address] [place], [id number], [place]. tel:[phone] [facility], [address] [facility] [address], [place], [place], [id number], [place] tel:[phone] [place] No Information 2 Angel Leonardo. [address] [facility] [place] [place], [id number], [place]. tel:[phone] [facility], [address] [facility], [place], [place], [id number], [place] tel:[phone] [place] No Information 2 Os Shannan. [address] [place], [id number], [place]. tel:[phone] [facility], [address] [facility] [address], [place], [place], [id number], [place] tel:[phone] [place] Encounter for rehabilitation evaluation 2 Theroux Christina. [address] [place], [address]. tel:[phone] [facility], [address] [facility] [address], [place], [place], [id number], [place] tel:[phone] [place] No Information 2 Angel Leonardo. [address] [place], [id number], . tel:[phone] [facility], [address] [facility], [place], [place], [id number], [place] tel:[phone] [place] No Information 2 Theroux Christina. [address] [place], [address]. tel:[phone] [facility], [facility], [place], [place], [id number], [place] tel:[phone] [place] halfway (current) use of oral hypoglycemic drugs 2 Os Shannan. [address] [place], [place], [id number], [place]. tel:[phone] [facility], [facility], [place], [place], [id number], [place] tel:[phone] [place] No Information 2 Farb Antonio. [address] [place], [address], [place]. tel:[phone] [facility], [facility], [place], [place], [id number], [place] tel:[phone] [place] DINORAH (chief complaint)m ed rec/ ELODIA (chief complaint) Hypertensive chronic kidney disease with stage 1 through stage 4 chronic kidney disease, or unspecified chronic kidney diseaseCardiomyopathy, unspecified typeHyperlipidemia, unspecified hyperlipidemia typeType 2 diabetes mellitus with diabetic polyneuropathy, without long-term current use of insulinType 2 diabetes mellitus with stage 2 chronic kidney disease, without long-term current use of insulinType 2 diabetes mellitus with diabetic cataract, unspecified whether ferry terminal supervisor insulin useLong term (current) use of oral hypoglycemic drugsHypogonadotropic hypogonadismGAD (generalized anxiety disorder)Major depressive disorder, recurrent, moderateCannabis abuse, uncomplicatedOpioid dependence, in remissionChronic migraine without aura, intractable, without status migrainosusBenign prostatic hyperplasia with lower urinary tract symptoms, symptom details unspecifiedCombined forms of age-related cataract, bilateralMCI (mild cognitive impairment)Abnormal echocardiogramAbnormal MRIModerate obstructive sleep apneaAdverse effect of methadone in therapeutic use, sequelaChronic kidney disease, stage 2 (mild) 1 Tim Man. [address] [place] [place], [id number], [place]. tel:[phone] [facility], [facility], [place], [place], [id number], [place] tel:[phone] [place] No Information 1 Angel Patterson. [address] [facility] Hospital[facility] [place], [id number], [place]. tel:[phone] [facility], [facility], [place], [place], [id number], [place] tel:[phone] [place] No Information 1 Angel Patterson. [address] [facility] [place], [id number], [place]. tel:[phone] [facility], [facility] [address] [place] [address], [id number], [place] tel:[phone] [place] Encounter for rehabilitation evaluation 1 Shanelle Gongora. [address] [place], [address]. tel:[phone] [facility], [facility], [place], [place], [id number], [place] tel:[phone] [place] OV (chief complaint) Weakness of both legs 1 Fili Alvarez. [address], [place], [address], [place]. tel:[phone] [facility], [facility], [place], [place], [id number], [place] tel:[phone] [place] No Information 1 Angel Patterson. [address] [facility] [place], [id number], [place]. tel:[phone] [facility], [address], [place], [place], [id number], [place] tel:[phone] [place] No Information 1 Angel Patterson. [address] [place] [address], [id number], . tel:[phone] [facility], [address] [facility] [address], [place], [place], [id number], [place] tel:[phone] [place] OV (chief complaint) Multiple fallsWeakness 1 Farb Antonio. [address], [place], [address], [place]. tel:[phone] [facility], [address], [place], [place], [id number], [place] tel:[phone] [place] OV (chief complaint) Multiple fallsClosed fracture of multiple ribs of right side, initial encounterType 2 diabetes mellitus with diabetic polyneuropathy, without long-term current use of insulinInsomnia, unspecified typeHypotension, unspecified hypotension type Jun- 1 Farb Antonio. [address], [place], [address], [place]. tel:[phone] [facility], [address] [facility], [place], [place], [id number], [place] tel:[phone] [place] No Information 1 Farb Antonio. [address], [place], [address], [place]. tel:[phone] [facility], [address] [facility], [place], [place], [id number], [place] tel:[phone] [place] No Information 1 Farb Antonio. [address] [place], [address], [place]. tel:[phone] [facility], [address], [place], [place], [id number], [place] tel:[phone] [place] FUV (chief complaint) Laceration without foreign body, right foot, subsequent encounter 1 Farb Antonio. [address], [place], [address], [place]. tel:[phone] [facility], [address], [place], [place], [id number], [place] tel:[phone] [place] ov (chief complaint) Pressure ulcer of dorsum of left foot, stage 3 1 Farb Antonio. [address], [place], [address], [place]. tel:[phone] [facility], [address] [facility] [address], [place], [place], [id number], [place] tel:[phone] [place] OV (chief complaint) Friction blisterType 2 diabetes mellitus with diabetic polyneuropathy, unspecified whether custodial insulin use 1 Bashista Jose Martinleena. [address] [place], [id number], [place]. tel:[phone] [facility], [address] [facility] [address], [place], [place], [id number], [place] tel:[phone] [place] Other abnormalities of gait and mobilityOther chronic pain 1 Shanelle Rolan. [address] [place], [address]. tel:[phone] [facility], [address] [facility] [address], [place], [place], [id number], [place] tel:[phone] [place] Other chronic pain 1 Theroux Christina. [address] [place], [address]. tel:[phone] [facility], [address] [facility] [address], [place], [place], [address], [place] tel:[phone] [place] Right ureteral stoneBenign prostatic hyperplasia with weak urinary streamPoor urinary stream 1 Fili Alvarez. [address] [facility] [place], [address], [place]. tel:[phone] [facility], [address] [facility], [place], [place], [id number], [place] tel:[phone] [place] Post Op (chief complaint) History of kidney stonesType 2 diabetes mellitus with stage 2 chronic kidney disease, without long-term current use of insulinChronic kidney disease, stage 2 (mild) 1 Fili Alvarez. [address] [place], [address], [place]. tel:[phone] [facility], [facility], [place], [place], [id number], [place] tel:[phone] [place] Other chronic pain 1 Shanelle Gongora. [address] [place], [address]. tel:[phone] [facility], [address] [facility] [address], [place], [place], [id number], [place] tel:[phone] [place] Other chronic painMu scle weakness (generalized)Other lack of coordination 1 Shiva Evans. [address] [place], [id number]. tel:[phone] [facility], [facility], [place], [place], [id number], [place] tel:[phone] [place] Other chronic pain 1 Shanelle Gongora. [address] [place], [address]. tel:[phone] [facility], [address] [facility] [address], [place], [place], [id number], [place] tel:[phone] [place] Other chronic painOt her lack of coordination 1 Shiva Evans. [address] [place], [id number]. tel:[phone] [facility], [address] [facility] [address], [place], [place], [id number], [place] tel:[phone] [place] DINORAH (chief complaint) Hypertensive chronic kidney disease with stage 1 through stage 4 chronic kidney disease, or unspecified chronic kidney diseaseCardiomyopathy, unspecified typeBradycardiaHyperlipi demia, unspecified hyperlipidemia typeType 2 diabetes mellitus with diabetic polyneuropathy, without long-term current use of insulinDiabetes mellitus with proteinuriaProteinuria, unspecifiedType 2 diabetes mellitus with diabetic cataract, without long-term current use of insulinLong term (current) use of oral hypoglycemic drugsHypogonadotropic hypogonadismHistory of hepatitis CAbnormal finding on imaging of liverHistory of hernia repairPersonal history of other diseases of the digestive systemRight ureteral stoneMicroscopic haematuriaBenign prostatic hyperplasia with lower urinary tract symptoms, symptom details unspecifiedAnemia, unspecified typeGAD (generalized anxiety disorder)Major depressive disorder, recurrent, moderateCannabis abuse, uncomplicatedOpioid dependence on agonist therapyNontraumatic incomplete tear of rotator cuff, unspecified lateralityChronic migraine without aura, intractable, without status migrainosusMCI (mild cognitive impairment)Chronic pain syndromeModerate obstructive sleep apneaOpioid dependence, in remissionType 2 diabetes mellitus with stage 2 chronic kidney disease, without long-term current use of insulinChronic kidney disease, stage 2 (mild) 1 [place]ili [place], [address], [place]. tel:[phone] [facility], [address] [facility] [address], [place], [place], [id number], [place] tel:[phone] [place] Other abnormalities of gait and mobilityOther chronic painMuscle weakness (generalized) 1 Shiva Evans. [address], [place], [place], [id number]. tel:[phone] [facility], [address] [facility], [place], [place], [id number], [place] tel:[phone] [place] Other chronic pain 1 Shanelle Rolan. [address] [place], [address]. tel:[phone] [facility], [address], [place], [place], [id number], [place] tel:[phone] [place] No Information 1 Fareva Antonio. [address] [place], [address], [place]. tel:[phone] [facility], [address] [facility], [place], [place], [id number], [place] tel:[phone] [place] Other chronic painEncounter for rehabilitation evaluation 1 Shanelle Rolan. [address] [place], [address]. tel:[phone] [facility], [address], [place], [place], [id number], [place] tel:[phone] [place] Encounter for rehabilitation evaluationPrimary generalized (osteo)arthritisMuscle weakness (generalized) 1 Shiva Evans. [address] [place], [id number]. tel:[phone] [facility], [address] [facility] [address], [place], [place], [address], [place] tel:[phone] [place] ov (chief complaint) Calculus of ureterRight inguinal painWeakness of both legs 1 Farb Antonio. [address] [place], [address], [place]. tel:[phone] [facility], [address] [facility] [address], [place], [place], [id number], [place] tel:[phone] [place] No Information 1 Angel Patterson. [address] [facility] [place], [id number], [place]. tel:[phone] [facility], [address], [place], [place], [address], [place] tel:[phone] [place] Adhesive capsulitis of left shoulder 1 Farb Antonio. [address] [place], [address], [place]. tel:[phone] [facility], [address], [place], [place], [id number], [place] tel:[phone] [place] OV (chief complaint) Pain of both shoulder jointsPain in left shoulderOpioid dependence on agonist therapyArthralgia of shoulder, unspecified laterality 1 Farb Antonio. [address] [place], [address], [place]. tel:[phone] [facility], [address], [place], [place], [address], [place] tel:[phone] [place] No Information 1 Angelna Patterson. [address] [place], [place], [address], [place]. tel:[phone] [facility], [address], [place], [place], [id number], [place] tel:[phone] [place] Asymptomatic PVCs 1 Agnelna Patterson. [address] [place], [place], [id number], [place]. tel:[phone] [facility], [address], [place], [place], [id number], [place] tel:[phone] [place] Pain in unspecified knee 1 Farb Antonio. [address] [place], [address], [place]. tel:[phone] [facility], [address], [place], [place], [id number], [place] tel:[phone] [place] OV (chief complaint) Exposure to COVID-19 virusAbdominal pain, unspecified abdominal locationPrimary osteoarthritis, unspecified site 0 Fili Antonio. [address], [place], [address], [place]. tel:[phone] [facility], [address] [facility] [address] [facility], [place], [place], [id number], [place] tel:[phone] [place] No Information 0 Karolina Mathews. [address] [place], [address]. tel:[phone] [facility], [address] [facility], [place], [place], [id number], [place] tel:[phone] [place] Inguinodynia, right 0 Angel Patterson. 101 [facility] [place] [place], [id number], [place]. tel:[phone] [facility], [address] [facility] [address], [place], [place], [id number], [place] tel:[phone] [place] Other chronic painPrimary generalized (osteo)arthritis 0 Shiva Evans. [address] [place], [id number]. tel:[phone] [facility], [address], [place], [place], [id number], [place] tel:[phone] [place] Chronic low back leena n without sciatica, unspecified back pain lateralityOther chronic pain Jun- 0 Angelna Bonen. [address] [facility] [place] [place], [id number], [place]. tel:[phone] [facility], [address], [place], [place], [id number], [place] tel:[phone] [place] Other chronic painMu scle weakness (generalized) May-2 0 Shiva Evans. [address] [place], [place], [id number]. tel:[phone] [facility], [address], [id number], [place] tel:[phone] [place] No Information Sep-1 0 Angel Patterson. [address] [place], [place], [id number], [place]. tel:[phone] [facility], [address], [id number], [place] tel:[phone] [place] Other chronic painMu scle weakness (generalized) Sep-1 0 Shiva Evans. [address] [place], [place], [id number]. tel:[phone] [facility], [address], [id number], [place] tel:[phone] [place] FUV (chief complaint) Diabetes mellitus with proteinuriaProteinuria, unspecifiedMCI (mild cognitive impairment)Abnormal finding on imaging of liverHistory of hernia repairPersonal history of other diseases of the digestive systemBenign prostatic hyperplasia with post-void dribblingPost-void dribbling Sep-1 0 Angel Patterson. [address] [place], [place], [id number], [place]. tel:[phone] [facility], [address], [id number], [place] tel:[phone] [place] No Information Sep-1 0 Angel Leonardo. [address] [place], [place], [id number], [place]. tel:[phone] [facility], [address], [id number], [place] tel:[phone] [place] Other chronic painPa in in joint of right shoulder Sep-0 0 Shiva Evans. [address], [place], [id number]. tel:[phone] [facility], [address] [facility] [facility], [place], [place], [id number], [place] tel:[phone] [place] Other chronic painMu scle weakness (generalized) 0 Sharrijaqueline Rox Evans. [address], [place], [id number]. tel:[phone] [facility], [address] [facility] [address], [place], [place], [id number], [place] tel:[phone] [place] History of hernia repairPersonal history of other diseases of the digestive system 0 Sharrijaqueline Rox Monet. [address], [place], [id number]. tel:[phone] [facility], [address] [facility] [address] [facility], [place], [place], [id number], [place] tel:[phone] [place] Other lack of coordinationOther chronic pain 0 Angel Patterson. [address] [facility] [place], [id number], [place]. tel:[phone] [facility], [address] [facility] [address] [place] [address], [id number], [place] tel:[phone] [place] Other lack of coordinationOther chronic pain 0 Sharrijaqueline Rox Monet. [address], [place], [id number]. tel:[phone] [facility], [address] [place] [address], [id number], [place] tel:[phone] [place] No Information 0 Angel Patterson. [address] [facility] [place], [id number], [place]. tel:[phone] [facility], [address], [place], [place], [id number], [place] tel:[phone] [place] Other chronic painMu scle weakness (generalized) 0 Puffer Rox Curry Beth. [address], [place], [id number]. tel:[phone] [facility], [address] [facility], [place], [place], [id number], [place] tel:[phone] [place] No Information 0 Angel Leonardo. [address] [place], [id number], [place]. tel:[phone] [facility], [address] [facility] [facility], [place], [place], [id number], [place] tel:[phone] [place] Other chronic pain 0 Puffer Rox Curry Beth. [address], [place], [id number]. tel:[phone] [facility], [address] [facility] [facility], [place], [place], [id number], [place] tel:[phone] [place] Pain of both shoulde r jointsPain in left shoulderMuscle weakness (generalized) 0 Puffer Rox Curry Beth. [address], [place], [id number]. tel:[phone] [facility], [address] [facility] [facility], [place], [place], [id number], [place] tel:[phone] [place] Other chronic pain 0 Theroux Christina. [address] [place], [address]. tel:[phone] [facility], [address] [facility] [address] [facility], [place], [place], [id number], [place] tel:[phone] [place] Other chronic pain 0 Theroux Christina. [address] [place], [address]. tel:[phone] [facility], [address] [facility] [address] [facility], [place], [place], [id number], [place] tel:[phone] [place] Diabetes mellitus wi th proteinuria 0 Angel Leonardo. 101 [facility] [place], [id number], [place]. tel:[phone] [facility], [address] [facility] [address] [facility], [place], [place], [id number], [place] tel:[phone] [place] Other chronic pain 0 Theroux Christina. [address], [place], [address]. tel:[phone] [facility], [address] [facility] [address] [facility], [place], [place], [id number], [place] tel:[phone] [place] Encounter for rehabilitation evaluationMuscle weakness (generalized) 0 Theroux Christina. [address], [place], [address]. tel:[phone] [facility], [address] [facility], [place], [place], [id number], [place] tel:[phone] [place] PHV (chief complaint) Acute pain of right shoulderHistory of hernia repairHistory of hepatitis CControlled type 2 diabetes mellitus with diabetic polyneuropathy, without long-term current use of insulinConstipation, unspecified constipation type 0 Angel Leonardo. 101 [facility] [place], [id number], [place]. tel:[phone] [facility], [address] [facility], [place], [place], [id number], [place] tel:[phone] [place] Encounter for rehabilitation evaluation 0 Shiva Evans. [address], [id number]. tel:[phone] [facility], [address] [facility] [address], [place], [place], [id number], [place] tel:[phone] [place] DINORAH (chief complaint)H PI Con't (chief complaint)E xam (chief complaint)A dditional info (chief complaint) Bilateral recurrent inguinal hernia without obstruction or gangreneAsymptomatic microscopic hematuriaEssential hypertensionCardiomyopat hy, unspecified typeBradycardiaPure hypercholesterolemiaLong term (current) use of oral hypoglycemic drugsType 2 diabetes mellitus with diabetic neuropathy, without long-term current use of insulinDiabetes mellitus with proteinuriaProteinuria, unspecifiedType 2 diabetes mellitus with diabetic cataract, without long-term current use of insulinHypogonadotropic hypogonadismVitamin D deficiencyEdentulousComb ined forms of age-related cataract, bilateralAbnormal finding on imaging of liverSteatosis of liverUrgency incontinenceBenign prostatic hyperplasia with nocturiaNocturiaErectile dysfunction due to diseases classified elsewhereAnemia, unspecified typeHistory of hepatitis CGAD (generalized anxiety disorder)Major depressive disorder, recurrent, moderateCannabis abuse, uncomplicatedOpioid dependence on agonist therapyIncomplete tear of right rotator cuff, unspecified whether traumaticPrimary osteoarthritis involving multiple jointsMigraine without status migrainosus, not intractable, unspecified migraine typeMCI (mild cognitive impairment)SpondylosisOt her chronic painChronic obstructive pulmonary disease, unspecified COPD typeModerate obstructive sleep apneaConstipation, unspecified constipation typeCallosityEncounter for health maintenance examination 0 Angel Patterson. [address] [place] [address], [id number], [place]. tel:[phone] [facility], [address] [facility] [facility], [place], [place], [id number], [place] tel:[phone] [place] No Information 0 Angel Patterson. [address] [place], [place], [id number], [place]. tel:[phone] [facility], [address] [facility] [address], [place], [place], [id number], [place] tel:[phone] [place] Right groin lesion (chief complaint) Folliculitis Mar-0 0 Angel Leonardo. [address] [place], [place], [id number], [place]. tel:[phone] [facility], [address], [place], [place], [id number], [place] tel:[phone] [place] Type 2 diabetes ale itus with other circulatory complications Fe-2 0 Angel Leonardo. [address] [place], [place], [id number], [place]. tel:[phone] [facility], [address] [facility], [place], [place], [id number], [place] tel:[phone] [place] Pain in right hip Oct- 0 Angel Leonardo. [address] [place], [place], [id number], [place]. tel:[phone] [facility], [address], [place], [place], [id number], [place] tel:[phone] [place] Office Visit (chief complaint) Abrasion, left knee, subsequent encounterFall on same level from slipping, tripping or stumbling, subsequent encounter Feb-2 0 Angel Leonardo. [address] [place], [place], [id number], [place]. tel:[phone] [facility], [address], [place], [place], [id number], [place] tel:[phone] [place] Type 2 diabetes ale itus with other circulatory complications b- 0 Angel Leonardo. [address] [place], [place], [id number], [place]. tel:[phone] [facility], [address], [place], [place], [id number], [place] tel:[phone] [place] Encounter for health check Oct- 0 Angel Leonardo. [address] [place], [place], [id number], . tel:[phone] [facility], [address], [id number], [place] tel:[phone] [place] PHV (chief complaint) BradycardiaType 2 diabetes mellitus with other circulatory complicationsSubclinical hypothyroidismProstatic hypertrophyBenign prostatic hyperplasia with lower urinary tract sympMale erectile disorder 0 Angel Leonardo. [address] [place], [place], [id number], [place]. tel:[phone] [facility], [address], [id number], [place] tel:[phone] [place] Bilateral recurrent inguinal hernia without obstruction or gangrene 0 0 Angel Leonardo. [address] [place] [address], [id number], [place]. tel:[phone] [facility], [address], [id number], [place] tel:[phone] [place] Pre Op (chief complaint) Bilateral recurrent inguinal hernia without obstruction or gangreneHepatitis C virus infection without hepatic coma, unspecified chronicityMCI (mild cognitive impairment)Spondylosis 0 Angel Leonardo. [address] [place] [address], [id number], . tel:[phone] [facility], [address], [id number], [place] tel:[phone] [place] Biannual (chief complaint)A dditional details (chief complaint) Essential hypertensionCardiomyopat hy, unspecified typeHyperlipidemia, unspecified hyperlipidemia typeType 2 diabetes mellitus with other circulatory complicationsType 2 diabetes mellitus with diabetic neuropathy, without long-term current use of insulinType 2 diabetes mellitus with diabetic cataract, without long-term current use of insulinSubclinical hypothyroidismHypogonado tropic hypogonadismVitamin D deficiencyComplete edentulism, unspecified edentulism classChronic hepatitis C without hepatic comaSteatosis of liverBilateral recurrent inguinal hernia without obstruction or gangreneMicroscopic haematuriaProstatic hypertrophyErectile dysfunction due to diseases classified elsewhereAnemia, unspecified typeGAD (generalized anxiety disorder)Major depressive disorder, recurrent, moderateMigraine without aura and without status migrainosus, not intractableMCI (mild cognitive impairment)Primary osteoarthritis involving multiple jointsOther chronic painChronic obstructive pulmonary disease, unspecified COPD typeModerate obstructive sleep apneaCallosityOpioid dependence on agonist therapyEncounter for health check 9 Angelna Patterson. [address] [place], [place], [id number], [place]. tel:[phone] [facility], [address] [facility] [address] [place] [address], [id number], [place] tel:[phone] [place] Bilateral recurrent inguinal hernia without obstruction or gangrene 9 Angelna Patterson. [address] [place], [place], [id number], [place]. tel:[phone] [facility], [address] [place] [address], [id number], [place] tel:[phone] [facility] Hypertension, unspecified typeCardiomyopathy, unspecified typeHyperlipidemia, unspecified hyperlipidemia typeType 2 diabetes mellitus with diabetic neuropathy, without long-term current use of insulinDisorder of thyroidType 2 diabetes mellitus with diabetic cataract, without long-term current use of insulinType 2 diabetes mellitus with other circulatory complicationsErectile dysfunction, unspecified erectile dysfunction typeMajor depressive disorder, recurrent, moderateMigraine without status migrainosus, not intractable, unspecified migraine typeChronic obstructive pulmonary disease, unspecified COPD typeHypopituitarism 9 Tello Elaine. [address] [place], [address], [place]. tel:[phone] [facility], [address] [facility] [address] [place] [address], [id number], [place] tel:[phone] [place] Headache- (chief complaint) Lower abdominal painObstructive sleep apneaOpioid dependence in remissionHeadache disorder 9 Angel Bonen. [address] [place], [place], [id number], [place]. tel:[phone] [facility], [address] [facility], [place], [place], [id number], [place] tel:[phone] [place] PHV (chief complaint) Lower abdominal pain, unspecifiedType 2 diabetes mellitus with other specified complication 9 Angel Leonardo. [address] [place], [place], [id number], [place]. tel:[phone] [facility], [address] [facility] [facility], [place], [place], [id number], [place] tel:[phone] [place] Abdominal Pain- (chief complaint) Lower abdominal pain, unspecified 9 Angelna Bonen. [address] [place], [place], [id number], [place]. tel:[phone] [facility], [address] [facility] [address] [facility], [place], [place], [id number], [place] tel:[phone] [place] No Information 9 Shiva Gramajo Antoinette Evans. [address] [place], [place], [id number]. tel:[phone] [facility], [address] [facility] [address], [place], [place], [id number], [place] tel:[phone] [place] PHV (chief complaint) Lower abdominal pain, unspecifiedLiver disease, unspecifiedHematuria, unspecifiedOther specified diabetes mellitus with diabetic neuropathy, unspecified 9 Angelna Bonen. [address] [place], [place], [id number], [place]. tel:[phone] [facility], [address] [facility], [place], [place], [id number], [place] tel:[phone] [place] Other specified diab etes mellitus with diabetic neuropathy, unspecified 9 Karolina Mathews. 101 [facility] [place], [address]. tel:[phone] [facility], [address], [id number], [place] tel:[phone] [place] Annual (chief complaint)C hronic Conditions (chief complaint) Corns and callositiesMale erectile disorderMigraine, unspecified, not intractable, without status migrainosusOther spondylosis, site unspecifiedChronic obstructive pulmonary disease, unspecifiedUnspecified mental disorder due to known physiological conditionUnspecified age-related cataractUnspecified osteoarthritis, unspecified siteComplete loss of teeth, unspecified cause, unspecified classCardiomyopathy, unspecifiedAnemia, unspecifiedEssential (primary) hypertensionHyperlipidem ia, unspecifiedLiver disease, unspecifiedType 2 diabetes mellitus with other specified complicationOther specified diabetes mellitus with diabetic neuropathy, unspecifiedOther specified abnormal findings of blood chemistryAbnormal results of thyroid function studiesUnspecified viral hepatitis C without hepatic comaOther chronic painAnxiety disorder, unspecifiedEncounter for general adult medical exam w abnormal findingsMajor depressive disorder, recurrent, moderateLower abdominal pain, unspecified 9 Angel Patterson. 101 [facility] [place], [id number], [place]. tel:[phone] [facility], [address], [id number], [place] tel:[phone] [place] Type 2 diabetes ale itus with other specified complication 9 Angel Bonen. 101 [facility] [place], [id number], [place]. tel:[phone] [facility], [address], [id number], [place] tel:[phone] [place] PHV (chief complaint) Nephrolithiasis 9 Angel Patterson. 101 [facility] Hospital[facility]her[facility] [place] [place], [id number], [place]. tel:[phone] [facility], [address], [place], [place], [id number], [place] tel:[phone] [place] Anemia, unspecified Dec- 9 Angel Leonardo. [address] [place], [place], [id number], [place]. tel:[phone] [facility], [address], [place], [place], [id number], [place] tel:[phone] [place] Other chronic painBe nign prostatic hyperplasia with lower urinary tract symptomsHematuria, unspecified Dec- 9 Angel Leonardo. [address] [place], [place], [id number], [place]. tel:[phone] [facility], [address] [facility] [facility], [place], [place], [id number], [place] tel:[phone] [place] Type 2 diabetes ale itus with other specified complication Dec- 9 Angel Leonardo. [address] [place], [place], [id number], [place]. tel:[phone] [facility], [address], [place], [place], [id number], [place] tel:[phone] [place] Follow Up of 3 month (chief complaint) Benign prostatic hyperplasia with lower urinary tract symptomsChronic anal fissureOther spondylosis, site unspecifiedRight lower quadrant painType 2 diabetes mellitus with other specified complicationCallosities Dec-0 9 Angel Leonardo. [address] [place], [place], [id number], [place]. tel:[phone] [facility], [address], [place], [place], [id number], [place] tel:[phone] [place] blood sugars (chief complaint) Type 2 diabetes mellitus with other specified complication Nov-0 9 Angel Leonardo. [address] [place], [place], [id number], [place]. tel:[phone] [facility], [address] [facility] [address] [facility], [place], [place], [id number], [place] tel:[phone] [place] Opioid dependence, i n remission 9 Shanelle Rolan. [address] [place], [address]. tel:[phone] [facility], [address] [facility] [facility], [place], [place], [id number], [place] tel:[phone] [place] Semi-Annual (chief complaint) Type 2 diabetes mellitus with other specified complicationBenign prostatic hyperplasia with lower urinary tract symptomsHypogonadotropic hypogonadismOpioid dependence, in remissionOther spondylosis, site unspecifiedHyperlipidemi a, unspecifiedAnemia, unspecifiedAnxiety disorder, unspecifiedObstructive sleep apnea (adult) (pediatric)Unspecified mental disorder due to known physiological conditionComplete loss of teeth, unspecified cause, unspecified classAbnormal results of thyroid function studiesLiver disease, unspecifiedVitamin D deficiency, unspecifiedCardiomyopath y, unspecifiedChronic obstructive pulmonary disease, unspecifiedEssential (primary) hypertensionEncounter for general adult medical exam w abnormal findings 9 Angel Patterson. [address] [facility] [place], [id number], [place]. tel:[phone] [facility], [address] [facility] [facility], [place], [place], [id number], [place] tel:[phone] [place] Post ER visit (chief complaint) Pain in left handType 2 diabetes mellitus with other specified complicationSleep related leg cramps 8 Angel Patterson. [address] [facility] [place], [id number], [place]. tel:[phone] [facility], [address] [facility] [address], [place], [place], [id number], [place] tel:[phone] [place] Type 2 diabetes ale itus with other specified complication 8 Angel Patterson. [address] [place], [place], [id number], [place]. tel:[phone] [facility], [address] [facility] [facility] [address] [place] [address], [id number], [place] tel:[phone] [place] Multiple concerns (chief complaint) Proctalgia fugaxBenign prostatic hyperplasia with lower urinary tract symptomsType 2 diabetes mellitus with other specified complicationOpioid dependence, in remissionHypogonadotropi c hypogonadism May- 8 Angel Leonardo. 101 [facility] [place], [id number], [place]. tel:[phone] [facility], [address] [facility] [facility], [place], [place], [id number], [place] tel:[phone] [place] Proctalgia fugaxOthe r spondylosis, site unspecifiedCorns and callositiesOther chronic pain May- 8 Angel Leonardo. 101 [facility] [place], [id number], [place]. tel:[phone] [facility], [address] [facility] [facility] [address] [place] [address], [id number], [place] tel:[phone] [place] Cervicalgia 8 Angel Leonardo. 101 [facility] [place], [id number], [place]. tel:[phone] [facility], [address] [facility] [facility], [place], [place], [id number], [place] tel:[phone] [place] Benign prostatic hyperplasia with lower urinary tract symptoms 8 Angel Leonardo. 101 [facility] [place], [id number], [place]. tel:[phone] [facility], [address] [facility] [address] [place] [address], [id number], [place] tel:[phone] [place] Cervicalgia 8 Shanelle Rolan. 101 [facility] [place], [address]. tel:[phone] [facility], [address] [facility] [facility] [place] [address], [id number], [place] tel:[phone] [place] Post fall (chief complaint)Abram cunninghame Assessment (chief complaint) Other chronic pain 8 Clint Mancia. [address] [place], [address]. tel:[phone] [facility], [address], [id number], [place] tel:[phone] [place] neck and back pain (chief complaint) CervicalgiaOther chronic pain 8 Angel Patterson. [address] [place], [place], [id number], [place]. tel:[phone] [facility], [address], [id number], [place] tel:[phone] [place] Nurse Assessment (chief complaint) Anemia, unspecifiedHyperlipidemi a, unspecifiedType 2 diabetes mellitus with other specified complicationBenign prostatic hyperplasia with lower urinary tract symptoms 8 Angel Patterson. [address] [place], [place], [id number], [place]. tel:[phone] [facility], [address], [id number], [place] tel:[phone] [place] diabetes (chief complaint) Type 2 diabetes mellitus with other specified complication 8 Karolina Mathews. [address] [place], [address]. tel:[phone] [facility], [address], [id number], [place] tel:[phone] [place] PEE (chief complaint) Opioid dependence, in remissionType 2 diabetes mellitus with other specified complicationAbnormal results of thyroid function studiesAnxiety disorder, unspecifiedOther spondylosis, site unspecifiedOther chronic painLiver disease, unspecifiedVitamin D deficiency, unspecifiedBenign prostatic hyperplasia with lower urinary tract symptomsChronic obstructive pulmonary disease, unspecifiedAnemia, unspecifiedCardiomyopath y, unspecifiedHyperlipidemi a, unspecifiedEssential (primary) hypertensionObstructive sleep apnea (adult) (pediatric)Other specified abnormal findings of blood chemistryComplete loss of teeth, unspecified cause, unspecified classUnspecified mental disorder due to known physiological conditionEncounter for general adult medical exam w abnormal findingsMajor depressive disorder, recurrent, moderate 8 Angelna Patterson. [address] [place] [address], [id number], . tel:[phone] [facility], [address], [id number], [place] tel:[phone] [place] Type 2 diabetes ale itus with other specified complicationAbnormal results of thyroid function studiesOther specified abnormal findings of blood chemistryAnxiety disorder, unspecified 8 Angel Patterson. [address] [place] [address], [id number], [place]. tel:[phone] [facility], [address], [id number], [place] tel:[phone] [place] No Information 8 Angelna Patterson. [address] [place] [address], [id number], [place]. tel:[phone] [facility], 1 [facility] [place], [place], [id number], [place] tel:[phone] [place] Intake (chief complaint) Encntr for general adult medical exam w/o abnormal findingsEncounter for screening for respiratory tuberculosis 8 Angel Patterson. [address] [place] [address], [id number], [place]. tel:[phone] Family History Family Member Type Diagnosis Age At Onset Problem (finding) Family history of alcoh olism Father Problem (finding) stroke Mother Problem (finding) alzheimer's disease Mother Problem (finding) Immunizations Vaccine Date Status Comments COVID-19 Moderna administered Source: Oth er Registry COVID-19 (Moderna) administered Source: N ew Immunization Record Flu-IIV4, p-free administered Source: Oth er Registry Tdap administered Source: New Imm unization Record COVID-19 Moderna administered Source: Oth er Registry COVID-19 Moderna administered Source: Oth er Registry Flublok administered Note: admi nistered at [facility], documentation provided by ppt ; Source: New Immunization Record Zoster recombinant subunit administered S ource: New Immunization Record Tdap administered Source: New Imm unization Record Zoster recombinant subunit administered N ote: states received at [facility], verified by phone ; Source: Other Provider Influenza, recombinant, injectable, quadrivalent, preservative free Flublok Quad administered Note: ADMINISTERED A T [facility] PER PPT ; Source: New Immunization Record Pneumococcal polysaccharide PPV23 administered Note: PPV 23 ; Sourc e: Other Provider Hep A (adult) administered Source: Other Provider Hep A (adult) administered Source: Other Provider Tdap administered Source: Other P rovider Payers Payer name Insurance type Covered alliance party ID Authoriza tipatricia(s) [employer] 16 [id number] [employer] 16 [id number] [employer] 16 [id number] [employer] 16 [id number] [employer] 16 [id number] [employer] 16 [id number] [employer] 16 [id number] Social History Type Description Quantity Date Captured Comments Sex Male Smoking Status No Information Chief Complaint And Reason For Visit No Information Plan Of Treatment Date Type Action Status Referral Ordered: Dermatology (related to Skin tag) ordered Referral Ordered: Referrals: Dermatology ordered Referral Ordered: Psychiatry (related to Major depressive disorder, recurrent, moderate) ordered Referral Ordered: Referrals: Psychiatry. Consult ordered Referral Ordered: Referrals: Podiatry ordered Referral Ordered: Referrals: Endocrinology, Diabetes and Metabolism ordered Referral Ordered: Referrals: Neurology. Diagnostic testing ordered Referral Ordered: US EXAM PELVIC COMPLETE ordered Referral Ordered: US EXAM ABDOM COMPLETE ordered Referral Ordered: Referrals: Urology Appointment date/timeframe: 07/18/2021 ordered Referral Referred To: Physical Therapy Ordered: Referrals: Referrals: Physical Therapy. Evaluate and treat Physical Therapy. Evaluate and treat ordered Referral Referred To: Physical Therapy Ordered: Referrals: Physical Therapy. Evaluate and treat ordered Referral Ordered: X-RAY EXAM OF SHOULDERS Bilateral Appointment date/timeframe: 11/14/2020 ordered Referral Ordered: ECHO EXAM OF THE HEART ordered Referral Referred To: [facility] Ordered: Referrals: Orthopedic Surgery. [facility]. Follow-up and treat Appointment date/timeframe: 10/26/2020 ordered Referral Ordered: CT ABDOMEN W/DYE ordered Referral Ordered: CT THORAX W/DYE ordered Referral Ordered: Referrals: Urology. Consult Appointment date/timeframe: 09/12/2020 ordered Referral Ordered: Referrals: General Surgery Appointment date/timeframe: 11/27/2020 ordered Referral Referred To: [facility] Ordered: [facility]. Evaluate and treat Appointment date/timeframe: 04/17/2020 ordered Referral Referred To: Occupational Therapy Ordered: Referrals: Occupational Therapy. Evaluate and treat ordered Referral Ordered: Referrals: Dentistry. Follow-up and Treat Appointment date/timeframe: 04/26/2020 ordered Referral Ordered: Referrals: Gastroenterology. Follow-up and Treat Appointment date/timeframe: 06/07/2020 ordered Referral Referred To: Dr Cintron Ordered: Referrals: Urology. Dr Cintron. Evaluate and treat Appointment date/timeframe: 11/28/2020 ordered Referral Ordered: ECG MONIT/REPRT UP TO 48 HRS ordered Referral Referred To: Dr Vitale ([facility]) Ordered: Referrals: Cardiology. Dr Vitale ([facility]). Follow-up and Treat ordered Referral Referred To: Dr Ho Ordered: Referrals: General Surgery. Dr Ho. Surgery Appointment date/timeframe: 03/13/2020 ordered Referral Referred To: Dr Ernestine Cheung Ordered: Referrals: Infectious Disease. Dr Ernestine Cheung. Consult ordered Referral Ordered: Referrals: Endocrinology, Diabetes and Metabolism. Follow-up and Treat ordered Referral Ordered: Referrals: Ophthalmology. Follow-up and Treat ordered Referral Referred To: Dr Ho Ordered: Referrals: General Surgery. Dr Ho. Follow-up and Treat Appointment date/timeframe: 09/06/2019 ordered Referral Ordered: MRI LUMBAR SPINE W/O DYE Appointment date/timeframe: 10/14/2019 ordered Referral Ordered: US Abdominal, single quadrant Appointment date/timeframe: 06/30/2019 ordered Referral Referred To: Dr Culp or Dr Ho/[facility] General surgery Ordered: Referrals: General Surgery. Dr Culp or Dr Ho/[facility] General surgery. Consult Appointment date/timeframe: 07/05/2019 ordered Referral Referred To: Dr Mckeon/[place] [facility] Ordered: Referrals: Nephrology. Dr Mckeon/[place] [facility]. Consult ordered [facility]: [facility] Ordered: Referrals: Gastroenterology. [facility]. Consult. Diagnostic testing Appointment date/timeframe: 03/03/2019 ordered Referral Referred To: [facility] Ordered: Referrals: Pain Medicine. [facility]. Evaluate and treat Appointment date/timeframe: 03/17/2019 ordered Referral Ordered: Referrals: Urology. Diagnostic testing Appointment date/timeframe: 01/25/2019 ordered Referral Ordered: CT ABD & PELV W/CONTRAST ordered Referral Referred [facility]: [facility] Ordered: Referrals: Colon and Rectal Surgery. [facility]. Consult Appointment date/timeframe: 01/03/2019 ordered Referral Ordered: Referrals: Urology. Follow-up and Treat ordered Referral Referred To: [facility] Ordered: Referrals: Physical Medicine and Rehabilitation. [facility]. Consult ordered Referral Referred To: Methadone program Ordered: Referrals: Psychiatry. Methadone program. Follow-up and Treat ordered Referral Referred To: Dr Altamirano Ordered: Referrals: Ophthalmology. Dr Altamirano. Consult Appointment date/timeframe: 10/06/2018 ordered Referral Referred To: Dr Vazquez Ordered: Referrals: Ophthalmology. Dr Vazquez. Evaluate and treat Appointment date/timeframe: 10/06/2018 ordered Referral Ordered: X-RAY EXAM OF WRIST Appointment date/timeframe: 09/17/2018 ordered Referral Referred To: [facility] podiatry Ordered: Referrals: Podiatry. [facility] podiatry. Consult Appointment date/timeframe: 06/22/2018 ordered Referral Ordered: Referrals: Orthopedic Surgery. Follow-up and Treat Appointment date/timeframe: 07/02/2018 ordered Referral Referred To: Dr Qian Morris-[facility] colorectal surg Ordered: Referrals: General Surgery. Dr Qian Morris-[facility] colorectal surg. Consult Appointment date/timeframe: 07/27/2018 ordered Referral Referred To: Dr Kurt Sawant Ordered: Referrals: Urology. Dr Kurt Sawant. Follow-up and Treat Appointment date/timeframe: 05/11/2018 ordered Referral Referred To: Physical Therapy Ordered: Referrals: Physical Therapy. Consult ordered Referral Ordered: Referrals: Podiatry. Evaluate and treat ordered Referral Referred To: [facility] Ordered: Referrals: Non-Medical Services. [facility]. Evaluate and treat ordered Referral Referred To: Dr. Benjamin ([facility]) Ordered: Referrals: Endocrinology, Diabetes and Metabolism. Dr. Benjamin ([facility]). Follow-up and Treat Appointment date/timeframe: 08/11/2018 ordered Referral Ordered: Referrals: Clinical Psychology. Follow-up and Treat Appointment date/timeframe: 04/08/2018 ordered Referral Ordered: Referrals: Psychiatry. Follow-up and Treat ordered Future Order: Lab Order URINALYS IS, COMPLETE ([id number]), Ordered on: Ordered Future Order: Lab Order Drug Mon jenring, Panel 8 with Confirmation, Urine ([id number]), Ordered on: Ordered History Of Present Illness Encounter Date Complaint History Of Prese nt Illness PHV Comments: PPT se en today in collaboration with Shilpi Headley for PHV, to discuss grievances cited in hospital d/c summary as well as review current diagnoses ppt had questions about. Shilpi participated in conversation as well as scribed.I agree with her visit ozzie. Em Headley APN note PPT seen toda y in collaboration with Shannan Pennington APN for PHV and to discuss grievances cited in hospital d/c summary. This provider was available via TEAMS for scribing and ancillary historian to support the physical exam and visit performed by Jill Pennington APN.RE ED visit: PPT was seen in ED at [facility] 05/07/22. ED summary states PPT was citing multiple complaints including body aches and frustrations about difficulty not getting to a specialist doctor. PPT stated he was seen by PCP but did not have his questions answered. Medically states he has felt poorly for the past 3 weeks, which may be medication related. PPT did not require any acute medical treatment and was discharged home. In interview PPT states he went to ED because he just didn't feel right; I told ED that Marilyn had been there the day before . He endorses he is still taking the ozempic - but since starting he has been having GI upset, diarrhea, and feeling poorly. Took diabetic medicine that his endocrine doctor gave him but was told not to mix medications . We attempted to explore this further, it appears he is continuing to take Januvia. He forgot and got mixed up and took it in addition to the ozempic. Plan: again attempted to educate ppt on not treating his diabetes appropriately. Nursing to do a home visit and eval his medications for appropriate management. Encouraged to follow with endocrine, we will reach out to determine if anything else can be given at this time. Cont ozempic for now.RE grievance/leaving [facility] - PPT denies stating that he told ED physicians I didn't understand my diagnosis; I understood it at first, but now doesn't know which diagnosis are correct; these diagnosis are messing with my head and I don't know what's up and what's down. Doesn't have family members who can attend appointments, offered to have daughter call in for appointments - she is his HCP and he feels he is overwhelming her with his medical problems. We recommend weekly nurse calls and can do monthly provider visits to help him feel supported. Mr. Crenshaw has wanted to get off [place] since the first time he joined - he doesn't have mary ann in the system . Again he was asked multiple times to cite specific examples, PPT kept stating he has diagnosis that he doesn't understand. We reinforced that he has had four (today five) visits with his providers to discuss diagnosis codes in detail. He does not recall the details of this visit and continues to repeat the same questions over and over. Today's visit we again reinforced and educated him on the following diagnosis:Hep C - he does have HEp C. He not have a qualifying viral load or illness to require the treatment for this. We can refer to GI to answer any further questions. Cardiomyopathy - we again discussed what this diagnosis is and how it effects blood pressureDiabetes - we discussed this in detail, with reinforcement that his diet and A1C will eventually lead to further kidney disease and eventual early .CKD stage II - we discussed this diagnosis and the effect hyperglycemia has on kidneys and the very high probability he will need dialysis in the future if this is not improvedPatient demonstrated tangential thinking and had clear difficulty focusing on one topic at time. He had to be almost continuously redirected to complete one train of thought before starting a new one. He asked multiple questions about his diagnosis throughout interview, and then repeated the same questions a few minutes later, despite being given a very thorough and detailed answer to his question. From a medical standpoint, it is unclear if this is adult ADHD, anxiety, or cognitive impairment which drives his poor memory and very unclear understanding of his plan of care. Multiple attempts by several providers have been made to address his list of medical concerns, unfortunately his poor retention of the subject matter leaves him with more anxiety then when he came for his visit. He does go home and google his symptoms, which he has been strongly advised to avoid at each visit over these past months. PPT does wish to leave [facility] for a separate primary care provider.PPT did not demonstrate, at any point in the past four office visits, ability to reconcile the information about his diagnosis and treatment plan. He was strongly advised to have a family member attend appointments with him to reinforce what was discussed. He may require activation of his HCP in the future, for now he can continue to make his own medical decisions. FUV PPT seen today f or follow up of diabetes. He was seen for PEE and follow up over the past month. He has an elevated A1C of >11, ckd stage II. He was provided ozempic for his diabetes management, but did not take this as he read the packet and saw it can't be given with people who have kidney disease . He followed up with endocrine who recommended starting the ozempic in lieu of insulin. He has had two doses since then. PPT provided blood sugars logs (see scan) with ranges from 118 to >400. He typically runs high in the afternoon/evenings still. Again, we had a very detailed and long discussion regarding the potential side effects of untreated diabetes including worsening kidney disease, dialysis, blindness, neuropathy, and eventually and early . PPT also requested we review his medical diagnosis from his PEE last month. We discussed these in detail with the take home message being he needs to improve his diabetes management and diet. He asked about his Hep C status, will research if there is any benefit to treating this. Plan: Will provide nursing services for ozempic delivery for the next couple of weeks to insure he is taking this correctly. FUV PPT seen today f or post semiannual follow up and lab discussion. He has an elevated A1C of >11, ckd stage II. He was provided trulicity for his diabetes management, but did not take this as he read the packet and saw it can't be given with people who have kidney disease . We had a very detailed and long discussion regarding the potential side effects of untreated diabetes including worsening kidney disease, dialysis, blindness, neuropathy, and eventually and early . He is agreeable to starting insulin after he sees his endocrine physician later this month. He has a follow up with our clinic in April. Of note, ppt was strongly advised to start insulin as soon as possible. He noted he would change his diet, he was educated that he is past dietary changes to make a difference in his immediate A1C but was encouraged to change his diet and begin making better food decisions (his lipids were also elevated). PPT noted to be (+) for marijuana on drug screen. We discussed the use of this for medicinal purposes, again he was advised we cannot prescribe this, but as it is legal in the state of [place] we educated to obtain this from an appropriate dispensary and not on the street. PPT is agreeable to diet changes, insulin, will follow up with endocrine and us in the next month. PPT seen with PPT permission via secure [employer] video platform from 159pm to 228pm (29 minutes). Two identifiers (name and ) were used to confirm PPT identity. PPT location: [place], [place]. Provider location: [facility] [place]. The patient encounter today occurred during the COVID-19 need for social distancing Via [employer] video with the patient's verbal consent. Nurse Assessment DINORAH Patient is a 61 year old male who has been enrolled in the [facility] program since 2018 and is being seen for their semi annual exam.In the last six months:Hospitalizations - noneSNF admits - noneED visits - noneFalls - reports multiple falls over the past few months, has large scab on right knee from fall. Episodic - January 2022, reviewed medical diagnosis. Interview: PPT has tangential thinking, poor time understanding/recall, and easily distracted. PPT had to be frequently re-directed and did not demonstrate comprehension of our discussion. PPT has not been checking his blood sugars routinely, feels his vision is getting worse. Was seen today by optho, recommended ronda optselwyn asking about his FSBS control. He is asking about [employer] my[facility] for monitoring his blood sugars. Reports he wakes up early, since taking reduced trazodone he is sleeping less. Getting about 6 hours of sleep a night, cannot take larger doses due to hangover feeling . Will occasionally take clonazepam (AM dose) at 12-1pm dose for taking a nap. WE had a long and lizy conversation about inappropriate use of benzodiazepines for sleep. PPT was provided with very clear education that he cannot take benzo for sleep and should return to taking this as prescribed twice daily. His sleep pattern is altered due to taking a benzo in the afternoon, sleeping for two hours, then staying up late and not sleeping/staying asleep at night. Has stopped using his CPAP machine, they took me off my cpap machine Dr. Goyal states he lost 95lbs and doesn't use the cpap machine. Does get up a couple of times due to enlarged prostate. Endorses frequent marijuana use, went to a physician for a marijuana card. Still uses gummies regularly. Fall with rib fracture "3-4 months ago (this occurred in June 2021). Pain okay today, has some pain in the back and rights. Endorses being stiff/pain in the morning that resolves throughout the day. Edentulous - ?broke jaw and didn't get it fixed, can't wear bottom dentures. Wears uppers only. Has a bike in storage, started to ride this chain got caught and he wiped out . Has neuropathy, reports having numbness in his legs, toes. Recommended if he does try to ride a bike he wears a helmet. Offered therapy to help with stationary bike but he is refusing this. PPT strongly cautioned against riding a bike at this time. . Mr. Crenshaw lives with alone. HE comes to the [facility] site as needed and is transported by van. He used to attend the day program but is not interested in returning at this time. Medications reviewed and reconciled. Diagnoses reviewed. Advance Directives reviewed and unchanged. He is a full code. HCP is listed as Ashlee Borrego, alternate is Zeus Crenshaw with goals of care being longevity.Vision - seen today by optho, recommending trifocals. Dental - edentulous, wears uppers onlyPodiatry - seen a week ago, feet in great shape. No wounds. Audiology - hearing intact Colonoscopy - last at age 49, wants this scheduledMental Health - anxiety, follows with mental health professionalSpecialists - noneVitals today are: 102/58, HR 74Weight/ BMI today: 210, 28.74plan: start ozempic for blood sugar control, attempted to notify psych provider of use of benzo but cannot locate them. PPT will need to follow up with psych provider [facility]. Follow up with PCP. I will see him again in three weeks to discuss his lab results and create a plan of care to address benzo use.next visit: repeat labs that were clotted (CMP, PSA, TSH), discuss care with a mental health professional, MOCA, PHQ 9, assess for anxiety. Comments: Loco is a 61 year old male who is seen today for a RTBS to review his current medical status. Pt had asked for his most recent note where he had questions about some of his diagnoses. Answered all questions. Pt reported feeling more at ease. No concerns at this time. FUV DINORAH This is a 61 yea r old male with a medical history significant for The participant, Karthik Crenshaw, is seen today in the [facility] for a Biannual. They have been enrolled in [facility] [employer] [facility] since 03/21/2018. 0 days a week are spent by this ppt at the [place] site. Transportation is by [employer] and he primarily speaks [place]. Patient is unaccompanied for visit today. Weight at the last visit was 203.6#, today is 211# overall function has remained stable.Advanced Directives reviewed. HCP is listed as Ashlee Borrego, alternate is Zeus Crenshaw with goals of care being longevity. MOLST dated 04/02/2018 indicates the participant's wishes for Full Code Status. Yes to CPR, yes to intubation and ventilation, yes to non-invasive CPAP, yes transfer to hospital. Yes to dialysis, yes to artificial nutrition, yes to artificial hydration. The patient has had one ED visit with admission to hospital for fall 06/24/21-06/26/21 which resulted in possible lung contusion and right 4th and 5th rib fracture. Head CT and CT spine unremarkable but he was with elevated WBC and blood glucose. Discharged home without SNF stay. He was seen in urgent care for a laceration of the dorsal aspect of right foot on 05/02/21. Inguinal hernia repair on 02/06/[address] Ho.Diagnoses reviewed.Medications reviewed.Preventative Health Screenings:Colonoscopy- Last GI note from 04/2019, no recent colonoscopy results in chart. Last colonoscopy 05/2009, should repeat.Specialties:Vision- Last visit 10/06/2018 at [facility]. No diabetic retinopathy or macular edema OU. Mild cataract OU, non-visually significant. Will send referral for annual eye appointment.Dental- Last visit 08/18/2018, will send referral for dental appointment. No complaints with pain or difficulty chewing/swallowing.Podiatry- Feet are clean with trimmed toenails. Callous on the medial great toes previously saw podiatry for diabetic ulcer. Poor sensation in feet d/to neuropathy, no areas of skin breakdown. Needs referral for appointment.Urology- Last visit 04/11/21, PSA level 0.1 on 08/08/21- BPH, kidney stones. 01/2021- Cystoscopy with mild navicular fossa stricture, mild trilobar hypertrophy. Neurology- Last visit 06/14/21- Migraines, recurrent falls, RUE tremor, weakness, snoring and sleepiness. Consider sleep study.General surgery- Last visit 02/19/21 for follow up s/p open right inguinal hernia repair by Dr. Ho on 02/06/21. Some residual pain at surgical site.Orthopedics- Last visit 11/19/20 at [facility] for left shoulder pain, referred to PT and was given intraarticular Cortisone injection to bursa and joint under ultrasound guidance. Follow up PRN.Mental health- No recent notes, reports that he has a telehealth therapy appointment weekly on . Moderate depression and severe anxiety on today's mental health screenings, denies SI/HI/self harm. Most recent labs from hospitalization 06/26/21 with Glucose 251, BUN 13, Cre 1.0, eGFR 85, A1c 9.6%, B12 565, TSH 4.92, Free T4 1.08, T3 2.7, Chol/HDL/LDL/Tri 189/50/105/172. Toxicology screen positive for cannabinoids and benzodiazepines, negative for alcohol, cocaine, amphetamines, and opiates. Imaging completed this year includes brain and c-spine CT and MRI, echocardiogram documented in Dx.Current specific complaints include: chronic pain, anxiety, depression. ANTONY-7 score of 16, PHQ-9 score of 14. The patient denies SI/ HI and denies having a desire to self harm. He is currently followed by psych with weekly therapy sessions over the phone for 45 minutes, which helps with my mental health according to the patient. He us currently taking Clonazepam 2mg BID; for sleep takes Trazodone 100mg qHS, he reports that psychiatry increased his dose to 200mg qHS. med rec/ ELODIA Loco was seen tod ay in clinic for ELODIA, he gets medications from [facility] and manages them independently. OV Loco asked to be seen again concerning his falls. Stimahesh says he is weak. See prev notres. Has not gone to PT. Gave no reason for not going to PT. He has a hx of no shows. We again discussed the recent and long hx of his falls. He asked (again) about a neuro consult. As noted previously and today his neuro exam is benign with the exception of weakness. I reiterated what I told him at his last visit--let's see how he does at rehab. If they find something worrisome will of course refer him to neuro. Note---no SOB or cp or dyspnea.Loco then said he is having back pain. No injury. no radiation. as noted below---benign exam.He then asked for an oxycodone refill (I suspect this is the reason for the visit). I told him that there is no indication for narcotics. OLVIN Adan has retured for a f/u visit regarding his recent fall per my request. See previous note. Long discussion as to etiology of his falls and the most recent fall. Loco continues to say he experiences acute weakness--primarily in his legs. This has been going on for at least 2 years but has worsened. I asked him what is different during the last 2 years---he laughed and said Covid of course. He spent most of the last year confined to his apartment and readily admits he has gotten weak. Just look at my toothpick legs. the most recent fall was also associated with slippery conditions because of rain. He also states he felt even more weak before he started taking testosterone for his hypogonadism. We also discussed his use of Klonopin and Gabapentin with regard to his falls. I did a STEADI test on him last week and repeated it today---he completed the walking part 2 secs faster today. OLVIN Adan is here for a post hosp visit associated with a recent fall. He states he was walking with his cane outside but it was wet and he slipped. He has had 4 falls in the last year. The falls come because he feels acute weakness. My legs give way. He spent 3 nights at [facility]. C-T brain and spine-no acute changes. C-T chest-Fractures right 4th and 5th lateral ribs. MR-cervical spine-no sig. abnormalities. ER-qftqs-ahfx lacunar infarct, chr small vessel disease, mild volume loss. No complaints today---doesn't feel weak. Falls template completed.Hypotension--BP 100/78 today 110/78 in hospitalNeuropathy-restarting GabapentinChr insomnia-recently seen by Neurology--see below. FUV Dressings were c hanged over the weekend. Here for re-eval:Location: foot Side: right Wound Type: TraumaLength: 1.00 cm Width: 0.70 cm Depth: 0.25 cmWound Bed : Granulation Amount of drainage: confined by dressing Exudate: serous Surrounding Tissue: soft with tunneling Odor: NoPain Scale: 0 Status: healing Antibiotic Compliant: N/A Treatment: Clean with normal saline pat dry and apply aqucel ag and cover with allevyn.area has decreased in size, with less drainage. After area cleaned with NS it had increased erthema in wound bed and surounding periwound. No heat or swelling noted. There still appears to have some underlying wound under wound. ov Left foot---Cut top of foot on a bedframe----not clear how he did this. Seen in . States they glued a bandage on---??? Here for eval and tx. Seen by [employer] 2 days ago and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 heard back from the neurologist regarding repeating sleep study which she does.With regard to his bradycardia in the hospital, we rehashed details and I explained the nature of the stress test and that was primarily designed to assess chronotropic response rather than ischemia. He does say that in the days prior to his planned surgery he possible Xanax off the street and wonders if that may contribute to his bradycardia.ROS:Chronic headaches, nothing acutely changeNo acute vision changeNo dysphagiaNo current chest painNot short of breathNo acute GI complaints. Interestingly did not complain significantly of right lower quadrant pain todayNo acute urinary complaintsExam:Well-developed, middle-aged gentleman in no acute distressWell-groomedObeseVital signs are notedHe is normocephalic and atraumaticPupils are reactive, sclerae anicteric, extraocular movements fullThere is evidence of facial trauma. There is no neck painThere is no point tenderness along his spineHeart sounded to be regular, on the slower side in the 60s on my examLungs clear bilaterally without obvious adventitious breath soundsAbdomen is protuberant, soft, no guarding, no rebound.Extremities are without clubbing, cyanosis or significant lower extremity edemaRN reports 2 small abrasions to the left knee. I did not examine the skin of the left knee. Mobility and the knee was intact.Patient is awake, alert and attentive. He appears at baseline cognitive statusHe is ambulatory without difficulty. [facility] Patient is seen today for post hospital visit. The patient was admitted for planned laparoscopic hernia repair on 10/26. The patient was noted to have significant bradycardia. The patient was taken to the OR and once he was induced bradycardia persisted leading to the procedure being aborted. No surgical procedure was started.The patient was admitted. Telemetry revealed ongoing bradycardia. He was seen by cardiology (Dr. Vitale). Decision was made to proceed with treadmill to assess chronotropic competence. No significant etiology of his bradycardia was evaluated. His TSH was 8. Of note, TSH here on 10/21 was 2.7, in both cases Ft4 was 0.9. Of note the patient behaved poorly during treadmill and the test was ended prematurely. Mentions also made of the need for sleep study which had been known previously and I have inquired with his neurologist, she has not done so as of yet.No changes in medication were made. The patient reports he has constipation and feels relatively unwell. He indicates he is still taking Metamucil and has readmitted MiraLAX. He inquires regarding an enema. He does not wish to have one here. I have prescribed some.I discussed results of his hemoglobin A1c with him. I called his dental associate to confirm he has an appointment. He has appointment on November 23. Written time was given to the patient. In addition, given the printout from [facility] with all of his follow-up appointments as well as the gastroenterology/endoscopy appointment.ROS somewhat limitedChronic occasional headachesNo acute vision changeNo dysphagiaNo current chest painNot short of breathChronic right lower quadrant abdominal painHe points difficulty with urinationConstipation as after mentionedExam:Vital signs are notedMy manual pulse rate was 54Well-developed, slightly pale middle-aged gentleman in no acute distressHe is normocephalic and atraumaticThere is minimal abrasion to his right cheek, perhaps from shavingMucous membranes are decently hydratedHeart sounds are irregular with S1 and S2.Lungs are clear bilaterally without adventitious breath soundsAbdomen is protuberant, overall soft, tender only in the right low quadrant without guarding or reboundExtremities are without clubbing, cyanosis or edemaHe is awake alert and attentiveHe is memory impairedHospital labs are reviewed-TSH is most notable at Pre Op Patient was seen for preoperative risk stratification in advance of planned inguinal herniorrhaphy, possible laparoscopic exploration.Patient has had past abdominal/ surgery.He is able to achieve at least 4 METs, and likely for more. While right lower quadrant pain significantly limits him, he had been walking up to 5 miles quite recently. He has no current chest pain, he has no current dyspnea or orthopnea, he has no known significant valvular heart disease, he is not having palpitations or dysrhythmias, he is not currently acutely ill.He is unaware of any past difficulties with anesthesia. He does not currently have any bleeding diathesis clinically.Patient makes mention of his desire to see Dr. Ernestine Cheung for follow-up. It is my impression that she treated him for his hepatitis C. His viral load is undetectable. He makes mention of seeing her for evaluation of early cirrhosis. It is unclear to me that he understands that she is ID and would not typically be the person evaluating him for this. Patient is seeing GI, he deferred colonoscopy, regrettablyOngoing discussion regarding his right lower abdominal pain which is not changed. He continues to be dissatisfied that I will not provide opioids. He is moving his bowels although describes having increased constipation. Suggest that he increase his bowel regimen. He did later inquire regarding the possibility of pursuing medications specifically and that opioid related to constipation as suggesting GI note although, in the GI note they indicated pursuing this in the event that he does not respond to more conventional treatment. In point of fact he has responded however does not particularly like it.He makes note of the fact that endocrine increased his sulfonylurea, which we knew.He makes mention of returning to see Jeffrey Yogi at [facility]. I asked him to clarify why. He indicated he was to see him for his back. I told him that this would only be useful if those operative disease in his spine. He said he would not be inclined to have surgery absent critical need. He is scheduled to have MRI later today to exclude L1-L2 radiculopathy as a cause of his right lower quadrant pain, although I think it is highly unlikely. This will be helpful with regard to his back pain as well.ROS:Occasional headachesNo acute vision changeNo dysphagiaNo current chest painNo shortness of breath, wheezingAbdominal pain as aforementioned, some degree of lower urinary tract symptoms, overall stableWe again discussed the indicated regarding sleep apnea. He tells me he saw neurology yesterday but no mention was made of consideration of repeat polysomnogram.Exam:Well-developed, well-groomed middle-aged gentleman in no acute distressHe is normocephalic and atraumaticPupils are reactive, sclerae anictericMucous membranes decently hydratedOropharynx is not excessively crowdedNo obvious JVDHeart sounds regular with S1 and S2. No definitive murmurLungs are clear bilaterally without adventitious breath soundsAbdomen is protuberant, soft, obese, overall free of guarding or rebound. There is very nonspecific right lower quadrant pain to deep palpationExtremities are without clubbing, cyanosis or significant edemaEKG was compared with one from [facility] from 2013. There may be subtle LVH. T inversions in 3 are old. I do not see any other he is in sinus rhythm. There is minimal IVCD [id number] INR was 1.2.CBC and chemistries were to be drawn although I believe he left without them Biannual Late entry for 1 11/03/18. Please see note of that day for HPI, Hx, ROS and exam. A/P was not compeleted prior to the note locking and will be documented below. I will bring forward the aforementioned elemebts of the locked note for ease of review.Patient is seen today for biannual. Of note, history is somewhat limited by the degree of cognitive impairment, inattention. Also of note, later in the encounter the patient was fairly dissatisfied as I would not offer opioid analgesics. He had many questions if this is related to his current treatment with methadone, his past difficulties with substances. I explained that we'll certainly current treatment with methadone would be an issue with regard to opioid treatment I did tell him that even if he had no history of opioid misuse/difficulties with addiction, his current pain is not one that I would typically start treating with opioids even if the pain was de modesta.Please see additional data below. He had no hospitalizations but many ER visits. He had quite a bit of abdominal imaging, largely in the context of the ER. He was seen by surgery, again please see below.He often sees different providers and often the care is not optimally coordinated due to medication difficulties and the fact that he is at times going of his own behest. I have not heard from his dental associate recently.Physical complaint is the abdominal discomfort. There is nothing in particular new about it. It is present in the right lower quadrant. There are no clear exacerbating factors. Upon point he thought it was better with bowel movements but now he does not believe so. Ambulation and exertion makes it worse.He does report he has headaches. Highly variable. On rare occasion he has severe headaches that require application of ice and a dark room however this is extremely infrequent. He sees neurology although I regrettably get no notes from them. I have sent a letter to the neurologist asking about repeat polysomnogram given his multiplicity of challenges.He reports he is due for new glasses. His hearing is okay. He does not wear his bottom plate. On rare occasion he says that food gets caught in his throat however he does not choke. He has some reflux symptoms.Urinary symptoms are much improved since neurology put him back on medications.I do not have current glucose data. He says sugars have been overall failure.See ROS belowSocial history: Denies alcoholDenies smokingMarijuana userDenies other drugs currentlyExam:Height 72 inches, weight 208 pounds, lying vital signs 130/72, pulse 54, respiratory rate 16, temperature 97.7, room air oxygen saturation 97%Sitting vitals 126/70, pulse 58Standing vitals blood pressure 120/70, pulse 64Well-developed, middle-aged gentleman in no acute distress. He is normocephalic and atraumatic. Pupils are reactive, sclerae anicteric, likely early cataractsUpper plateNares patentTympanic membranes intactHearing grossly normalNo obvious cervical adenopathy or JVD. I don't clearly feel nodularity of the thyroid but would not exclude hisHeart sounds to be regular with S1 and S2. No murmurs/rubs/gallopsSome degree of symmetric bilateral gynecomastiaLungs clear bilaterally without adventitious breath soundsAbdomen is protuberant, soft, no obvious mass nor obvious rebound or guarding. There are no skin changes in the area that bothers him.No obvious bladder tendernessExtremities are without clubbing, cyanosis or edemaThere are trace to 1+ palpable dorsalis pedis pulses. There is abnormal monofilament but not insensate at allFacial symmetry is preserved. Moves all extremities with fair strength. Gait is fairly normal. Use cane on occasion.Oriented. Does have a degree of memory impairment. Is somewhat easily distractible. Somewhat scattered memory/thought pattern Additional details Interval data in past 6 months:CTs of abdomen on 01/05/19, 04/22/19 and 05/02/19, at least the last 2 via the ER.The CT of 05/02 can't be viewed however the one of 04/22/19 reports evidence of acute process, unchanged from 1.1 cm nonobstructing stone in the right lower poleMild steatosis andModerate colonic fecal loadingBilateral fat-containing inguinal hernias.Ultrasound done to follow-up liver lesion showed focus without internal vascularity likely an area of focal fatty sparing. Diffuse echogenic parenchyma consistent with steatosis. Mild fullness of the right renal pelvis is improved from prior right UPJ obstructionPt seen by surgery surrounding question of the hernias and his contribution to his right lower quadrant pain. Surgeon's initial opinion was that this was likely not the cause. She developed constipation was likely cause, his constipation is better however his pain is not. He will see surgery againSeen by GI. They wanted the constipation fix before proceeding with colonoscopyHe has been seen in the ER roughly 4 times, almost surrounding abdominal discomfort. Headache- Patient was seen today to clarify several on-call complaints. In 1 call the patient reported that he had headache, that had been present for months. He contended that he could not take it. That neither the neurologist nor I had done anything to address this. He apparently expressed interest in having pain medications.In another call with site staff he discussed chronic abdominal pain which is known.I spoke with the patient surrounding his complaints and try to clarify. He reports initially that he has no headache and rarely does. He subsequently reported that he does at times have a headache but that that is not a primary source of pain and that he generally will take OTC analgesics and it is adequate.With regard to the right lower quadrant pain he reports that it is persistent. He had particularly bad time several days ago. We reiterated the workup done heretofore, his visit with the surgeon, his visit with GI, the plan for colonoscopy. I again told him of the highly improbable likelihood of it being an upper lumbar radiculopathy although given absence of other explanation I think it is worthwhile exploring.Again, he reports that the discomfort essentially as in the area under the right side of his pannus. It really crosses midline. It is worse when he is wearing a belt. Unclear if is any relationship with bowel movements. He does say that now his bowels are regular and perhaps it helps a bit.We spoke a bit about his sleep apnea. I did explore whether this possibility that he has ongoing sleep apnea contributing to pain and cognition among other things. He has a known history of sleep apnea however reportedly resolved. He is followed by neurology who does the sleep apnea testing. I will reach out out to her to explore this.He obliquely suggest that he had URI symptoms last week. He is taking loratadine with some improvement. He suggests he has sore throat but is now better. He apparently has sick contacts. He does not describe influenza-like syndrome.Fingersticks are reasonably well-controlled. Generally 150s in the morning. Afternoon is more variable.Patient inquired regarding possibility of having opioids. He had previously been to the ER and received morphine. He says he is hoping that when he has severe pain he can avoid going to the ER. I explained that given his opioid abuse history as well as current use of methadone I am extremely reluctant. I did tell him that I would give him 2 tablets to be using case of diet emergency however that I had no intention of routinely prescribing opioids to him.ROS:Sleep variableMood variableVision failureNo dysphagiaNo current chest painHas a long history of intermittent chest painNot currently short of breath, baseline exercise toleranceAbdominal discomfort as aforementioned, no nausea or vomiting. Chronic constipation is improvedNo acute urinary symptomsExam: Vital signs are notedWell-developed, middle-aged gentleman in no acute distressHe is normocephalic and atraumaticPupils are reactive, sclerae anicteric. Mucous membranes seem slightly dryNo obvious JVD or cervical adenopathyHeart sounds irregular with S1 and S2. Lungs are clear bilaterally without adventitious breath soundsAbdomen is slightly obese, protuberant. There is no tympany. Abdomen is soft. There is no guarding or rebound. There are no skin lesions. There is no palpable mass in the area of discomfort.There is no clubbing, cyanosis or edemaPatient's awake and alert. He has significant memory impairment which is keenly aware of. He is at times apologetic at other times clearly somewhat frustrated [facility] Patient is seen for follow-up post ER. The patient has a very long history of chronic right lower quadrant abdominal pain. Today he reported that in addition to the right lower quadrant pain he occasionally has left lower quadrant pain. He has been evaluated fairly extensively with multiple CTs in the ER. He is awaiting GI appointment for colonoscopy, having been seen already. In addition, he sought general surgery last week, a surgeon specifically specializing in hernias due to presence of bilateral inguinal hernias on most recent CT. It was her impression that the abdominal pain is unrelated to the hernias.The patient was under the impression that she would be doing hernia surgery. I spoke to the office, there are no such plans currently.The patient reports that he awoke with the pain yesterday. It was more severe than usual. He spoke to surgery office. He was ultimately told to go to the ER. ER evaluation was fairly unremarkable. Labs were reassuring. Exam was reassuring and the patient was discharged.Pain today is fairly minimal. Even when pain was significant he was ambulatory, eating, drinking, moving his bowels,. The only thing particularly abnormal labs was that lipase was 207. He does not have any epigastric or upper abdominal pain. He does not have dysuria per se. He does say that his lower urinary tract symptoms seem to have returned. He did take a brief holiday from his tamsulosin. He is now taking his urinary medications again.We spoke about the gabapentin. Please see recent notes surrounding prescribing by the neurologist denied. He was under the impression that I thought that the gabapentin from the neurologist may be a new medication. I told him that was not my perception but rather had concerns about errors resulting from multiple prescribers. He ostensibly understood.I told him that I had been in touch with his dental associate's office via fax of his blood sugars.. He indicated that his supine. Dose was increased, suggested that the nocturnal dose was in immediate release rather than sustained release. I have not received any correspondence from endocrine as of yet.ROS:No new headachesNo acute vision changeNo dysphagiaNo current chest painNo current shortness of breathNo acute GI complaints save for the above. He reports that with fiber he is moving his bowels are better. He is taking the MiraLAX sporadically.Increased lower urinary symptoms as above, says he thinks he will go back to urology.Chronic pain syndromeSleep variable, this is not newExam:Well-developed, middle-aged gentleman in no acute distress and on his him was cephalic and atraumaticPupils are reactive, sclerae anictericMucous membranes decently hydratedAbdomen is somewhat protuberant, soft, no guarding, no rebound, there is no cutaneous hyperesthesia. There is no palpable abnormality in the area of the right lower abdomen that is painful (under pannus)Extremities are without obvious edemaHe is awake, alert and attentive. He is memory impaired.Blood work 07/14/19-WBC 8.3, hemoglobin 12.9, platelets 251, increased monocytes, chemistries fairly unremarkable. Lactate was 1.7. Anion gap was 13. Lipase was 207. Alkaline phosphatase 58. Urine was not consistent with infection.Reports (not confirmed):Methadone 15mg/dTrazadone 200mg HS Abdominal Pain- Patient was seen today for abdominal pain. Please see recent notes. The patient called hospital personnel director last night with complaint of ongoing right lower quadrant pain. This pain has been present for months or longer. He has had extensive workup. He has had numerous CTs. He has been seen by surgery, colorectal and GI. His colonoscopy is scheduled however seemingly not till next year.The pain is predominantly located in the right lower quadrant. He is somewhat conflates it with long-standing inguinal pain which she has had for many years.We discussed his constipation at some length. He recalled the GI had made mention of medications for opioid-induced constipation. I told him (and printed out the names for him) that they did indeed make mention of this however suggested that he try fiber and escalation of his MiraLAX. He is somewhat inconsistent with reporting the amount of MiraLAX he takes. He had one point suggest that he takes it twice a day. As before, he is so reluctant as it does not produce stool quality that is to his liking and makes it difficult for him to leave his home. He is currently taking fiber in the form of cereal. We discussed other options.He is able to eat. He reports moving his bowels variably. He is urinating. He is not having significant hematuria.The pain largely radiates around the lower abdomen/right lower quadrant somewhat wrapping around his anterior body.ROS:Not having significant headachesMemory difficulties without changeVision fairMissing his dysphasiaNo appreciable chest pain, does have some chronic symptoms that have been worked up extensively. No shortness of breathGI as aforementionedExam:Well-developed, middle-aged gentleman in no acute distressHe is normocephalic and atraumaticPupils are reactive, sclerae anictericMucous membranes decently hydratedObvious JVDAbdomen is slightly protuberant, soft, there is no significant guarding or rebound.Extremities are without clubbing, cyanosis or edema PHV Patient is being seen today for posthospital follow-up. Of note the patient canceled number of occasions and therefore there was a delay in his follow-up. The patient was seen in the ER on 04/22/19 and again on 05/02/19. In both cases he presented with abdominal pain. In both cases he received a CAT scan and lab evaluation. In both cases there was no clear diagnosis. Of note, he is noted to have microscopic hematuria. He previously underwent CT urogram and cystoscopy with no clear cause of microhematuria.The patient continues to have right lower quadrant pain is somewhat intermittent pattern as he has for this juncture for many months if not more than a year. He has had numerous imaging studies and interactions with the ER, urology, myself. He has seen surgery for unrelated complaints. He is awaiting GI evaluation as he apparently canceled previous appointment. The appointment will be in the next 1-2 weeks.On the patient presented with flank pain. It apparently had been worse for 2 days. Urinalysis at that time showed 1+ albumin, 3+ glucose, 2+ hemoglobin, no white blood cells, 17 red blood cells, he was mildly anemic with a hemoglobin of 12.4. CT of abdomen showed no acute process, known right lower pole renal stone, mild steatosis, moderate colonic fecal loading and bilateral fat-containing inguinal hernias. There was no PVR.On 05/02 he presented with right lower quadrant abdominal pain. He reported that his MiraLAX was effective and his mother having multiple bowel movements per day. Urinalysis showed 2+ albumin, 2+ glucose, 1+ hemoglobin, 31 red blood cells, 1 white cell. Hemoglobin was up to 14.2. LFTs were normal. CT of abdomen showed no evidence of acute abdominal or pelvic pathology. The 1.2 cm stone in the right. There is mention of a 1.7 cm hypodense lesion in the left lobe of liver which may represent focal fatty infiltration over lesion is not clearly seen in the prior study. The lesion is not well characterized. Further evaluation with follow-up liver ultrasound scan to provide for stability versus an MRI with and without contrast was recommended.The patient recalls the second event in greater detail. He says he was at a coffee house and developed abdominal pain and vomiting and ultimately to present to the ER. He indicates that he is using the MiraLAX albeit in a less than consistent fashion and at times he develops loose stools and other times he is somewhat constipated. After much discussion of other options indicated to continue using same.Since his last ER visit he has continued to have intermittent lower abdominal pain. States subjectively severe. He again cannot identify any clear precipitating or obvious mitigating factors. He is uncertain if there is any relationship with his constipation. The nature of the pain is at times sharp and other times does not. Seems to be predominantly in the right lower quadrant rather than more superiorly in the flank. There are no obvious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 at home, and was considering going to the ER because of a past cervical fracture. He has a non-slip shower mat, however he did not use it.There has been no altered mental status or loss of consciousness. No change in vision. No paresis or paresthesias in arms or hands. Admits to chronic neuropathy in feet, no increased weakness in legs. Area of most discomfort is right posterior neck area, and low back (admits to chronic pain in this area). He did bring in a copy of his lumbar spine MRI from 2012, obtained for nueritis, low back pain. Results show spondylotic and degen. changes, foraminal narrowing.Alert, pleasant, NAD. Neck exam with increased tenderness upon palpation of soft tissue of right posterior neck. No swelling heat, or redness/bruising appreciated. No tenderness or visual abnormality along spine, left posterior neck, or anterior neck.AROM slightly reduced right rotation, othrwise WNL. Low back pain is bilateral, lumbar area. No acute or reproducible pain with palpation.Able to lay down, sit up, ambulate without difficulty. Nurse Assessment Met with PPT at in the [facility] for in-person assessment for SDR for Freestyle test strips. PPT states I have been using it since I got Diabetes diagnosis over 15 years ago. It's easy to use. I am used to it . PPT was informed that his request would be brought to [facility] on Thursday and will be provided with an update as soon as a deceision is reached. diabetes PEE Patient is seen today for possible evaluation. Medical records have been reviewed and data entered this my abilities.Patient is in his usual state of health. He describes ongoing fatigue and poor sleep. Mild ascending as if he is no longer using CPAP. He continues to have significant depressive symptoms. He tells me that psychiatrist considering use of SSRI. He remains lonely in spite of the fact that he currently has a significant other, whom he finds very helpful. He worries about her health problems. He finds the setting where he lives to be not to his liking and also finds people around him that are more ill to be somewhat depressing as you as there is the possibility of him growing worse.His sugars have historically been quite well-controlled. He says that of late he has been checking his sugar slightly less and then somewhat less adherent. He details a carbohydrate rich meal last night and says that his fingerstick this morning was 240. This is apparently significantly out of the norm.He has not had recent hospitalizations, very recent falls, significant recent functional changes.Past medical and surgical histories are reviewedAllergies are reviewedMedications are reviewed, although some ambiguity remains my mind regarding of his medicationsSocial history:Patient was born in [place]. 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 There is mention in medical records of past heroin use. The patient clearly had some degree of issue with opioids as alluded to in notes as well as his own history.Family history: There is a reported familial history of alcohol abusePer patient's father in his 80s with a history of stroke and OR although not prematurelyMother had Alzheimer's by report. She said smoked like a chimney . She is reported to have had some degree of cardiac disease, diabetesBrother is hypertensive, may have LE. He says his older brother is significantly forgetful and he suspects has cognitive disorderSpiritual history:The patient was raised in the taoism. It is uncertain when she left at some point. He is currently very involved with a taoism group. He finds it to be a great support.Please see review of systems below.Patient does have headaches, thought to be possible cluster versus other form he has tried a variety of agents including Vermilion, magnesium and verapamil at pointsHe is occasionally lightheaded. He walks with a straight point cane.The patient tells me he has had workup for dysphagia in the past. He still has occasional globus sensation.The patient has long-standing chest pain syndrome which she's had since disease. He has been admitted and stress number of times.He has significant constipation, likely related to opioidsHe has significant nocturia and lower urinary tract symptoms. Improved somewhat with current medications. He will be following up with urologyHe has chronic low back pain and lower extremity pain.He has some degree of callus formation and the right great toe. He implies that he has ulceration underlying it and that is shaved periodically by podiatry. Intake Mr Crenshaw is a 57- year-old gentleman seen today for intake. There are no medical records available for review beyond what I am able to access in the [facility] system. He is unaccompanied. The medication list on the MDS appears to have change in the interim.This gentleman has not been recently hospitalized. He reports that his last fall was approximately 6 months ago and he does not fall frequently. The patient is independent in all ADLs by his report. Currently receives assistance with homemaking tasks.I asked patient about his hopes for the program. It would appear that he is overall seeking more coordinated care. I did explain to him that some of the annoyance is that he cited in his current care model are likely due to persist, such as requiring office coordination of specialist visits and the like.He reportedly has a healthcare proxy. He identifies his daughter as such. He does not have a copy of it although a copy does exist in the [facility] system. I did not compare the available document to his current preferences but I believe it is the same, namely his daughter Ashlee Borrego.Allergies: To be clarifiedPharmacy: [facility] [address]wMedications: My sense is that the list is incomplete however at the moment it appears to be as follows:AndroGel 3 activationsLisinopril 10 mg dailyMultivitaminMiraLAX as neededKlonopin, he reports 4 time a day dosing but takes 3 times most daysGabapentin seemingly down to 300 mg at bedtime although unclearGlipizide which he says is now 10 mg, seemingly ERSimvastatin 10 mg at bedtimeVitamin D2 reportedly 50,000 units monthly although this seems unusual and long-termLoratadine 10 mg dailySpray which appears to be fluticasoneHe suggests he is on finasteride, dosing unclearHe reports he is on metforminMethadone, reportedly 39 mg daily. He is supposedly on a tapering dose. He is rather uncertain as to whether this is for pain or opioid addiction. He says he was referred many years ago by his orthopedic surgeon for pain however it does not seem to be for pain.Current primary care and is [facility] for methadoneDr Pagar for prostateIt is a bit unclear who he sees for sleep medicineHas [facility]: This list is by no means comprehensiveRadiographic evidence of osteoarthritis of kneeEvidence of hip arthritisLeft 7-9 rib fracturesC7 fracture due to traumatic injury in 2012Spondylosis and degenerative changes in lower backRight shoulder rotator cuff tear and before meals joint changesDepressed EF at 44% on stress in 2008, he reports repeated chest pain evaluations although I only see one stress test in the [facility] systemMost recent TSH elevatedHistory of obstructive sleep apnea, apparently better than last exam (although I don't see polysomnogram) and he is no longer using CPAPMemory loss of indeterminate etiology seemingly related to LE, substances and other. At last neuropsych testing he was improvedAnxietyChronic pain including low back pain.MigrainesHis reported as having diabetic ulceration however what he has appears to be a callusHistory of hepatitis A, B and C positivity. Interestingly his viral load of hepatitis C appears to be 0. Hepatitis B is antibody positive and core antibody positive but surface antigen negative. He denies ever having been treated for hepatitis CSelf-reported liver disease presumably related to viral hepatitisVitamin D deficiencyNocturnal leg crampsAppendectomy and hernia repairProstatic hypertrophyFacial pain syndromeEquivocal dysphagia although he does not follow a special dietHistory of opioid addictionFunctional history:As aforementioned, independent in ADLsHas difficulty with liftingWalks with a cane.Has no difficulty with hearingHas upper dentures but not lowers currentlyNo hearing aid Instructions Date Instruction Additional Infor linsey Hep C - he does have HEp C. He not have a qualifying viral load or illness to require the treatment for this. We can refer to GI to answer any further questions. Related to Hepatitis C virus infection without hepatic coma, unspecified chronicity eGFR 81, will worsen if diabetes not controlled. referred to endocrine. Related to Chronic kidney disease, stage 2 (mild) Echocardiogram with normal LV size and normal LV wall thickness. Low normal LV systolic function. The left ventricular ejection fraction is 50-55%. There are no definite regional wall motion abnormalities. Right ventricle is normal in size and function. Left atrium is mildly dilated. Pulmonary artery pressure estimation is within normal limits.Previous EF with 44% on stress test in 2008, but with no clinical manifestations of heart failure. Etiology of the depressed EF unclear, takes Lisinopril for proteinuria.- Continue Lisinopril 10mg PO daily.- Monitor for heart failure symptoms. Related to Cardiomyopathy, unspecified type History of substance use. No longer on Methadone. MOCA- Etiology of previous impairment not clear. He often forgets parts of our conversation and asks the same questions just minutes apart. Anxiety may play a large factor in his impaired cognition. -Continue to monitor for fluctuations. Related to MCI (mild cognitive impairment) PPT demonstrating se harsha anxiety, tangential thinking during interview today. Fiixations and anxiety around current diagnoses. Has had several (5) meetings to discuss and answer questions. Pt does not retain all of our conversation and often looks up information on the internet which causes more anxiety. Related to ANTONY (generalized anxiety disorder) CKD with eGFR <90 , A1C over 11, CKD worsening is inevitable. focus on blood sugar control. avoid nephrotoxic agents when possible, most medications to treat diabetes are kidney metabolized. continue ozempic as ordered. follow up with pcp Related to Type 2 diabetes mellitus with hyperglycemia, unspecified whether ferry terminal supervisor insulin use Pt thinks it is canc er. Appears to be a skin tag on his left neck. Has had for many years . Requested dermatology referral. Order in place. Related to Skin tag CKD with eGFR <90 , A1C over 11, CKD worsening is inevitable. focus on blood sugar control. avoid nephrotoxic agents when possible, most medications to treat diabetes are kidney metabolized. continue ozempic as ordered. follow up with pcp Related to Type 2 diabetes mellitus with hyperglycemia, without long-term current use of insulin CKD with eGFR <90 , A1C over 11, CKD worsening is inevitable. focus on blood sugar control. avoid nephrotoxic agents when possible, most medications to treat diabetes are kidney metabolized, recommend consult with endocrine or to begin insulin if PPT capable. follow up in three weeks. Related to Type 2 diabetes mellitus with hyperglycemia, without long-term current use of insulin PPT not taking benzo appropriately. USing for sleep, now interrupting his sleep pattern. Reports this is RX'd by a mental health professional, there are no records of this and cannot locate a provider. Will re-address at his follow up in three week. Placed referral for counseling services. Related to Other psychoactive substance use, unspecified with psychoactive substance-induced sleep disorder poor sleep pattern l malcolm exacerbated by his use of benzo in the afternoon for a 1-2 hour nap. discussed this at length. will follow up in three weeks. Related to Insomnia, unspecified type Previously seen by [facility] for migraine and sleep difficulties. In event of headache, he takes tylenol PRN, Naproxen 1 tab BID at onset, and magnesium qHS for prophylaxis.-Continue medical management.-Monitor for episodes. Related to Chronic migraine without aura, intractable, without status migrainosus OLd CXR ? suggestion of COPD. Marijuana smoker, no tobacco. I am not aware of PFTs being done. Clinically no overt manifestation, occasional shortness of breath with exertion, no lower extremity edema. Left atrial enlargement on most recent echo with EF 50-55%. Does not have inhalers or other COPD medications on medication profile. He does not use oxygen at baseline.-Consider PFT testing.-Consider sleep study for LE. Related to Dyspnea, unspecified type Had significant slee p apnea and uses Pap therapy in the past. Was told that he had some residual sleep apnea but no longer required CPAP. -Consider another sleep study for difficulty sleeping, snoring, and daytime drowsiness reported today. Related to Moderate obstructive sleep apnea Patient with a histo ry of opioid abuse although he often suggest that the methadone was started for chronic pain. He reports that he has been tapered off methadone. Inguinal hernia repair surgery with Oxycodone 5mg PO for post operative period, discontinued already. Uses acetaminophen, lidocaine patches, and bengay patches for pain control. -Will re-fill lidocaine prescription. Prn-Chronic pain group recommended to him.-Risk of relapse significant Related to Opioid dependence, in remission Patient reports use of cannabis with some regularity. Very difficult to know if this is helpful or harmful to his mental health and overall cognitive functioning. He states that he noticed he is smoking less and is happy with that because he notes that cannabis increases his appetite and causes him to gain weight. He has his medical card but reports that it is often too expensive and he purchases from a person in his building -Encouraged to use dispensary quality edibles if he is to continue with cannabis use as it is safer than smoking.-Balance, unsteady gait and falls could be worsened while under the influence.- urine tox screen negative today Related to Cannabis use, unspecified, uncomplicated unable to stay focus ed for eval today, will repeat PHQ9 at next visit. He reports poor sleep, impulsive behaviors. uses cannabis intermittently, drug screen negative today. can consider ssri. taking clonazepam and trazodone. will need to establish care with mental health services Related to Major depressive disorder, recurrent, moderate PPT demonstrating se harsha anxiety, tangential thinking during interview today. reports having a psychiatrist, attempted to reach this person but it appears he is not being followed by anyone. Taking benzos inapprorpiately. had a level set conversation about this and sent referral for our mental health team to eval and follow. He will need to establish care with a mental health professional to continue being given benzos. Related to ANTONY (generalized anxiety disorder) History of BPH. patricia [facility] not seeing patient any more after a series of no-shows. Last PSA 0.1, currently on Tamsulosin and Finasteride 5mg PO daily.-Continue medical management.-Monitor for symptoms.- PSA drawn today, clottted. will redraw Related to Benign prostatic hyperplasia with lower urinary tract symptoms, symptom details unspecified BP well controlled a t today's visit. Vitals today are: 102/58, HR 74. last eGFR in the 70s, that was in August 2021. repeat labs at follow up, to monitor kidney function.-Continue to monitor BPs.-Continue Lisinopril 10mg PO daily. Related to Hypertensive chronic kidney disease with stage 1 through stage 4 chronic kidney disease, or unspecified chronic kidney disease This is likely due t o a combination of diabetes, passed significant obesity, perhaps viral hepatitis. He does not have significant liver dysfunction.-May need episodic monitoring with ultrasound to exclude development of HCC, which is a theoretical risk of-Controlled diabetes/obesity Related to Steatosis of liver Hep C antibody posit chetan, viral load undetectable. Reportedly never treated.-No specific action indicated Related to History of hepatitis C Patient has upper de nture only. Apparently had lower denture but was lost. He saw dental in 2018 with a site mention of his past jaw fracture and that he had difficulty wearing the lower denture. He is interested in the lower denture-Refer back to dental Related to Edentulous Patient is on 2000 u nits of vitamin D daily-We will continue same-No routine monitoring of blood levels Related to Vitamin D deficiency seen by elmer today, pending note. will discuss at follow up visit in three weeks. Related to Combined forms of age-related cataract, bilateral Takes Metformin, Aman uvia and Glypizide. Last A1c11%-Continue current diabetes medications.- add ozempicEndocrinology referral for improved glucose control. 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 Has since stopped methadone treatment. Previously followed by endocrinology and was on testosterone replacement. He has been seen by urology. PSA has been acceptable, last PSA level 0.1. attempted to obtain today, sample coaged. will redraw at follow up-Monitor for changes in methadone treatment or substance abuse. 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 A1c much higher at 11%. follow up with optho and will recs for endocrine consult. Related to Type 2 diabetes mellitus with diabetic cataract, without long-term current use of insulin CKD with eGFR <90 , was 78 in August 2021. Labs drawn today, sample coaged and will have to draw. A1C over 11, CKD worsening is inevitable. will redraw labs at follow up and focus on blood sugar control. avoid nephrotoxic agents when possible, most medications to treat diabetes are kidney metabolized, recommend consult with endocrine or to begin insulin if PPT capable. will start ozempic for now. follow up in three weeks. Related to Type 2 diabetes mellitus with stage 2 chronic kidney disease, without long-term current use of insulin eGFR in the 70s Dece mber 2020. History of proteinuria, on Lisinopril 10mg PO daily. Labs drawn today, coag. will redraw and review once available.-Continue diabetic medication management.-Avoid nephrotoxic medications.-Consider Endocrinology consult for improved management of DM. Related to Chronic kidney disease, stage 2 (mild) very poorly controll ed with A1C 11.1, start ozempic 0.25mg weekly. still has numbness, neuropathy to bilateral feet. recently saw podiatry. continue to monitor A1c, recommend dietary intervention and potentially escalate to insulin if ppt capable of this. Related to Type 2 diabetes mellitus with diabetic polyneuropathy, without long-term current use of insulin Currently takes Simv astatin 10mg PO qHS. Most recent labs from hospitalization 06/26/21 with Chol/HDL/LDL/Tri 189/50/105/172. Labs drawn today, will review once available. labs not collected today. will draw at follow up.-May consider increasing statin dose depending on lab results. Related to Hyperlipidemia, unspecified hyperlipidemia type Echocardiogram with normal LV size and normal LV wall thickness. Low normal LV systolic function. The left ventricular ejection fraction is 50-55%. There are no definite regional wall motion abnormalities. Right ventricle is normal in size and function. Left atrium is mildly dilated. Pulmonary artery pressure estimation is within normal limits.Previous EF with 44% on stress test in 2008, but with no clinical manifestations of heart failure. Etiology of the depressed EF unclear, takes Lisinopril for proteinuria.- Continue Lisinopril 10mg PO daily.- Monitor for heart failure symptoms. Related to Cardiomyopathy, unspecified type Echocardiogram with normal LV size and normal LV wall thickness. Low normal LV systolic function. The left ventricular ejection fraction is 50-55%. There are no definite regional wall motion abnormalities. Right ventricle is normal in size and function. Left atrium is mildly dilated. Pulmonary artery pressure estimation is within normal limits. No prior study available for comparison. Related to Abnormal echocardiogram A1C 11.1, start ozempic 0.25mg w eekly Related to Type 2 diabetes mellitus with diabetic polyneuropathy, without long-term current use of insulin Podiatry referral Related to Typ e 2 diabetes mellitus with diabetic polyneuropathy, unspecified whether custodial insulin use Takes Metformin, Aman uvia and Glypizide. Last A1c in hospital was 9.6%.-Continue current diabetes medications.Endocrinology referral for improved glucose control. Related to halfway (current) use of oral hypoglycemic drugs Most recent labs fro hospitalization 06/26/21 with eGFr 85, Cre 1.0, BUN 13, Glucose 251, A1C 9.6%. Glucose was 460 on presentation to ED. History of proteinuria, on Lisinopril 10mg PO daily. Labs drawn today, will review once available.-Continue diabetic medication management.-Avoid nephrotoxic medications.-Consider Endocrinology consult for improved management of DM. Related to Chronic kidney disease, stage 2 (mild) Had significant slee p apnea and uses Pap therapy in the past. Was told that he had some residual sleep apnea but no longer required CPAP. -Consider another sleep study for difficulty sleeping, snoring, and daytime drowsiness reported today. Related to Moderate obstructive sleep apnea Hospitalization at [facility] +/- contrast 06/26/21- No acute or subacute infarct, mass, hemorrhage, or other acute intracranial abnormility. Tiny chronic lacunar infarct in right inferior cerebellum, new from 2013. Minimal T2/FLAIR hyperintense foci in the white matter, nonspecific but most likely reflecting chronic small vessel disease. Mild volume loss.MRI Cervical spine without contrast 06/26/21- No significant stenosis, cord/nerve compression, or cord signal abnormality to explain patient's symptoms. Related to Abnormal MRI Has improved, histor y of substance use. No longer on Methadone. MOCA- Etiology of prev impairment not clear.-Continue to monitor for fluctuations. Related to MCI (mild cognitive impairment) Echocardiogram with normal LV size and normal LV wall thickness. Low normal LV systolic function. The left ventricular ejection fraction is 50-55%. There are no definite regional wall motion abnormalities. Right ventricle is normal in size and function. Left atrium is mildly dilated. Pulmonary artery pressure estimation is within normal limits. No prior study available for comparison. Related to Abnormal echocardiogram The last ophthalmolo gy noticed she is from 2018. He had bilateral cataracts. Difficult to see if they progress. He reports that his glasses don't serve him well which may reflect something other than glasses.-Sent referral back to ophthalmology Related to Combined forms of age-related cataract, bilateral History of BPH. [facility] not seeing patient any more after a series of no-shows. Last PSA 0.1, currently on Tamsulosin and Finasteride 5mg PO daily.-Continue medical management.-Monitor for symptoms. Related to Benign prostatic hyperplasia with lower urinary tract symptoms, symptom details unspecified Previously seen by [facility] for migraine and sleep difficulties. In event of headache, he takes tylenol PRN, Naproxen 1 tab BID at onset, and magnesium qHS for prophylaxis.-Continue medical management.-Monitor for episodes. Related to Chronic migraine without aura, intractable, without status migrainosus Dec-28-2021 Patient with a histo ry of opioid abuse although he often suggest that the methadone was started for chronic pain. He reports that he has been tapered off methadone. Inguinal hernia repair surgery with Oxycodone 5mg PO for post operative period, discontinued already. Uses acetaminophen, lidocaine patches, and bengay patches for pain control. -Will re-fill lidocaine prescription.-Chronic pain group recommended to him.-Risk of relapse significant Related to Opioid dependence, in remission Patient reports use of cannabis with some regularity. Very difficult to know if this is helpful or harmful to his mental health and overall cognitive functioning. He states that he noticed he is smoking less and is happy with that because he notes that cannabis increases his appetite and causes him to gain weight. He has his medical card but reports that it is often too expensive and he purchases from a person in his building who sells him weed from [place] for $30 an 8th .-Encouraged to use dispensary quality edibles if he is to continue with cannabis use as it is safer than smoking.-Balance, unsteady gait and falls could be worsened while under the influence. Related to Cannabis abuse, uncomplicated PHQ-9 with score of 14 reflecting moderate depression. As best I can tell, unless there is additional medication being prescribed by psychiatry, he is not on any antidepressant aside from the trazodone which is not being used currently for antidepressant properties. He continues to see his therapist, remotely, on for 45 minutes, which helps . Reports that he does not use alcohol or other drugs. Reports cannabis use intermittently, but overall has seen a decline in his usage as he feels that it causes him to gain weight d/to increased appetite. Denies continuing Methadone treatment. Chronic pain likely related to depression.-Chronic pain group recommended to pt, who is interested in participating.-Consider plan to adjust medications to better address his symptoms as currently, PHQ-9 score is moderate depression. Related to Major depressive disorder, recurrent, moderate ANTONY-7 today score of 16 reflecting severe anxiety. Patient with enormously complex amalgam of cognitive impairment, substance dependence, mood disorder, anxiety disorder. His anxiety disorder is most consistent with generalized anxiety disorder.-Continue supportive care from his psychiatrist, (regrettably I have never had occasion to receive any correspondence from psychiatry nor speak with them).-Continue supportive therapy.-While I am not sure it is optimal, will continue clonazepam per psychiatry, currently 2 mg BID and continue nocturnal trazodone 100 mg. He reports that his psychiatrist increased trazodone to 200mg, need to clarify. He reports he talks with a therapist weekly for 45 minutes which helps . Unclear why the patient has not been on more classic anxiolytic antidepressants, will try to obtain records from psychiatrist.- Referral to specialist placed.- Consider trying alternative psych regimen. Related to ANTONY (generalized anxiety disorder) Low testosterone in the context of methadone treatment. Has since stopped methadone treatment. Previously followed by endocrinology and was on testosterone replacement. He has been seen by urology. PSA has been acceptable, last PSA level 0.1.-Monitor for changes in methadone treatment or substance abuse. 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 Last A1c in hospital was 9.6%.-Continue current diabetes medications.-Consider Endocrinology referral for improved glucose control. Related to halfway (current) use of oral hypoglycemic drugs Patient with bilater al cataracts. Last ophthalmology note from 2018. At that time there was no significant impact on vision and there was no evidence of diabetic retinopathy or macular degeneration OU on fundoscopic exam.-Referral placed for ophthalmology consult d/to T2DM, needs annual exam. Related to Type 2 diabetes mellitus with diabetic cataract, unspecified whether custodial insulin use Most recent labs [facility] hospitalization 06/26/21 with eGFr 85, Cre 1.0, BUN 13, Glucose 251, A1C 9.6%. Glucose was 460 on presentation to ED. History of proteinuria, on Lisinopril 10mg PO daily. Labs drawn today, will review once available.-Continue diabetic medication management.-Avoid nephrotoxic medications.-Consider Endocrinology consult for improved management of DM. Related to Type 2 diabetes mellitus with stage 2 chronic kidney disease, without long-term current use of insulin Takes Glipizide, Aman uvia and Metformin for T2DM and Gabapentin 600mg TID for neuropathy. He doesn't think there is much improvement with taking Gabapentin and sometimes skips doses d/to this. He does not take Gabapentin at the same time as his Trazodone because it makes him feel unsteady on his feet. There is mild swelling of the dorsolateral aspect of the left foot, no erythema, or open areas of skin. Reports numbness and poor sensation in the feet bilaterally, especially the bottom of the foot. Toenails are clean and trimmed, calloused medial great toes bilaterally.-Continue medical management of DM.-Consider d/c Gabapentin if continues to have no benefit.-Suggested that he join [facility] , referral placed. Related to Type 2 diabetes mellitus with diabetic polyneuropathy, without long-term current use of insulin Currently takes Simv astatin 10mg PO qHS. Most recent labs from hospitalization 06/26/21 with Chol/HDL/LDL/Tri 189/50/105/172. Labs drawn today, will review once available.-May consider increasing statin dose depending on lab results. Related to Hyperlipidemia, unspecified hyperlipidemia type Echocardiogram with normal LV size and normal LV wall thickness. Low normal LV systolic function. The left ventricular ejection fraction is 50-55%. There are no definite regional wall motion abnormalities. Right ventricle is normal in size and function. Left atrium is mildly dilated. Pulmonary artery pressure estimation is within normal limits.Previous EF with 44% on stress test in 2008, but with no clinical manifestations of heart failure. Etiology of the depressed EF unclear, takes Lisinopril for proteinuria.- Continue Lisinopril 10mg PO daily.- Monitor for heart failure symptoms. Related to Cardiomyopathy, unspecified type BP well controlled a t today's visit 118/84. Med list reflects daily dose of 12.5mg daily, patient reports he has been taking 10mg daily. Last note provider was planning to d/c Lisinopril, unsure if this happened. Will d/c the 2.5mg Lisinopril to reflect what he is actually taking. -Continue to monitor BPs.-Continue Lisinopril 10mg PO daily. Related to Hypertensive chronic kidney disease with stage 1 through stage 4 chronic kidney disease, or unspecified chronic kidney disease Follow prescribed diet plan. Rel ated to Type 2 diabetes mellitus with diabetic cataract, with long-term current use of insulin Check blood sugar twice a day. R elated to Type 2 diabetes mellitus with diabetic cataract, with long-term current use of insulin Increase physical activity. Rela fidel to Type 2 diabetes mellitus with diabetic cataract, with long-term current use of insulin Stop smoking. Related to Type 2 diabetes mellitus with diabetic cataract, with long-term current use of insulin Reinforced the impor tance of rehab. Will make any future referrals needed. Related to Weakness of both legs The etiology does no t seem to be orthostasis, [employer] issues or any other neurologic problem. He has been taking klonopin for years and does not take it with Gabapentin. He is currently taking oxycodone but was not on it when he fell. I think the problem is weakness---from lack of exercise because of Covid and hypogonadism. Will refer him back to rehab---and I told him he needs to go---(Hx of missed visits) Related to Multiple falls D/Cing Lisinopril Related to Hyp otension, unspecified hypotension type Saw neurology about this. They want a home sleep study--authorized. Related to Insomnia, unspecified type He had stopped Gabapentin--restarting--600mg TID Related to Type 2 diabetes mellitus with diabetic polyneuropathy, without long-term current use of insulin 4th and 5th on right ---quite tender. Rx-oxycodone #21 No refill---he was told --no refills. Will re-examine his lungs next week. Related to Closed fracture of multiple ribs of right side, initial encounter Etiology unclear. Ne uro exam not particularly remarkable. There is some weakness but this is chronic. The etiology of the acute weakness is perplexing and not obvious. He barely passed his FAST test. Will bring him back next week and re-eval. Related to Multiple falls Takes Gabapentin, Gl ipizide, Januvia and Metformin. Plantar sensory was normal today. However, he states that he feels numbness on some days.1. Wound monitoring and education for wound care provided. Related to Type 2 diabetes mellitus with diabetic polyneuropathy, unspecified whether custodial insulin use [facility] on 05/02/21 after cutting the top of his right foot while moving a bed frame injury occurring 05/01/21. In ED, wound was described as being 2cm laceration on the dorsum of the foot with no missing tissue or skin flap. It was cleaned with peroxide, used Dermabond and hemostasis was achieved. Today, next to the area that is closed and healed with Dermabond, there are two open areas on the dorsum of the foot. The first area, 2.7cm round, lateral and distal to the laceration. The second area is .7cm round, medial and proximal to the laceration. There is erythema noted around both areas, not warm to the touch, is not looking infected at this point. Etiology is likely opened blisters caused by ambulating with tightly wrapped bandage causing friction to the dorsal area around the previous laceration.1. Wound dressed with calcium alginate and allevyn.2. To follow up for assessment in [facility] on 05/09. Related to Friction blister Starting low dose li sinopril for renal protection Related to Type 2 diabetes mellitus with stage 2 chronic kidney disease, without long-term current use of insulin Starting low dose li sinopril for renal protection Related to Chronic kidney disease, stage 2 (mild) prev right ureteral stone--post laser Related to History of kidney stones GFR-74 Stage 2 CKD W ill routinely follow. Hx of proteinuria Minimizing nephrotoxic meds. Related to Type 2 diabetes mellitus with stage 2 chronic kidney disease, without long-term current use of insulin GFR-74 Stage 2 CKD W ill routinely follow. Hx of proteinuria Minimizing nephrotoxic meds. Related to Chronic kidney disease, stage 2 (mild) Prev treated with Me thadone and weaned off. Remains in remission. Will draw occas drug screen. No suspicious behaviors. Related to Opioid dependence, in remission Not using CPAP Not l ikely that he needs it. Related to Moderate obstructive sleep apnea Mult etiologies----t esticular, chest, inguinal, psych, subst abuse. Takes Gabapentin. Related to Chronic pain syndrome Has improved. MOCA-2 04/19 Etiology of prev impairment not clear. Related to MCI (mild cognitive impairment) None recently---No prescription meds. Related to Chronic migraine without aura, intractable, without status migrainosus 90% of his ROM has returned. Rel ated to Nontraumatic incomplete tear of rotator cuff, unspecified laterality States he ss no long er taking Metadone. Drug screen pending. Related to Opioid dependence on agonist therapy Patient reports use of cannabis with some regularity. Very difficult to know if this is helpful or harmful to his mental health and overall cognitive functioning. -Patient is aware of the potential downsides. He will have to decide on readiness to stop His MOCA is WNL. Drug screen pending. Related to Cannabis abuse, uncomplicated Sees a therapist. Ta kes Trazadone but it is not being used to tx depression. Related to Major depressive disorder, recurrent, moderate Takes Klonopin The a nxiety is improved. Related to ANTONY (generalized anxiety disorder) Hg-14.4----Resolved Related to A nemia, unspecified type Takes Flomax and Finasteride Rel ated to Benign prostatic hyperplasia with lower urinary tract symptoms, symptom details unspecified UA pending Related to Micro scopic haematuria Upcoming ureteroscopy with laser Related to Right ureteral stone Second herniorraphy January 2021--doing well. Related to History of hernia repair Second herniorraphy January 2021--doing well. Related to Personal history of other diseases of the digestive system Most recent C-T unremarkable Rel ated to Abnormal finding on imaging of liver Hep C antibody posit cehtan, viral load undetectable. Reportedly never treated.-No specific action indicated Related to History of hepatitis C Low testosterone in the context of methadone treatment. He is followed by endocrinology and is on testosterone replacement. He has been seen by urology. 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 Related to halfway (current) use of oral hypoglycemic drugs Bilateral. Last opth almology visit-2018. A referral was made in 2019--opthalmology office behind in visits (Dr. Vazquez). No visual complaints. Related to Type 2 diabetes mellitus with diabetic cataract, without long-term current use of insulin GFR has improved to 90. Prev took Lisinopril--had to be stopped because of hypotension. Related to Diabetes mellitus with proteinuria GFR has improved to 90. Prev took Lisinopril--had to be stopped because of hypotension. Related to Proteinuria, unspecified Takes Gabapentin, Gl ipizide, Januvia and Metformin. Plantar sensory was normal today. However, he states that he feels numbness on some days. Related to Type 2 diabetes mellitus with diabetic polyneuropathy, without long-term current use of insulin LDL- 68 Takes Zocor. Will continue current dose. Related to Hyperlipidemia, unspecified hyperlipidemia type Apparently resolved- --sitting pulse today-72 Related to Bradycardia Last EST-2008--EF-44 %. No CHF symptoms. Not seeing cardio routinely. Echo pending. Lisinopril just D/C'ed. Related to Cardiomyopathy, unspecified type Sitting BP 96/66. Hi s BP's have been low for many months---will D/C his only BP med--Lisinopril. Related to Hypertensive chronic kidney disease with stage 1 through stage 4 chronic kidney disease, or unspecified chronic kidney disease Referring to rehab Related to We akness of both legs Post op pain. Sugges fidel he take ibuprofen empirically TID with food. He was given #12 ocycodone post op. Will give him an additional #21---oxycodone 5mg TID--prn NO more refills Related to Right inguinal pain Bilat shoulder pain- --ordering x-rays He has been seen by rehab---instructed to restart resistance straps Related to Arthralgia of shoulder, unspecified laterality Continue Mehtadone Related to Op ioid dependence on agonist therapy Bilat shoulder pain---ordering x -rays Related to Pain in left shoulder Bilat shoulder pain---ordering x -rays Related to Pain of both shoulder joints Short course of Motrin Related t o Primary osteoarthritis, unspecified site Most likely from the bialt ing hernias---surgery does not want to do anything---One was fixed recently Related to Abdominal pain, unspecified abdominal location Worse post fall Related to Chron ic low back pain without sciatica, unspecified back pain laterality Worse post fall Related to Other chronic pain The patient has some what variable reports of his lower urinary tract symptoms. I called [facility] neurology to clarify if he had an appointment. They told me that he has been fired from the practice for no shows.-We will refer to urology group of [facility] Related to Post-void dribbling See BPH Related to Benig n prostatic hyperplasia with post-void dribbling Patient with long hi story of abdominal pain predominantly in the right lower quadrant. It has long been somewhat unclear as to the etiology. He was known to have a hernia and had hernia repair some weeks back. He had a recent fall with minor trauma to the right groin, seen by surgery and all is felt to be well. He still reports moderate pain although seemingly better. I am point of fact wonder if the hernia was the sole generator of his pain.-No medication changes Related to History of hernia repair Patient with long hi story of abdominal pain predominantly in the right lower quadrant. It has long been somewhat unclear as to the etiology. He was known to have a hernia and had hernia repair some weeks back. He had a recent fall with minor trauma to the right groin, seen by surgery and all is felt to be well. He still reports moderate pain although seemingly better. I am point of fact wonder if the hernia was the sole generator of his pain.-No medication changes Related to Personal history of other diseases of the digestive system He had a number of C Ts at [facility]. There was some question of minor abnormality of liver. Ultrasound in June 2019 showed what appeared to be focal sparing. He had a CT of abdomen in the past several months at [facility], that was unrevealing.-I have tried to offer him reassurance-He will be seeing GI in the near future, will defer to them. They have any additional thoughts Related to Abnormal finding on imaging of liver Long-standing, diffi culties with cognition. The cause is somewhat indeterminate. He did have significant obstructive sleep apnea in the past. He saw neurology in follow-up and they will consider repeat PSG once their lab is open. They repeatedly put him on medications I think are related by his then I have asked him to refrain in the past. Specifically cyproheptadine which is quite anticholinergic.-I have told him this, he has not been physically invested in stopping at the moment.-Await PSG Related to MCI (mild cognitive impairment) DM:Control is not op timal however has improved fairly significantly. His care should've an primarily by his endocrinology team. At his last visit they were quite satisfied with his progress.-Continue metformin thousand milligrams twice daily, Januvia 100 mg daily,-Appointment with ophthalmology verified, in the interim I've told him that he can access optometry-Follow A1c periodically, again endocrinology doesn't as well as I will not duplicate her effort-Continue lisinopril 10 mgRe proteunria:mild. Continue ACEi Related to Diabetes mellitus with proteinuria Mild, would continue lisinopril Related to Proteinuria, unspecified His diabetes appears to be under somewhat better control. He does not discuss specific numbers however A1c was down to 7.9 by dental associate on last check.Metformin 1000 mg twice daily Januvia 100 mg dailyNeuropathy reasonably well controlled with Gabapentin 1200mg twice daily times daily. Needs meticulous attention to feet/inspection due to poetntial for injury Related to Controlled type 2 diabetes mellitus with diabetic polyneuropathy, without long-term current use of insulin Reevaluation for col onoscopy scheduled in May. He is on a reasonable bowel regimen. I have sent a renewal of his MiraLAX to the pharmacy. Related to Constipation, unspecified constipation type He is up-to-date on immunizationsPlan is for repeat GI consultation for colonoscopyHe has PSA checked regularly due to treatment with testosterone-Would consider DEXA scan given hypogonadism-I am skeptical regarding indication for low-dose CT scanning Related to Encounter for health maintenance examination Patient with long hi story of constipation. Unclear how much of it is related to his methadone. He had been trialed on MiraLAX, Metamucil and others. He uses rather sporadically and inconsistently and as such is very hard to gauge efficacy. He reports he is moving his bowels every 2-3 days. He was referred for colonoscopy however this was deferred until after he could resolve his constipation issues.-Favor re-referral to GI Related to Constipation, unspecified constipation type large callus on righ t great toe.-Podiatry follow-up when possible Related to Callosity Had significant slee p apnea and uses Pap therapy in the past. Was told that he had some residual sleep apnea but no longer required CPAP. I have significant concerns for a number of reasons including his cognitive impairment and to lesser extent his rhythm issues.-I have been urging neurology to consider repeat testing however have not been able to get a sense of their thoughts-I will try to urge him again, if not successful may consider sending to [facility] if he is agreeable Related to Moderate obstructive sleep apnea OLd CXR ? suggestion of COPD. Marijuana smoker, no tobacco. I am not aware of PFTs being done. Clinically no overt manifestation.-No meds-Consider PFTs Related to Chronic obstructive pulmonary disease, unspecified COPD type Patient with chronic pain of low back with degenerative changes. He also complains of chronic, intermittent right testicular pain/inguinal pain for decades. He has on occasion complained of chest pain, again dating back decades and without change. More recently he has had right inguinal pain that may be related to hernia. Complex history of psychiatric comorbidities, substance use/abuse and treatment for same-No immediate change in medications-Continue gabapentin Related to Other chronic pain MRI September 2019 emilia ws slight worsening of degenerative changes from 2012. He has low back pain although that has been less of a prominent complaint of late-No very specific action-Continue to remain mobile-Unclear to what degree gabapentin is helpful here Related to Spondylosis Patients with obviou s amnestic and executive dysfunction. It is unclear to me if there is a firm diagnosis of attention deficit disorder although certainly it seems likely. He was tested by neuropsychology in 2013 and again in 2018. He actually improved over that time period which is thought to be related to treatment of LE. The exact cause of this is unclear. He has substance abuse history in addition to the LE. There is very vague report of remote traumatic brain injury although the specifics and accuracy of this are entirely uncertain.He does struggle quite significantly to keep track of many aspects of his life. I think much of his anxiety and dysphoria are as a result of this-Would encouraged to abstain from cannabis-I have asked his neurologist to consider repeat polysomnogram on a number of occasions but have not heard back. May need to consider alternate venue of care although he has not been anxious to do so.-While he is not at all enthusiastic about it, may need to consider tapering gabapentin Related to MCI (mild cognitive impairment) None recent, he has not described highly specific history, as such accuracy of this is uncertain-No specific intervention Related to Migraine without status migrainosus, not intractable, unspecified migraine type Clinically arthritis of the hip, knee and back.-No very specific treatment-Patient is encouraged to avoid nonsteroidals, he is nonspecific with regard to how much he uses, with certainly discourage it preoperatively Related to Primary osteoarthritis involving multiple joints Partial tear of righ t supraspinatus. No specific infection at the moment Related to Incomplete tear of right rotator cuff, unspecified whether traumatic Patient with a histo ry of opioid abuse although he often suggest that the methadone was started for chronic pain. He reports that he has been tapered off methadone, I have yet to reach methadone clinic to confirm this although it seems probable.-Risk of relapse significant-We will need to be somewhat judicious with postoperative pain management Related to Opioid dependence on agonist therapy Patient reports use of cannabis with some regularity. Very difficult to know if this is helpful or harmful to his mental health and overall cognitive functioning. I have significant concerns about its effect his cognitive functioning.-Patient is aware of the potential downsides. He will have to decide on readiness to stop Related to Cannabis abuse, uncomplicated He endorses somewhat worsening mood. As best I can tell, unless there is additional medication being prescribed by psychiatry, he is not on any antidepressant aside from the trazodone which is not being used currently for antidepressant properties.-He continues to see his therapist, remotely-I have urged him to reach out to his mental health treatment team and discuss the possibility of changes Related to Major depressive disorder, recurrent, moderate Patient with enormou sly complex amalgam of cognitive impairment, substance dependence, mood disorder, anxiety disorder. His anxiety disorder is most consistent with generalized anxiety disorder.-Continue supportive care from his psychiatrist, (regrettably I have never had occasion to receive any correspondence from psychiatry nor speak with them).-Continue supportive therapy.-While I am not sure it is optimal, will continue clonazepam per psychiatry, currently 1 mg 4 times a day-Continue nocturnal trazodone 100 mg-I am not entirely clear why the patient is not on more classic anxiolytic antidepressants-I will try to see if there is any way of reaching psychiatry Related to ANTONY (generalized anxiety disorder) Hep C antibody posit chetan, viral load undetectable. Reportedly never treated.-No specific action indicated-We will be seeing GI, will see if they have any commentary-Hap A/b immune Related to History of hepatitis C Fairly mild anemia o f somewhat indeterminate etiology. Not terribly iron deficient. Renal function is preserved. No convincing evidence for nutritional deficiency. Testosterone is replaced and therefore unlikely to because of anemia.-Repeat visits to GI for colonoscopy once recovered Related to Anemia, unspecified type Probability of it be ing related to his hypogonadal state however, is also on multiple psychoactive that may be contributory. Difficult to exclude any vasculopathy as component-I have not explicitly addressed this with him-He sees urology-Endocrinology notes reflect that he has gotten samples of PDE 5 medication Related to Erectile dysfunction due to diseases classified elsewhere Patient with prostat ic hypertrophy, normal PSA, significant lower urinary tract symptoms. I spoke with urology about a year ago as they had made mention of possible intervention. There were not particularly of the opinion that he needed the intervention that time. It does not appear that symptoms have progressed-Urology follow-up at some future date after his recovered from his inguinal hernia repair.-Watch for retention postoperatively Related to Benign prostatic hyperplasia with nocturia Patient with prostat ic hypertrophy, normal PSA, significant lower urinary tract symptoms. I spoke with urology about a year ago as they had made mention of possible intervention. There were not particularly of the opinion that he needed the intervention that time. It does not appear that symptoms have progressed-Urology follow-up at some future date after his recovered from his inguinal hernia repair.-Watch for retention postoperatively Related to Nocturia It is very rare that he has incontinence Related to Urgency incontinence This is likely due t o a combination of diabetes, passed significant obesity, perhaps viral hepatitis. He does not have significant liver dysfunction.-May need episodic monitoring with ultrasound to exclude development of HCC, which is a theoretical risk of-Controlled diabetes/obesity Related to Steatosis of liver Due to frequent comp laints of abdominal pain he has had many CTs of abdomen. There were 2 in April of last year. 1 suggested some previously unseen irregularity of the liver. In most cases there is focal steatosis. He had a CT several days ago in the [facility] ER with essentially negative findings. Right upper quadrant ultrasound done in June of last year to follow-up abnormal CT showed peripheral left hepatic lobe 2.1 cm hypoechoic focus without internal vascularity that was thought to represent an area of focal fatty sparing. No suspicious lesions were seen.-I do not think this is specifically requires follow-up however we will defer to GI I will asked to see against an initial colonoscopy more so than this Related to Abnormal finding on imaging of liver The last ophthalmolo gy noticed she is from 2018. He had bilateral cataracts. Difficult to see if they progress. He reports that his glasses don't serve him well which may reflect something other than glasses.-Refer back to ophthalmology Related to Combined forms of age-related cataract, bilateral Patient has upper de nture only. Apparently had lower denture but was lost. He saw dental in 2018 with a site mention of his past jaw fracture and that he had difficulty wearing the lower denture. He is interested in the lower denture-Refer back to dental Related to Edentulous Most recent vitamin D level is from endocrinology and was 41 in 2019. Patient is on 2000 units of vitamin D daily-We will continue same-No routine monitoring of blood levels Related to Vitamin D deficiency Low testosterone in the context of methadone treatment. He is followed by endocrinology and is on testosterone replacement which has produced quite positive results for him. He has been seen by urology. 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 The last ophthalmology note I see is from 2018-Refer back to Dr. Vazquez, although I believe referred him last time and simply has not come to fruition. Related to Type 2 diabetes mellitus with diabetic cataract, without long-term current use of insulin See DM with proteiuria Related t o Proteinuria, unspecified Most recent creatini ne was actually in the ER several days ago. EGFR was estimated greater than 60. Creatinine was 1.09. She has not historically had EGFR under 90. He does have mild proteinuria most recently in September. He has seen nephrology although not for this per se.-Continue DENNISE inhibitor to the degree tolerated-Follow urine microalbumin-Control diabetes Related to Diabetes mellitus with proteinuria Patient was somewhat long-standing diabetes mellitus. He at the time was significantly more obese than he is currently. He has lost approximately 100 pounds. In the past he was on insulin however, more recently has been on oral hypoglycemic agents. Regrettably, given his cognitive challenges and use of multiplicity of pharmacies as well as consultants changing medications, there was an ambiguity with regard to the medications he is on. Based upon review of notes it appears that he is currently being on metformin and Januvia and off glipizide.His hemoglobin A1c earlier in the year was 10.8 however, most recent in endocrinology office on 01/22 was 7.9. He reported to endocrinology that he was having hypoglycemia with the glipizide and therefore it was stopped.-Likely to need medication review in his home-Continue fingersticks-Goal A1c is close to 7 possible in my mind however will defer to endocrinology-He is due to see ophthalmology, will try to facilitate-He sees podiatry with fair regularity-Continue Dennise inhibitionWith regard to neuropathy, he clearly endorses what sounds to be neuropathy. He is on fairly high dose gabapentin, primarily from his neurologist. Neuropathy as documented by his dental associate. Podiatry documents loss of peripheral sensation. 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 The patient is on Zocor 10 mg.-In the context of his comorbidities and think this is reasonable.-No immediate plan to change treatment Related to Pure hypercholesterolemia Patient with a long history of bradycardia. He has never been symptomatic as best I can tell. He was significant with bradycardic when induced for planned hernia surgery. Stress test yielded robust chronotropic response. Holter was done with results above. He is on nothing that's overtly negatively chronotropic. TFTs nl, most recently in [facility] ER days ago-He will see cardiology tomorrow, will defer further workup and recommendations to them. Related to Bradycardia Patient with EF of 4 4% on stress test in 2008. That having been said, he has no clinical manifestations of heart failure. The etiology of that depressed EF is unclear to me. He is on DENNISE inhibitor although my mind more for proteinuria then for heart failure/current myopathy. I do wonder if this is in the context of untreated LE. She has not had echocardiogram, to my knowledge.-He is seeing cardiology, I would defer to them. In the absence of clinical manifestations, diuretic requirement etc. I would not consider this an active challenge. His baseline exercise tolerance is excellent, although he has been more fatigued of late Related to Cardiomyopathy, unspecified type While he may well an d had very significant hypertension at one point, the duration of the time I've been getting from his hypertension has been very well-controlled on fairly minimal medications. He is currently on lisinopril 10 mg, which in my mind is more for his proteinuria than hypertension per se. His blood pressure today was actually on the low side-Continue to monitor blood pressure-May need to actually decrease his lisinopril- Related to Essential hypertension Patient is seen toterra y for several indications, amongst them preoperative risk stratification for upcoming bilateral inguinal hernia repair. The patient has had long-standing predominantly right-sided inguinal pain. Imaging has suggested bilateral hernias. Tentative plan is to proceed with bilateral inguinal hernia repair on the . Of note, the patient was taken to the OR several months ago however case had to be aborted before began due to bradycardia.The patient will be seeing cardiology tomorrow for their input in advance of his surgical procedure. Of some concern is that he has been feeling weak of late. His blood pressure is on the low side although he has had similar blood pressures in the past. He was seen in the [facility] emergency room of the weekend. He was noted to have fairly significant hematuria (unclear to me if microscopic). He is not anemic. His thyroid function is preserved. By way of antihypertensives he is on lisinopril 10 mg although he is on tamsulosin and many psychoactive that could produce some degree of low blood pressure. There is nothing to suggest adrenal insufficiencyIt is unclear whether his oral intake is decreased in the context of pandemic. He reports adequate access to food insulin has access to fluids. It is unclear if any of his malaise involves coming off methadone.With the exception of his bradycardia, I do not see any clear contraindication to proceeding with the surgery as planned. He has a history of depressed EF on stress test in 2008 however, clinically has not manifest heart failure. He has a history of obstructive sleep apnea which he was deemed it to no longer need treatment for once he lost weight however, I have advised retesting in the face of his cognitive difficulties.I will defer to Dr. Ho and anesthesia with regard to medications. If aspirin must be held I do not see any reason it can't be. I would advise holding his oral diabetic agents the morning of his surgery.I have ordered CBC, UA and Chem at [facility] for tomorrow. I will defer to cardio re: EKGWould defer to anesthesia post op however, given LE hx would be cautiousPost op pain management will be challenging. Hx opioid dependence. By his report (Not yet confirmend) just came off methadone. No clear answer but would balance adequate anlgesia vs risk of recrudescent dependence Related to Bilateral recurrent inguinal hernia without obstruction or gangrene Tiny, resolved lesio n to his right proximal thigh that he really express the contents of. This may have been folliculitis or a small abscesses/comedone. 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 He had a very large weight loss. He was taken off CPAP. Given his overall state I have concerns that he may require CPAP. I have written to his neurologist to does sleep studies and asked that she reconsider sleep study. I heretofore had not heard back regarding plan Related to Moderate obstructive sleep apnea Patient sees podiatr y regularly and has them trimmed as needed Related to Callosity Accuracy of this sebas gnosis is unclear. He smokes marijuana but not cigarettes. This is present in previous medical records. I do not see objective testing. He does not manifest as such.-No additional testing and no specific interventions at this juncture Related to Chronic obstructive pulmonary disease, unspecified COPD type Patient with what se ems to be some degree of chronic arthritic pain to his back, lesser extent lower extremities. He is very active and walks long distances-No specific action-I do not personally prescribed naproxen to him given his comorbidities. Related to Primary osteoarthritis involving multiple joints The position of this diagnosis is unclear. He describes headaches that do not sound to be migrainous. He is followed by neurology. He is on gabapentin. He is not on abortives aside from NSAIDs.-No change of medication Related to Migraine without aura and without status migrainosus, not intractable The patient is follo wed by a psychiatrist. Per my medication list but does not appear is on a conventional antidepressant-Continue psychoactive as per psychiatry-Ideally, would like updated med list from them Related to Major depressive disorder, recurrent, moderate Patient with signifi cant anxiety disorder. His psychiatrist provides her with clonazepam among other medications. He isn't has no for sleep. He was receiving gabapentin from his neurologist I believe for neuropathy. Less there is data deficit, to bit unclear why he is not on more conventional antidepressants-Ongoing therapy and psychiatric visitation-We'll strive to clarify why he is not on a traditional antidepressant Related to ANTONY (generalized anxiety disorder) Patient with moderat e anemia, heretofore somewhat indeterminate etiology. Of note he does have some degree of chronic constipation which likely relates to the methadone. He has been seen by GI. Given his anemia, chronic abdominal pain and constipation they will perform colonoscopy Related to Anemia, unspecified type May well be related to his diabetes however, low testosterone may be contributory as well.-I have not explicitly discussed this issue with him. He has made no request to me personally for PDE 5 agent.-May discuss going for if he so desires however, in general he has had other concerns Related to Erectile dysfunction due to diseases classified elsewhere Prostatic hypertroph y. Of note he is on testosterone replacement. He is followed by urology and endocrinology.-Monitor PSA-Continue finasteride and tamsulosin Related to Prostatic hypertrophy Patient had microsco pic hematuria without definitive diagnosis. He was seen by urology and had cystoscopy as well as CT urogram. He does have a nonobstructive stone. As I had concerns regarding the possibility of hematuria loin pain syndrome I had him seen by nephrology. They did not feel that diagnosis is likely.-Monitor UA-He is followed by urology with regularity Related to Microscopic haematuria Patient has had righ t lower quadrant pain that is fairly long-standing. He has had extensive evaluation by multiple CTs. He has seen surgery number of times. Clinically was not her impression that this was the cause of his pain. Resolution of his constipation did not produce resolution of his pain. I am in the process of evaluating him for a highly unlikely L4 radiculopathy. Per last note from surgery, they do intend to proceed with herniorrhaphy.The absence of opioid pain management has become a bone of contention. The source of his pain remains somewhat unclear. At one point the ER attributed to kidney stones. Despite the fact that he is on methadone he was given some tablets of opioid. I renewed that one time and I had occasion gave 2 tablets in the event of catastrophic pain to try to avoid ER visitation. I explained to him that irrespective of his use of methadone or past difficulties with opioid pain medications, I would not treat abdominal pain of unknown etiology that is chronic with opioids. He was not particularly pleased with this. Regrettably there are very few good options. He is not currently interested in Suboxone.-Await surgery plan-We will await MRI of L-spine Related to Bilateral recurrent inguinal hernia without obstruction or gangrene Likely related to di abetesity. Again, the degree of ambiguity regarding hepatitis C. He has antibody-positive however aren't a is undetectable-Monitor right upper quadrant with ultrasound-Control diabetes and ideally weight Related to Steatosis of liver Antibody positive wi th negative RNA suggesting either complete clearance or false positive given his history of steatosis needs monitoring anyhow-Periodic ultrasound of right upper quadrant Related to Chronic hepatitis C without hepatic coma Has dentures, unclea r to me to what extent he uses them consistently however, I believe he uses at least half the pair Related to Complete edentulism, unspecified edentulism class Patient with low maikel tosterone on the basis of hypogonadotrophic hypogonadism. Again, my strong suspicion is this relates to methadone. LE can contribute to this as well. 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 Patient is followed by ophthalmology who are monitoring his cataracts as well as monitoring for background retinopathy Related to Type 2 diabetes mellitus with diabetic cataract, without long-term current use of insulin Patient with long-st anding diabetes that historically has not been exactly well-controlled. In the past he had morbid obesity. With supplementation of testosterone, per patient, weight decreased dramatically. He is currently on oral medications only. He is managed primarily by his dental associate-Update A1c/microalbumin-He is up-to-date with regard to ophthalmology, due to follow-up in the next month or so-Sees podiatry often-On DENNISE inhibitor-Could consider SGLT 2 agent--Continue metformin and glipizide Related to Type 2 diabetes mellitus with diabetic neuropathy, without long-term current use of insulin Does not appear to h ave obvious peripheral arterial disease in lower extremities however does have erectile dysfunction. Difficult to say if this is related primarily to diabetes versus hypogonadism which in turn may relate to the methadone and/or sleep apnea-Address vascular risk factors, continue aspirin, statin, blood pressure control Related to Type 2 diabetes mellitus with other circulatory complications Difficult to know pr ecisely the nature of his hyperlipidemia is again to us on a statin. His lipid panel was well controlled.-For now would continue Zocor at current dosage Related to Hyperlipidemia, unspecified hyperlipidemia type Does not clinically manifest cardiomyopathy however, EF was 48 on stress test roughly a decade ago.-Address risk factors such as hypertension, lipids-Monitor for symptoms-Could consider updating echocardiogram however unclear that at this point it would alter treatment Related to Cardiomyopathy, unspecified type Blood pressure is we ll-controlled on lisinopril alone.-Continue lisinopril 10 mg Related to Essential hypertension The precise nature o f his pain is quite unclear. There is some pain that is likely arthritic. There is not obvious painful neuropathy. He does have pain in his feet, often after walking long distances. He cannot definitively exclude a painful neuropathy component. He is on gabapentin with some improvement in pain. He has had some right lower quadrant pain, superimposed on previous right inguinal pain. Again, this worked up fairly extensively. Surgery may take him to the OR. I am in the process of evaluating him for L4 radiculopathy. At the moment there is no definitive answer which has been profoundly frustrating to him often resulting in him lashing out a bit.-Continue the current gabapentin-As it had been some duplication I have asked the neurologist to the prescribing to us, I'm uncertain if that will come to fruition-Await MRI Related to Other chronic pain He has had neuropsyc hiatric testing on 2 occasions. Most recent testing showed some improvement. In the past a speculated it was from untreated sleep apnea, potentially substances. There was mention of the possibility of a traumatic brain injury however, there is very little to support this. He does have very significant difficulties with concentration as well as difficulties with memory. He is often frustrated and angry-Concerted effort to give information in written form, although he struggles to organize that at times-He May benefit from additional case management which is not necessarily achievable within the confines of this program.-Ongoing follow-up with neurology and psychiatry-I have written a letter to his neurologist asking about repeating sleep study Related to MCI (mild cognitive impairment) While he reported to on-call that he has had chronic headaches, he gives a somewhat different story to me. Headaches are somewhat random. They tend to occur in the morning. They are responsive to OTC analgesics. It is unclear to me if this is related to sleep apnea. Certainly the differential is broad however there are no particular symptoms of great concern.-?PSG a s above-No imaging now Related to Headache disorder Patient is on methad one program. Again he has been given to tablets of morphine in case of extreme abdominal pain. I will not plan on repeating this. Related to Opioid dependence in remission History of LE which reportedly resolved with large weight loss. He has symptoms that could raise the possibility of sleep apnea although certainly with his methadone Central sleep apnea is also a possibility. Hypogonadism could also be complaints of-I have written a letter to his neurologist to his a sleep physician, will defer to her with regards to repeating polysomnogram Related to Obstructive sleep apnea At this point long-s tanding history of right lower quadrant pain. The patient has a far longer history, numbering years, of pain radiating to his right testicle. He previously had surgery in the right lower quadrant. The patient has had many CTs of abdomen, seen by surgery fairly recently, has chronic constipation and has been referred to GI. At the time they're reluctant to do colonoscopy due to his constipation. The constipation is now significantly better.The patient continues to complain of right lower quadrant pain. It is without associated alarm symptoms. There is no clear explanation.-I will recheck to GI, tell them that he is now regular and asked that they schedule his colonoscopy-He has follow-up appointment with surgery-I will give 2 tabs of morphine for extreme emergency-Trial of topical lidocaine patch-MRI of L-spine to exclude L1 radiculopathy Related to Lower abdominal pain Followed by reL B PHImmunizations [place], could debate PCV 13 and ShingrixNo clear need for CT chest? DEXA given hypogonadism, will defer to End[facility] screening as above Related to Encounter for general adult medical exam w abnormal findings See DM Related to Other specified diabetes mellitus with diabetic neuropathy, unspecified -No med changes, ashwin g term benzo use debatable. I will see if conversation with Psych possible Related to Anxiety disorder, unspecified Not on medications, save for the Metahdone which is NOT for painCan consider pain mgmt if needed Related to Other chronic pain Follow TSH, will inv dede Hidalgo he sees Related to Abnormal results of thyroid function studies managed by Endocrine primarily-No change in T replacement Related to Other specified abnormal findings of blood chemistry Currently on oral me ds. Comnanaged by Endocrine. Control mediocre, A1c 8 in December-Follow Q3aOhnsaks BP (acei), lipids, GL-Gxjgk-Xml Related to Type 2 diabetes mellitus with other specified complication Accuracy of this is unclear. Hep C antibody positive however, RNA undetectable at last check. Does not have clear stigmata of liver disease.-Follow platelets, albumin and potentially INR. Related to Liver disease, unspecified Well controlled Related to Mayra mathur (primary) hypertension On therapy Related to Hyper lipidemia, unspecified Clinically stable. W ill consider echo if this changes Related to Cardiomyopathy, unspecified Stable at last check . Due for colonoscopy Related to Anemia, unspecified Stable wt, no difficulty Related to Complete loss of teeth, unspecified cause, unspecified class Not limiting him per se. Walks and bicycles good distances Related to Unspecified osteoarthritis, unspecified site Dalila stable. His c ognition does impact care. No immeddiate solution-I sent letter to Neuro re: Cyproheptadidne-Benzo per psych, will try to discuss-May need to consider PSG to exclude recurrent LE Related to Unspecified mental disorder due to known physiological condition Less dalila Dm relat ed-Ophtho follow up Related to Unspecified age-related cataract No med changesOn met hadone for SA, not pain Related to Other spondylosis, site unspecified Not symptomatic and therefore I have not considered PFTs. -No med changes Related to Chronic obstructive pulmonary disease, unspecified Describes headaches that sound to be chronic daily headache. He is followed by neurology. I have not altered hhi medications at all. Related to Migraine, unspecified, not intractable, without status migrainosus On testosterone replacement. Rel ated to Male erectile disorder Podiatry on Thursday Related to Co rns and callosities Low back - chronic - slightly worse after falling. Follow for now.Ice prn.Refused rehab referral when offered.Instructed to call if worsens. Related to Other chronic pain Suspect muscle strai n or contusion secondary to fall.Continue ice prn.OT offered for modalities such as ultrasound, ice, heat, etc... which he declined at this time.Instructed to call if neck pain persists or worsens, or if he would like rehab referral.Instructed to use non slip mat in the tub. Related to Cervicalgia Assessments Type Assessment Date No Information Goals Health Concern Goal Type Priority Status Date Karthik is at risk for falls related to poor safety awareness, history of falls, Osteoarthritis, chronic pain, and Diabetic Neuropathy. Loco will not experience any falls or fall related injuries through next review. Patient Goal Continued Nicole has chronic pain related to increased LBP and degenerative disc disease . Pain will not interfere with his ability to perform functional and ADL activities Patient Goal Complete Karthik has chronic pain related to hx. fractures, Osteoarthritis, and Neuropathy. Pain will not interfere with current level of functioning of independent with ambulation with use of a cane through to next review Patient Goal Complete Karthik is at risk for functional decline due to decreased AROM right UE and pain with movement Karthik will improve right Ue AROM / strength and report a decrease in pain , to remain independent with ADL / IADL tasks Patient Goal Complete Karthik has altered thought process, requires assistance initiating and completing tasks related to memory Impairment Karthik will live independently in his home with the assistance of and home making services through next review Patient Goal Continued Karthik is at risk for complications related to diabetes. Karthik will not experience any medical complications or hospitalizations, related to diabetes and A1C will be reduced or remain stable, as determined by the provider through next review. Patient Goal Continued
--- OUTSIDE RECORDS SUMMARY | 2025-02-07 12:13 | XMS_ITS | Clinical Summary ---
Author Organization [facility] Address [address] [place] [address] Care Team Providers Care Relay Mechanic Name Role Phone Grady Sanders MD Primary Care Provider [phone] Source Comments PLEASE NOTE, if this patient is a minor, it may be UNLAWFUL to discuss sensitive information that is contained in these records (such as FAMILY PLANNING, MENTAL HEALTH or SUBSTANCE ABUSE) with the minor patient's parent or other person without the patient's specific authorization.[facility] Allergies Active Allergy Reactions Criticality Noted Date Comments Pentazocine Lactate Nausea Only 11/21/2022 Semaglutide Diarrhea 06/18/2022 Medications blood-glucose meter monitoring kitIndication s:Type 2 diabetes mellitus with diabetic polyneuropath y, without long-term current use of insulin ([facility]) Use to check BG 3x/d DX E11.42 Freestyle Lite 1 Each 08/11/20 22 Active fluticasone (FLONASE) 50 mcg/actuation nasal spray Place 2 Sprays in both nostrils once daily 16 g 1 10/17/19 23 Active FREESTYLE LANCETS 28 gaugeIndicati ons:Type 2 diabetes mellitus with diabetic polyneuropath y, without long-term current use of insulin ([facility]) TO TEST BLOOD GLUCOSE 3 TIMES A DAY DXE11.42 Freestyle Lancets 100 Each 11 09/02/20 23 Active ALCOHOL PREP PADS USE DIRECTED 3 TIMES A DAY 100 Each 5 11/25/19 24 Active testosterone enanthate (DELATESTRYL) 200 mg/mL injection Inject 100 mg into the muscle 12/01/19 24 Active azelastine (ASTELIN) 137 mcg (0.1 %) nasal spray INSTILL ONE SPRAY IN EACH NOSTRIL TWICE A DAY 30 mL 1 02/10/20 24 Active hydrocortison e (PROCTOCORT) 1 % rectal cream Place rectally 2 (two) times daily 28 g 1 06/15/20 24 Active testosterone cypionate (DEPO-TESTOST ERONE) 200 mg/mL injection Inject 100 mg into the muscle every 14 (fourteen) days 01/12/20 24 Active pen needle, diabetic 32 gauge x ndle 3 (three) times a day 100 Each 5 08/02/20 24 Active diclofenac sodium (VOLTAREN) 1 % gelIndication s:Chronic right-sided low back pain without sciatica Apply topically 2 (two) times daily 100 g 3 08/31/20 24 Active MISCELLANEOUS MEDICAL SUPPLY MISCIndicatio ns:Type 2 diabetes mellitus with diabetic polyneuropath y, without long-term current use of insulin (HCC-CMS) by miscellaneous route daily Please dispense 1 pair of diabetic shoes with customized foot inserts for lifetime use, hx of diabetic feet and Type II diabetes mellitus 2 Each 1 08/31/20 24 Active FREESTYLE LITE STRIPS stripsIndicat ions:Type 2 diabetes mellitus with diabetic polyneuropath y, without long-term current use of insulin (HCC-CMS) USE TO TEST THREE TIMES A DAY 100 Each 11 09/05/20 24 Active magnesium oxide (MAG-OX) 400 mg (241.3 mg magnesium) tablet Authorized by: SHANNAN REGAN 08/24/20 24 Active traZODone (DESYREL) 100 mg tablet Authorized by: GAIL BLISS 08/25/20 24 Active lidocaine (LIDODERM) 5 % patchIndicati ons:Chronic right-sided low back pain without sciatica Place 1 Patch onto the skin once daily (every 24 hours) Apply 1 patch to the affected area for a maximum of 12 hours, followed by removal for 12 hours. 30 Patch 2 09/30/19 25 Active blood-glucose meter,continu ous (DEXCOM G7 FILLING MACHINE SET UP MECHANIC) mis Use frequently to check blood sugars. Keep device charged and within 20 feet of you. 1 Each 09/30/19 25 Active blood-glucose sensor (DEXCOM G7 SENSOR) aaron Apply new sensor to the back of the arm every 10 days 9 Each 3 09/30/19 25 Active cyclobenzapri ne (FLEXERIL) 10 mg tabletIndicat ions:Chronic right-sided low back pain without sciatica Take 1 Tablet by mouth 3 (three) times daily as needed for muscle spasms 30 Tablet 10/13/19 25 Active docusate sodium (COLACE) 100 mg capsule TAKE 1 CAPSULE BY MOUTH AT BEDTIME NEEDED 28 Capsule 5 10/19/19 25 Active TAB-A-LIANNA 400 mcg tab TAKE 1 TABLET BY MOUTH DAILY 28 Tablet 5 10/19/19 25 Active meloxicam (MOBIC) 7.5 mg tabletIndicat ions:Chronic right-sided low back pain with right-sided sciatica Take 2 Tablets by mouth once daily 90 Tablet 1 10/25/19 25 Active MONOJECT SYRINGE 3 mL 22 gauge x 1 Authorized by: YAMINI EASLEY 09/10/20 24 Active sildenafiL (VIAGRA) 100 mg tablet Take 1 Tablet by mouth once daily as needed for erectile dysfunction 9 Tablet 1 11/15/19 25 Active atorvastatin (LIPITOR) 40 mg tablet TAKE 1 TABLET BY MOUTH DAILY 28 Tablet 3 11/17/19 25 Active cyanocobalami n, vitamin B-12, (CYANOCOBALAM IN) 100 mcg tablet TAKE 1 TABLET BY MOUTH DAILY 28 Tablet 3 11/17/19 25 Active DULERA 100-5 mcg/actuation inhaler INHALE 2 PUFFS BY MOUTH TWICE A DAY 13 g 3 11/17/19 25 Active empagliflozin (JARDIANCE) 25 mg tab Take 1 Tablet by mouth once daily 28 Tablet 3 11/24/19 25 Active gabapentin (NEURONTIN) 800 mg tabletIndicat ions:Chronic right-sided low back pain with right-sided sciatica Take 1 Tablet by mouth 3 (three) times daily for 90 days 90 Tablet 2 01/04/20 25 2024 Active SITagliptin phosphate (JANUVIA) 100 mg tabletIndicat ions:Type 2 diabetes mellitus with diabetic polyneuropath y, without long-term current use of insulin ([facility]) Take 1 Tablet by mouth daily For diabetes 28 Tablet 5 01/13/20 25 Active insulin glargine 100 unit/mL (3 mL) penIndication s:Type 2 diabetes mellitus with diabetic polyneuropath y, without long-term current use of insulin ([facility]) Inject 16 Units into the skin nightly at bedtime 15 mL 5 01/17/20 25 Active oxyCODONE (ROXICODONE) 5 mg tabletIndicat ions:Chronic right-sided low back pain with right-sided sciatica Take 1 Tablet by mouth 2 (two) times daily as needed for pain NEEDED FOR CHRONIC RIGHT-SIDED LOW BACK PAIN!! 20 Tablet 01/26/20 25 Active gabapentin (NEURONTIN) 600 mg tabletIndicat ions:Type 2 diabetes mellitus with diabetic polyneuropath y, without long-term current use of insulin ([facility]) TAKE 1 TABLET BY MOUTH THREE TIMES A DAY 84 Tablet 02/01/20 25 Active metFORMIN (GLUCOPHAGE) 1,000 mg tablet TAKE 1 TABLET BY MOUTH TWICE A DAY WITH FOOD 180 Tablet 02/01/20 25 Active cholecalcifer ol (VITAMIN D-3) 50 mcg (2,000 unit) capsule TAKE 2 CAPSULES BY MOUTH DAILY 56 Capsule 3 02/01/20 25 Active finasteride (PROSCAR) 5 mg tablet TAKE 1 TABLET BY MOUTH DAILY 28 Tablet 3 02/01/20 25 Active insulin glargine 100 unit/mL (3 mL) pen Inject 16 Units into the skin nightly at bedtime 15 mL 1 07/28/20 24 2024 Discontinued(R eorder (E-Cancel Not Sent)) JANUVIA 100 mg tablet TAKE 1 TABLET BY MOUTH DAILY 28 Tablet 3 09/26/19 25 2024 Discontinued cholecalcifer ol (VITAMIN D-3) 50 mcg (2,000 unit) capsule TAKE 2 CAPSULES BY MOUTH DAILY 56 Capsule 3 10/19/19 25 2024 Discontinued finasteride (PROSCAR) 5 mg tablet TAKE 1 TABLET BY MOUTH DAILY 28 Tablet 3 10/19/19 25 2024 Discontinued oxyCODONE (ROXICODONE) 5 mg tabletIndicat ions:Chronic right-sided low back pain with right-sided sciatica Take 1 Tablet by mouth 2 (two) times daily as needed for pain 20 Tablet 12/21/19 25 2024 Discontinued(R eorder (E-Cancel Not Sent)) metFORMIN (GLUCOPHAGE) 1,000 mg tablet TAKE 1 TABLET BY MOUTH TWICE A DAY WITH FOOD 56 Tablet 3 01/04/20 25 2024 Discontinued gabapentin (NEURONTIN) 600 mg tabletIndicat ions:Type 2 diabetes mellitus with diabetic polyneuropath y, without long-term current use of insulin (HCC-CMS) TAKE 1 TABLET BY MOUTH THREE TIMES A DAY 84 Tablet 01/11/20 25 2024 Discontinued JANUVIA 100 mg tablet TAKE 1 TABLET BY MOUTH DAILY 28 Tablet 3 01/11/20 25 2024 Discontinued(R eorder (E-Cancel Not Sent)) oxyCODONE (ROXICODONE) 5 mg tabletIndicat ions:Chronic right-sided low back pain with right-sided sciatica Take 1 Tablet by mouth 2 (two) times daily as needed for pain 20 Tablet 01/11/20 25 2024 Discontinued(R eorder (E-Cancel Not Sent)) insulin glargine-yfgn (SEMGLEE-YFGN ) 100 unit/mL (3 mL) inpn INJECT 16 UNITS INTO THE SKIN NIGHTLY AT BEDTIME 15 mL 1 01/12/20 25 2024 Discontinued(T herapy completed/Not needed) Hospital, Clinic, or Other Facility Administered Medication Ordered Dose Route Frequency Start Date End Date Status testosterone cypionate (Depo-Testosterone) injection 100 mgIndications:Testoster one insufficiency 100 mg IM Every 14 days 02/06/2025 02/05/2026 Acti ve Active Problems Problem Noted Date Diagnosed Date Podiatry visit, routine 11/25/2024 Overview (11/25/2024): 11/23/24: IMPRESSION: 1.Dermatophytosis of nail 2.Bowers of toe 3.Pain in toe of right foot 4.Corns and callosities 5.Pain in toe of left foot 6.Metatarsalgia of both feet 7.Diabetic mononeuropathy simplex (CMS/HCC) 8.Hallux rigidus of left foot 9.Hallux rigidus of right foot 10.Type II diabetes mellitus with peripheral circulatory disorder (CMS/HCC) PLAN: Pt was seen and examined, history reviewed. Discussed with patient regarding proper glucose control, exercise, and diet. Explained to patient proper shoe gear, and importance of daily foot checks. I reviewed neuropathy and why it occurs in diabetics. I educated the patient on proper blood sugar control and the importance of an HgBA1c of less than 7.0%. I reviewed the signs and symptoms of neuropathy with the patient. Pt to return for another evaluation in 3 months. Debridement of mycotic toenails 6-10: Verbal informed consent was obtained from the patient. Greater than 6 nails were aseptically debrided in thickness and length with nail nippers Hyperkeratotic tissue debrided pared with a number #15 scalpel blade x2 Chronic right-sided low back pain without sciati ca 03/15/2024 Panlobular emphysema ([facility]) 04/03/2023 Migraine with aura and witho ut status migrainosus, not intractable 02/20/2023 Food insecurity 01/02/2023 Financial difficulties 01/02/2023 Housing problems 01/02/2023 Lack of access to transportation 01/02/2023 Major depressive disorder, recurrent, moderate ( [facility]) 10/17/2022 Chronic rhinitis 10/17/2022 Type 2 diabetes mellitus wit h diabetic polyneuropathy, with long-term current use of insulin ([facility]) 06/18/2022 Benign prostatic hyperplasia with nocturia 06/18 Hypercholesterolemia 06/18/2022 Diabetic polyneuropathy asso ciated with type 2 diabetes mellitus ([facility]) 06/18/2022 Hypogonadism in male 06/18/2022 Overview (10/26/2023): Follows with boiler setter Panic disorder 06/18/2022 Overview (06/18/2022): Follows with psychiatrist Resolved Problems Problem Noted Date Diagnosed Date Resolved Date Chronic hepatitis C without hepatic coma ([facility]) 07/18/2022 07/18/2022 Overview (07/18/2022): Resolved s/p treatment Essential hypertension 06/18/202206/12 Encounters Date Type Department Care Team Description 02/06/2025 10:40 AM EDT Office Visit Formerly [facility], [address] [place] [phone] Nadiya Hill RN Testosterone insufficiency (Primary Dx) 01/23/2025 2:50 PM EDT Interim Notes [facility] Mobile Unit [address] [place] [phone] 01/23/2025 1:40 PM EDT Office Visit [address] [phone] Antoinette Marquez RN Testosterone insufficiency (Primary Dx) 01/09/2025 11:10 AM EDT Interim Notes [facility] [address] [place] [phone] 01/09/2025 10:40 AM EDT Office Visit [address] [phone] Erika Starks RN Medication management (Primary Dx) 01/06/2025 10:00 AM EDT Office Visit [address] [phone] Sheri Ely NP Chronic right-sided low back pain with right-sided sciatica (Primary Dx) 01/03/2025 9:20 AM EDT Office Visit [address] [phone] Humble Morris FNP Chronic right-sided low back pain with right-sided sciatica (Primary Dx) 01/02/2025 Interim Notes [address] [phone] Geo Peña 12/30/2024 10:00 AM EDT Office Visit [address] [phone] Controlled type 2 diabetes mellitus without complication, with long-term current use of insulin ([facility]) (Primary Dx) 12/26/2024 1:20 PM EDT Office Visit [address] [phone] Ramsey Salazar RN Hypogonadism in male (Primary Dx) 12/23/2024 10:00 AM EDT Office Visit [address] [phone] Overweight (Primary Dx) 12/20/2024 10:00 AM EDT Office Visit [address] [phone] Humble Morris, BUTT MAKER Chronic right-sided low back pain with right-sided sciatica 12/12/2024 2:20 PM EDT Office Visit [facility]ly [facility] [place] [phone] Ramsey Salazar, RN Hypogonadism in male (Primary Dx) 12/12/2024 10:00 AM EDT Telemedicine Visit [address] [phone] Toney Serrano, PharmD Type 2 diabetes mellitus with diabetic polyneuropathy, with long-term current use of insulin ([facility]) (Primary Dx); Medication management 12/02/2024 9:40 AM EDT Office Visit [address] [phone] Harvinder Darling FNP Chronic right-sided low back pain with right-sided sciatica (Primary Dx); Lack of access to transportation; Type 2 diabetes mellitus with diabetic polyneuropathy, with long-term current use of insulin ([facility]) 11/28/2024 10:40 AM EDT Office Visit [address] [phone] Erika Starks RN Encounter for medication administration (Primary Dx); Testosterone deficiency in male 11/17/2024 10:00 AM EST Office Visit [address] [phone] Richard Case PA-C Chronic right-sided low back pain without sciatica (Primary Dx) 11/14/2024 10:40 AM EST Office Visit [address] [phone] Alexia Iverson, DEEPALI Testosterone deficiency in male (Primary Dx) from Last 3 Months Immunizations Immunization Administration Dates Next Due Flu, Multi Dose 0.5 ML 06/16/2017,06/24/2016 Flu, Preservative Free 07/10/2023,2021,05/19/2021,05/09,05/13/2019,05/19/2018,05/10/2018 Hep A, adult 03/11/2012,08/20/2011 INFLUENZA, SEASONAL, INJECTABLE 06/05/2017 INFLUENZA, SEASONAL, INJECTA BLE, PRESERVATIVE FREE 07/14/2015,07/14/2014 INFLUENZA,SEASONAL,INTRADERM AL,PRESERV ATIVE FREE 06/13/2013,07/01/2012 Influenza (FLUZONE), high-do se, trivalent, PF 07/15/2024 PNEUMOCOCCAL CONJUGATE PCV 2 0 (Prevnar) 01/02/2023 PNEUMOCOCCAL POLYSACCHARIDE PPV23 (Pneumovax 23) 11/07/2014 Pfizer COVID-19 (Comirnaty), Mrna, Lnp-s, Pf, Mateusz-sucrose, 30 Mcg/0.3 Ml, 12yr+ 07/15/2024,07/10/2023 [employer] COVID-19 Vac cine Bivalent, (KAY [employer] COVID-19 VACCINE BIVALENT, (KAY CAP 07/18/2022 TDAP 05/14/2021,12/20/2015,06/11/2009 ZOSTER VACCINE, RECOMBINANT (SHINGRIX) ,07/18/2019 Social History Tobacco Use Types Packs/Day Years Used Date Smoking Tobacco: Never Passive Smoke Exposure: Past Smokeless Tobacco: Never Tobacco Cessation:Counseling Given: Not Answered Alcohol Use Standard Drinks/Week Comments Not Currently [...] Orientation Straight 06/17/2022 8: 31 AM PDT Last Filed Vital Signs Vital Sign Reading Time Taken Comments Blood Pressure 122/81 01/06/2025 8:53 AM EDT Pulse 56 01/06/2025 8:53 AM EDT Temperature 36.5 ??C (97.7 ??F) 01/06/2025 8:53 AM ED T Respiratory Rate 16 01/06/2025 8:53 AM EDT Oxygen Saturation 97% 01/06/2025 8:53 AM EDT Inhaled Oxygen Concentration - - Weight 91 kg (200 lb 9.6 oz) 01/06/2025 8:53 AM EDT Height 182.9 cm (6') 01/06/2025 8:53 AM EDT Body Mass Index 27.21 01/06/2025 8:53 AM EDT Plan of Treatment Upcoming Encounters Date Type Department Care Team (Late st Contact Info) Description 02/14/2025 10:40 AM EDT Interim Notes [facility] Unit [address] [place] [phone] 02/14/2025 11:00 AM EDT Office Visit [address] [phone] Toney Serrano, PharmD [address] [place] [phone] 02/14/2025 11:40 AM EDT Interim Notes [facility] [address] [place] [phone] 02/21/2025 10:20 AM EDT Interim Notes [facility], [facility] [phone] 02/21/2025 10:40 AM EDT Office Visit [address] [phone] 02/21/2025 11:20 AM EDT Interim Notes [facility] [address] Unit [address] [place] [phone] 02/22/2025 2:50 PM EDT Interim Notes [facility] [place] [phone] 02/22/2025 3:20 PM EDT Office Visit [facility] [address] [place] [phone] Grady Sanders MD [address] [place] [address] 02/22/2025 3:50 PM EDT Interim Notes [facility] Unit [address] [place] [phone] Health Maintenance Due Date Last Done Comments Anxiety Screening 1959 Medicare Annual Wellness Visit [address] CT Colonography 2004 Colonoscopy 2004 Fecal DNA 2004 Flexible Sigmoidoscopy 2004 Colorectal Cancer Screening 04/01/2024 FIT/gFOBT 04/01/2024 04/01/2023 Falls Prevention 2024 Depression Monitoring 10/15/2024 07/15/2024 , 03/15/2024, 10/16/2023, Additional history exists Lipid Screening 10/16/2024 10/16/2023, 06/23/2022 [id number] ( season) 2025 07/15/2024, 07/10/2023, 07/18/2022, Additional history exists Diabetes HbA1c 04/30/2025 10/31/2024, 11/0 02/2024, 04/28/2024, Additional history exists Serum Creatinine 07/27/2025 07/27/2024, 04/2024, 03/15/2024, Additional history exists Urine Albumin Creatinine Rat io Screening 07/27/2025 07/27/2024, 04/28/2024, 07/10/2023, Additional history exists Retinopathy Screening 08/12/2025 08/12/2024 , 07/22/2023, 12/04/2021 Tobacco Screening 09/15/2025 09/15/2024 Urine Drug Screen 09/15/2025 09/15/2024, 09/15/2024 Diabetes Foot Exam 11/23/2025 11/23/2024, 1 11/05/2022, 04/02/2023, Additional history exists Hypertension Screening (#1) 01/06/2026 Imm-DTaP/Tdap/Td (4 - Td or Tdap) 05/14/2031 05/14/2021, 12/20/2015, 06/11/2009 HIV Screening Completed 06/23/2022 Imm-Zoster, Recombinant Completed 11/21/2022, 07/18 Imm-Pneumococcal 65+ Completed 01/02/2023, 11/07/19 Imm-Influenza Completed 07/15/2024, 06/22, 07/18/2022, Additional history exists Alcohol and Drug Screen Completed 10/27/19, 07/15/2024, 03/15/2024, Additional history exists Dental Examination Discontinued Procedures Procedure Name Priority Date/Time Associated Diagnosis Comments REFERRAL TO PODIATRY Routine 11/23/2024 3:00 AM EST Bowers of toe REFERRAL SCANNED DOCUMENT 11/21/2024 3:00 AM EST HEMOGLOBIN GLYCOSYLATED A1C Routine 10/31/2024 11:07 AM EST Type 2 diabetes mellitus with diabetic polyneuropathy, with long-term current use of insulin ([facility]) DRUG MONITORING, PANEL 8 WITH CONFIRMATION, URINE Routine 09/15/2024 11:04 AM EST REFERRAL TO OPHTHALMOLOGY Routine 08/12/2024 3:00 AM EST Blepharitis of both upper and lower eyelid COMPREHENSIVE METABOLIC PANEL Routine 07/27/2024 9:07 AM EST Type 2 diabetes mellitus with diabetic polyneuropathy, without long-term current use of insulin ([facility]) MICROALBUMIN/CREATININE RATIO, URINE, RANDOM Routine 07/27/2024 9:07 AM EST Type 2 diabetes mellitus with diabetic polyneuropathy, without long-term current use of insulin ([facility]) LIPIDS W RFLX TO DIRECT LDL Routine 10/16/2023 2:23 PM EST Hypercholesterolem ia FECAL GLOBIN BY IMMUNOCHEMISTRY (FIT) Routine 04/01/2023 8:00 PM EDT Colon cancer screening HIV 1/2 AG & AB W/RFLX (4TH GEN) Routine 06/23/2022 2:45 PM EDT Type 2 diabetes mellitus with diabetic polyneuropathy, without long-term current use of insulin ([facility]) from Last 3 Months or Most Recently Relevant to Health Maintenance Results * REFERRAL TO PODIATRY (11/23/2024 3:00 AM EST) 11/23/2024 3:00 AM EST Sheri Ely CLOTH TESTER REFERRAL Edited Result - Final * REFERRAL SCANNED DOCUMENT (11/21/2024 3:00 AM EST) 11/21/2024 3:00 AM EST [facility] Provider Default SCAN REFERRAL Final Resu lt * (ABNORMAL) HEMOGLOBIN GLYCOSYLATED A1C (10/31/2024 11:07 AM EST) HEMOGLOBIN A1C 6.8(H) <5.7 % of total Hgb [employer] Comment: For someone without known diabetes, a hemoglobin A1c value of 6.5% or greater indicates that they may have diabetes and this should be confirmed with a follow-up test. For someone with known diabetes, a value <7% indicates that their diabetes is well controlled and a value greater than or equal to 7% indicates suboptimal control. A1c targets should be individualized based on duration of diabetes, age, comorbid conditions, and other considerations. Currently, no consensus exists regarding use of hemoglobin A1c for diagnosis of diabetes for children. ?? Blood Blood / Unknown 10/31/2024 1 1:07 AM EST 10/31/2024 11:07 AM EST Narrative [employer] - 11/01/2024 4:53 AM EST FASTING:NO Jhonathan Griffin PharmD LAB - BLOOD DRAW Final Re sult [employer] [employer] [address] [place] [phone], [facility] [address] [address] * (ABNORMAL) DRUG MONITORING, PANEL 8 WITH CONFIRMATION, URINE (09/15/2024 11:04 AM EST) AMPHETAMINES NEGATIVE <500 [employer] BENZODIAZEPINES NEGATIVE <100 [facility] BUPRENORPHINE NEGATIVE <5 [employer] COCAINE METABOLITE NEGATIVE <150 [facility] [facility] 6 ACETYLMORPHINE NEGATIVE <[address] [facility] MARIJUANA METABOLITE POSITIVE(A) <20 [facility] MEDMATCH MARIJUANA METAB PENDING [employer]. [facility] MARIJUANA METABOLITE 124(H) <5 ng/mL [employer] MEDMATCH MARIJUANA METAB PENDING [facility] Marijuana Comments Q [facility] MDMA NEGATIVE <500 [employer] OPIATES NEGATIVE <100 [employer] OXYCODONE NEGATIVE <100 [employer] CREATININE 93.0 > or = 20.0 mg/dL [employer] PH 5.3 4.5 - 9.0 [employer]. [facility] OXIDANT NEGATIVE <200 [employer] ALCOHOL METABOLITES NEGATIVE <500 [employer] 09/15/2024 11:0 4 AM EST 09/15/2024 11:05 AM EST Narrative [email or web address] [facility] - 09/19/2024 7:17 PM EST FASTING:NO Sheri Ely CLOTH TESTER LAB URINE AMBULATORY Edited Res ult - Final [email or web address] [address] [address], [employer]. [address] [address] * REFERRAL TO OPTHALMOLOGY (08/12/2024 3:00 AM EST) 08/12/2024 3:00 AM EST Nicole Segovia BUTT MAKER-BC REFERRAL Edited Re sult - Final * MICROALBUMIN/CREATININE RATIO, URINE, RANDOM (07/27/2024 9:07 AM EST) CREATININE, RANDOM URINE 43 20 - 320 mg/dL [employer] MICROALBUMIN 0.3 mg/dL [facility] [employer] [facility] Comment: Reference Range Not established MICROALBUMIN/CREA TININE RATIO, RANDOM URINE 7 <30 mg/g creat [employer] Comment: The ADA defines abnormalities in albumin excretion as follows: Albuminuria Category ?Result (mg/g creatinine) Normal to Mildly increased ?? <30 Moderately increased ? 30-299 Severely increased ? > OR = 300 The ADA recommends that at least two of three specimens collected within a 3-6 month period be abnormal before considering a patient to be within a diagnostic category. Urine Urine specimen / Unknown 07/27/2024 9:07 AM EST 07/27/2024 9:08 AM EST Narrative [employer] - 07/28/2024 5:54 PM EST FASTING:NO us Grady Sanders MD LAB URINE AMBULATORY Final R esult [facility] [address] [address], [facility] [address] [address] * (ABNORMAL) COMPREHENSIVE METABOLIC PANEL (07/27/2024 9:07 AM EST) GLUCOSE 191(H) 65 - 139 mg/dL [facility] Comment: ?Non-fasting reference interval UREA NITROGEN (BUN) 21 7 - 25 mg/dL [facility] CREATININE (blood) 1.01 0.70 - 1.35 mg/dL [employer] EGFR 83 > OR = 60 mL/min/1. 73m2 [employer] BUN/CREATININE RATIO SEE NOTE: [employer] [employer] Comment: ?? Not Reported: BUN and Creatinine are within ?? reference range. ? SODIUM 138 135 - 146 mmol/L [employer] POTASSIUM 4.5 3.5 - 5.3 mmol/L [employer] CHLORIDE 101 98 - 110 mmol/L [employer] CARBON DIOXIDE 28 20 - 32 mmol/L [employer] CALCIUM 10.2 8.6 - 10.3 mg/dL [employer] PROTEIN, TOTAL 7.5 6.1 - 8.1 g/dL [employer] ALBUMIN 4.7 3.6 - 5.1 g/dL [employer] GLOBULIN 2.8 1.9 - 3.7 g/dL (calc) [employer] ALBUMIN/GLOBULI N RATIO 1.7 1.0 - 2.5 (calc) [employer] BILIRUBIN, TOTAL 0.5 0.2 - 1.2 mg/dL [employer] ALKALINE PHOSPHATASE 57 35 - 144 U/L [employer] AST 15 10 - 35 U/L [employer] ALT 17 9 - 46 U/L [employer] Blood Blood / Unknown 07/27/2024 9 :07 AM EST 07/27/2024 9:08 AM EST Narrative [facility] [facility]. [facility] - 07/28/2024 5:54 PM EST FASTING:NO us Grady Sanders MD LAB - BLOOD DRAW Edited Resu lt - Final [employer]. [address] [address], [employer]. [address] [address] * LIPIDS W RFLX TO DIRECT LDL (10/16/2023 2:23 PM EST) CHOLESTEROL, TOTAL 148 <200 mg/dL [employer] HDL CHOLESTEROL 58 > OR = 40 mg/dL [employer] TRIGLYCERIDES 109 <150 mg/dL [employer]. [facility] LDL-CHOLESTEROL 71 99 mg/dL (calc) [employer] Comment: Reference range: <100 Desirable range <100 mg/dL for primary prevention; ?? <70 mg/dL for patients with CHD or diabetic patients with > or = 2 CHD risk factors. LDL-C is now calculated using the Donna calculation, which is a validated novel method providing better accuracy than the Friedewald equation in the estimation of LDL-C. Stevan GONZALES et al. JADA. 2013;310(19): 6507-8089 (http://education.ShareDesk/faq/DNF371) CHOL/HDLC RATIO 2.6 <5.0 (calc) [employer] NON-HDL CHOLESTEROL 90 <130 mg/dL (calc) [employer] Comment: For patients with diabetes plus 1 major ASCVD risk factor, treating to a non-HDL-C goal of <100 mg/dL (LDL-C of <70 mg/dL) is considered a therapeutic option. Blood Blood / Unknown 10/16/2023 2 :23 PM EST 10/16/2023 2:24 PM EST Narrative [employer] - 10/17/2023 5:08 AM EST FASTING:UNKNOWN Grady Sanders MD LAB - BLOOD DRAW Final Resul t Performing Organization Address [facility] de Phone Number [employer] [address] [place] [phone], [employer] [address] [address] * FIT Kit (04/01/2023 8:00 PM EDT) Pathologist [facility] FECAL GLOBIN BY IMMUNOCHEMISTRY See Note [employer] Comment: ??FECAL GLOBIN BY IMMUNOCHEMISTRY ?Micro Number: ?[id number] ??Test Status: ? Final ??Specimen Source: ?? Insure (tm) fobt test card ??Specimen Quality: ??Adequate ??Fecal Globin: ?Not Detected Stool Stool specimen / Unknown 04/01/2023 8:00 PM EDT 04/07/2023 9:57 PM EDT Grady Sanders MD LAB BODY FLUIDS AND STOOLS A MBULATORY Edited Result - Final Performing Organization Address [facility] Co de Phone Number [employer] [address] [place] [phone], [employer] [address] [address] * HIV Ag & Ab with Reflex Western Blot (06/23/2022 2:45 PM EDT) Pathologist [facility] HIV AG/AB, 4TH GEN NON-REAC TIVE NON-REAC TIVE [employer] [facility] Comment: HIV-1 antigen and HIV-1/HIV-2 antibodies were not detected. There is no laboratory evidence of HIV infection. PLEASE NOTE: This information has been disclosed to you from records whose confidentiality may be protected by state law. ??If your state requires such protection, then the state law prohibits you from making any further disclosure of the information without the specific written consent of the person to whom it pertains, or as otherwise permitted by law. A general authorization for the release of medical or other information is NOT sufficient for this purpose. ?? For additional information please refer to http://education.Zymetis/faq/FFD951 (This link is being provided for informational/ educational purposes only.) The performance of this assay has not been clinically validated in patients less than 2 years old. Blood Blood / Unknown 06/23/2022 2 :45 PM EDT 06/23/2022 2:46 PM EDT us Grady Sanders MD LAB - BLOOD DRAW Final Resul t [facility] [address] [address], [facility] [address] [address] from Last 3 Months or Most Recently Relevant to Health Maintenance Insurance [place] MED[place] D[place] [facility] Member Subscriber Plan / Payer (Ef fective 2024-Present) Name:Crenshaw Karthik Unique Relation to Subscriber:Self Name:Karthik Crenshaw Payer ID:[id number] Group ID:Not on file Type:Indemnity Address: [address] [place] [address] Care Teams Relay Mechanic Relationship Specialty Start Date End Date Grady Sanders MD [facility] [place] [address] PCP - General Internal Medicine 07/18/22
--- OUTSIDE RECORDS SUMMARY | 2025-02-07 12:13 | XMS_ITS | Clinical Summary ---
Author Organization [facility] Address [address] [facility] [address] [place] [address] Phone Care Team Providers Care Digital Librarian Name Role Phone Grady Sanders MD Primary Care Provider [phone] Allergies Active Allergy Reactions Criticality Noted Date Comments Codeine Hives,Other (see comments) 02/27/2014 Naltrexone Other (see comments) 02/27/2014 Pentazocine Nausea Only 02/27/2014 Semaglutide Diarrhea 06/18/2022 Sulfamethoxazole-Trimet hoprim 06/25/2022 Other reaction(s): Vomiting Tramadol Other (see comments) 07/19/2020 Medications traZODone (DESYREL) 50 MG tablet Take 1 tablet by mouth at bed time Active aspirin (ST KARTHIK) 81 MG EC tablet Take 1 tablet by mouth 1 (one) time each day Active clonazePAM (KlonoPIN) 0.5 MG tablet 0.25 mg in the morning and 0.25 mg in the evening. 7 Active finasteride (PROSCAR) 5 MG tablet finasteride 5 mg tablet 9 Active Testosterone 20.25 MG/ACT (1.62%) gel AndroGel 20.25 mg/1.25 gram (1.62 %) transdermal gel pump 3 pumps DAILY 7 Active metFORMIN (GLUCOPHAGE) 1000 MG tablet Take 1 tablet by mouth 2 (two) times a day 9 Active gabapentin (NEURONTIN) 600 MG tablet Take 600 mg by mouth 2 (two) times a day 9 Active Multiple Vitamins-Minera ls (MULTIVITAMIN ADULTS PO) multivitamin tablet TAKE 1 TABLET BY MOUTH EVERY DAY Active magnesium oxide (MAG-OX) 400 MG tablet at bed time Active Pramoxine-HC (Hydrocortisone Jamey-Pramoxine) 2.5-1 % cream 4 g 2 (two) times a day Active Cholecalciferol (Vitamin D) 50 MCG (1999 UT) capsule Take by mouth Active sildenafil (VIAGRA) 100 MG tablet Take 100 mg by mouth 1 (one) time each day if needed 2 Active cyanocobalamin (VITAMIN B-12) 100 MCG tablet Take 1 tablet by mouth 1 (one) time each day 2 Active docusate sodium (COLACE) 100 MG capsule Take 1 capsule by mouth if needed 2 Active SITagliptin (JANUVIA) 100 MG tablet Take 100 mg by mouth 1 (one) time each day Active Empagliflozin (Jardiance) 10 MG tablet Take 10 mg by mouth 1 (one) time each day in the morning Active atorvastatin (LIPITOR) 10 MG tablet Take 10 mg by mouth 1 (one) time each day Active Active Problems Problem Noted Date Diagnosed Date Calcific tendinitis 05/27/2023 05/27/2023 Overview (05/27/2023): shoulder Proteinuria 05/27/2023 Pain in joint 04/15/2023 04/15/2023 Adhesive capsulitis of shoulder 04/15/2023 04/15/2023 Bilateral recurrent inguinal hernia 04/15/2023 04/15/2023 Bilateral senile combined form cataracts of eyes 04/15/2023 04/15/2023 Cannabis abuse 04/15/2023 04/15/2023 Fracture of multiple ribs 04/15/20232022 Low back pain 04/15/2023 04/15/2023 Long-term current use of testosterone replacemen t therapy 04/15/2023 04/15/2023 Long-term current use of drug therapy 04/15/2023 04/15/2023 Insomnia 04/15/2023 04/15/2023 Hyperglycemia due to type 2 diabetes mellitus 04/15/2023 Patient encounter status 04/15/2023 023 Paraparesis 04/15/2023 04/15/2023 Opioid dependence, in remission 04/15/2023 04/15/2023 Nocturia 04/15/2023 04/15/2023 Skin tag 04/15/2023 04/15/2023 Right inguinal pain 04/15/2023 04/15/2023 Recurrent falls 04/15/2023 04/15/2023 Proteinuria 04/15/2023 04/15/2023 Psychoactive substance abuse 04/15/2023 Prescribed medication regimen behavior finding 0 04/15/2023 04/15/2023 Ureteric stone 04/15/2023 04/15/2023 Urge incontinence of urine 04/15/202304/15 Panacinar emphysema 04/03/2023 05/27/2023 Migraine with aura 02/20/2023 05/27/2023 Financial problem 01/02/2023 05/27/2023 Food insecurity 01/02/2023 05/27/2023 Housing problem 01/02/2023 05/27/2023 Lack of access to transportation 01/02/2023 05/27/2023 Chronic rhinitis 10/17/2022 04/15/2023 Recurrent major depressive episodes, moderate 04/15/2023 Male hypogonadism 06/18/2022 04/15/2023 Hyperlipidemia 04/16/2022 Viral hepatitis C 04/16/2022 Bradycardia 04/16/2022 Echocardiogram abnormal 09/17/2021 04/15/20 MRI scan abnormal 09/17/2021 04/15/2023 Uncontrolled type 2 diabetes mellitus 07/18/2020 Overview (06/21/2024): Replacing diagnoses that were inactivated after the 06/21/24 Regulatory Import Steatosis of liver 07/28/2019 04/15/2023 Microscopic hematuria 12/30/2018 04/15/2023 Callosity 12/24/2018 04/15/2023 Polyneuropathy due to type 2 diabetes mellitus 0 12/24/2018 04/15/2023 Astigmatism 10/13/2018 04/15/2023 Type 2 diabetes mellitus 10/13/2018 023 Impaired cognition 02/08/2018 04/15/2023 Benign prostatic hyperplasia 02/04/2018 Cardiomyopathy 02/04/2018 04/15/2023 Disorder of anterior pituitary 02/04/2018 0 04/15/2023 Cramp in lower limb 02/04/2018 04/15/2023 Chronic pain 02/04/2018 04/15/2023 Chronic obstructive pulmonary disease 02/04/2018 04/15/2023 Chronic kidney disease due to hypertension 02/0404/15/2023 Chronic intractable migraine without aura 201704/15/2023 Edentulous 02/04/2018 04/15/2023 Generalized anxiety disorder 02/04/2018 H/O: vertebral fracture 02/04/2018 04/15/20 Hemorrhoid 02/04/2018 04/15/2023 Hepatitis A immune 02/04/2018 04/15/2023 Hepatitis B immune 02/04/2018 04/15/2023 History of colonoscopy 02/04/2018 History of hernia repair 02/04/2018 023 Pain in face 02/04/2018 04/15/2023 Spondylosis 02/04/2018 04/15/2023 Obstructive sleep apnea syndrome 02/04/2018 04/15/2023 Rotator cuff syndrome 02/04/2018 04/15/2023 Wears glasses 02/04/2018 04/15/2023 Hammer toe 05/24/2015 05/27/2023 Non-pressure chronic ulcer o f other part of unspecified foot with unspecified severity 05/24/2015 05/27/2023 Essential (primary) hypertension 02/27/2014 Dysthymia 02/27/2014 05/27/2023 Overview (05/27/2023): STORY: DR JANICE SMALLS Dependence on enabling machine or device 014 05/27/2023 Amnesia 02/27/2014 05/27/2023 Overview (05/27/2023): IMPRESSION: PT CONTINUES TO EXPERIENCE SYMPTOMS. WILL TRY AGAIN TO COORDINATE NEUROPSYCH TESTING.; RECORDED 02/27/2014 2:10PM BY AUGUSTIN HAMMER MA, OFFICE VISIT Degeneration of cervical intervertebral disc 05/201405/27/2023 Overview (05/27/2023): STORY: C4 Dizziness and giddiness 06/13/2013 05/27/20 Overview (05/27/2023): IMPRESSION: LIKEY RELATED TO SINUS ISSUES, BUT IF PERSISTANT/WORSE WILL NEED FURTHER EVAL.; RECORDED 06/13/2013 10:43AM BY AUGUSTIN HAMMER MA, ANNOTATION/ADDENDUM Influenza vaccine needed 06/13/2013 023 Overview (05/27/2023): RECORDED 06/13/2013 10:54AM BY AUGUSTIN HAMMER MA, OFFICE VISIT Patient status finding 03/07/2013 Overview (05/27/2023): RECORDED 03/07/2013 11:22AM BY AUGUSTIN HAMMER MA, ANNOTATION/ADDENDUM Tobacco dependence syndrome 08/16/2012 09/0 02/2023 Overview (05/27/2023): RECORDED 08/16/2012 3:43PM BY AUGUSTIN HAMMER MA, ANNOTATION/ADDENDUM Closed dislocation, seventh cervical vertebra 04/15/2023 Resolved Problems Problem Noted Date Diagnosed Date Resolved Date Blood in urine 07/18/2020 01/18/2021 Anemia 11/27/2017 01/18/2021 History of opioid abuse 07/15/201712/22 History of viral hepatitis 07/15/2017 0 01/18/2021 Vitamin D deficiency 02/27/2014 021 Urinary tract obstruction 02/27/2014 Pure hypercholesterolemia 02/27/2014 Immunizations Immunization Administration Dates Next Due Hepatitis A 03/11/2012,08/20/2011 Influenza (IM) Preservative Free 07/14/2015,06/22 Influenza Split Preservative Free ID 07/14/2015, 06/13/2013,07/01/2012 Influenza, Quadrivalent, Pre servative Free 07/18/2022,05/19/2021,05/09/2020,05/13,05/19/2018,05/10/2018 Influenza, Quadrivalent, Wit h Preservative 06/16/2017,06/24/2016 Influenza, Unspecified 06/05/2017,07/14/2014 Moderna SARS-COV-2 02/20/2022, 2,12/21/2020,11/23 Pfizer SARS-COV-2 07/18/2022 Pneumococcal Conjugate Pcv 20 01/02/2023 Pneumococcal Polysaccharide 11/07/2014 Shingrix 11/21/2022,07/18/2019 Tdap 05/14/2021,12/20/2015,06/11/2009 Social History Tobacco Use Types Packs/Day Years Used Date Smoking Tobacco: Never Smokeless Tobacco: Never Tobacco Cessation:Counseling Given: Not Answered Alcohol Use Standard Drinks/Week Comments Not Currently 0 (1 standard drink = 0.6 oz pur e alcohol) Sex and Gender Information Value Date Recorded Sex Assigned at Not on file Legal Sex Male 4:33 PM EST Gender Identity Not on file Sexual Orientation Not on file Last Filed Vital Signs Vital Sign Reading Time Taken Comments Blood Pressure 128/66 05/27/2023 3:54 PM EDT Pulse 80 05/27/2023 3:54 PM EDT Temperature - - Respiratory Rate - - Oxygen Saturation 95% 05/27/2023 3:54 PM EDT Inhaled Oxygen Concentration - - Weight 84.7 kg (186 lb 12.8 oz) 05/27/2023 3:54 PM EDT Height 185.4 cm (6' 1 ) 12/31/2022 1:00 PM EDT Body Mass Index 24.65 12/31/2022 1:00 PM EDT Plan of Treatment Upcoming Encounters Date Type Department Care Team (Late st Contact Info) Description 02/08/2025 4:15 PM EDT Office Visit [facility] [address] [phone] Carri Browne ARNP [address] [address] Health Maintenance Due Date Last Done Comments Colorectal Cancer Screening: Annual FOBT 2008 Colorectal Cancer Screening: Sigmoidoscopy 2008 Diabetes: Ophthalmology Exam 12/12/2019 Diabetes: Pedal Pulse Checked 12/12/2019 Diabetes: Sensory Foot Exam 12/12/2019 Diabetes: Visual Foot Exam 12/12/2019 Diabetes: Hemoglobin A1C 01/28/2025 025, 04/03/2023, 10/17/2022 Colorectal Cancer Screening: Colonoscopy 02/05/2028 02/04/2018 Pneumococcal Vaccine: 50+ Years Completed 01/02/2023, 11/07/2014 Pneumococcal Vaccine: Peds (0 to 5 Years) and At-Risk Patients (6 to 49 Years) Discontinued 01/02/2023, 11/07/2014 Influenza Vaccine Completed 07/15/2024, , 07/18/2022, Additional history exists Hepatitis B Vaccine Aged Out No longe r eligible based on patient's age to complete this topic Insurance [address] [place] [id number] [address] [facility] Care Teams Digital Librarian Relationship Specialty Start Date End Date Grady Sanders MD [address] [place] [address] PCP - General Internal Medicine 06/25/22
== END 2025-02-07 11:54 | disposition home or self-care (01) ==
LOC: HO.PMC 10:56
PROVIDERS: PCP Internal Medicine; Visit Provider Nurse Practitioner Family
DX: M51.369 Other intervertebral disc degeneration, lumbar region without mention of lumbar back pain or lower extremity pain (principal); M54.50 Low back pain, unspecified; G89.29 Other chronic pain; E11.40 Type 2 diabetes mellitus with diabetic neuropathy, unspecified; M47.817 Spondylosis without myelopathy or radiculopathy, lumbosacral region; M25.551 Pain in right hip; M25.552 Pain in left hip; M54.17 Radiculopathy, lumbosacral region
CPT/HCPCS: 99204

== ENCOUNTER → 2025-02-07 10:56 | Outpatient (BNVA) | payer OTHER, SELFPAY | PROVIDERS: PCP Internal Medicine; Visit Provider Nurse Practitioner Family | DX: M51.369 Other intervertebral disc degeneration, lumbar region without mention of lumbar back pain or lower extremity pain (principal); M54.50 Low back pain, unspecified; M47.27 Other spondylosis with radiculopathy, lumbosacral region; M25.511 Pain in right shoulder; M25.512 Pain in left shoulder; M25.551 Pain in right hip; M25.552 Pain in left hip; E11.40 Type 2 diabetes mellitus with diabetic neuropathy, unspecified; G89.29 Other chronic pain | CPT/HCPCS: 99202 ==

== ENCOUNTER 2025-04-03 12:49 | Outpatient (AMB) | payer OTHER, SELFPAY ==
--- OUTSIDE RECORDS SUMMARY | 2025-03-31 10:00 | XMS_ITS | Encounter Summary ---
Author Organization [facility] Address [address] [place] [address] Care Team Providers Care Covering Machine Operator Helper Name Role Phone Grady Sanders MD Primary Care Provider + [phone] Encounter Details Date Type Department Care Team ([facility] Contact Info) Description 03/31/2025 10:00 AM EDT Office Visit [facility] [address] [place] [phone] Omar Dejesus, [address] [place] [address] Social History Tobacco Use Types Packs/Day Years Used Date Smoking Tobacco: Never Passive Smoke Exposure: Past Smokeless Tobacco: Never Alcohol Use Standard Drinks/Week Comments Not Currently 0 (1 standard drink = 0.6 oz pur e alcohol) Social Connections Answer Date Recorded How often do you feel lonely or isolated from th ose around you? 2 07/15/2024 Financial Resource Strain Answer Date R ecorded Hard to pay for: Food 1 07/15/2024 Stress Answer Date Recorded Do you feel these kinds of stress these days? 1 07/15/2024 Physical Activity Answer Date Recorded Physical Activity 0 06/17/2022 Food Insecurity Answer Date Recorded Hard to pay for: Food 1 07/15/2024 Transportation Needs Answer Date Record ed Hard to pay for: Transportation 1 07/15/2024 Housing Stability Answer Date Recorded Hard to pay for: Rent/Mortgage payment 1 07/15/2024 Safety and Environment Answer Date Subhash rded How often does anyone, inclu ding family and friends, physically hurt you? 1 03/15/2024 Utilities Answer Date Recorded Hard to pay for: Utilities 1 07/15 Employment Answer Date Recorded Stress 0 01/02/2023 Sex and Gender Information Value Date Recorded Sex Assigned at Male 06/17/2022 8:31 AM PDT Legal Sex Male 6:49 AM PDT Gender Identity Male 06/17/2022 8:31 AM PDT Sexual Orientation Straight 06/17/2022 8: 31 AM PDT documented as of this encounter Miscellaneous Notes * Group Note - Omar Dejesus RD - 04/03/2025 10:10 AM EDT Group Progress Note Group name: Nutrition Group Class- Lao in person Summary of today's group: Today's class focused on preparation of a nutrient dense salad which is perfect for meal prepping. Black vincent and corn salad was prepared. Canned beans were used to aid with time management as well as frozen corn kernels. Red hastings pepper was added as well as cilantro, garlic, red onions. Dressing was made from scratch and prepared first and then the ingredients were added and mixed to make the salad. This salad was served with tortilla chips on the side. Nutrient content of the ingredients was shared with the group. Class was enjoyed by all. 60 documented in this encounter Plan of Treatment Upcoming Encounters Date Type Department Care Team (Late st Contact Info) Description 04/04/2025 9:40 AM EDT Interim Notes [facility] [address] [place] [phone] 04/04/2025 10:40 AM EDT Office Visit [facility] [address] [place] [phone] 04/04/2025 11:10 AM EDT Interim Notes [facility] [address] [place] [phone] documented as of this encounter Visit Diagnoses Diagnosis Type 2 diabetes mellitus with hyperglycemia, with long-term current use of insulin ([facility])- Primary documented in this encounter Additional Health Concerns Assessment Noted Time PHQ-9 Depression Total Score: 0 02/23/20 25 2:50 PM PDT documented as of this encounter Care Teams Covering Machine Operator Helper Relationship Specialty Start Date End Date Grady Sanders MD [address] [place] [address] PCP - General Internal Medicine 07/18/22 documented as of this encounter
--- NOTE | 2025-04-03 12:49 | A.OFFVIS_ITS ---
Vital Signs 04/03/25 12:53 04/03/25 13:29 04/03/25 13:48 Height 6 ft 1 in Weight 190 lb BMI 25.1 BP 149/67 H 141/69 H 144/67 H Blood Pressure Location Rt brachial Rt brachial Rt brachial Position Sitting Sitting Sitting Pulse 50 47 L 48 L Pulse Source Pulse Oximeter Pulse Oximeter Pulse Oximeter Pulse Oximetry (%) 97 Oxygen Delivery Method Room Air Comment 15 mins after qutenza application 30 mins after qutenza application Intake Visit Reasons: QUTENZA Supervisor Knitting Required: No Allergies codeine (CODEINE) Allergy (Unknown, Verified 04/03/25 12:53) RASH naltrexone Allergy (Unknown, Verified 04/03/25 12:53) Unknown pentazocine Allergy (Unknown, Verified 04/03/25 12:53) Nausea sulfamethoxazole (From Bactrim) Allergy (Unknown, Verified 04/03/25 12:53) Unknown trimethoprim (From Bactrim) Allergy (Unknown, Verified 04/03/25 12:53) Unknown semaglutide Adverse Reaction (Unknown, Verified 04/03/25 12:53) Diarrhea From ULTRAM Allergy (Unknown, Uncoded 10/30/23 15:17) UNKNOWN HPI Comments Details: Patient presents for 1st application of capsaicin 8% topical patch for diabetic neuropathy in bilateral feet and discuss recent lumbar spine MRI results. Patient continues to endorse low back pain with radiation to both legs, worse on the right with daily activities, movements and walking. Previously, his elevated A1c of 10.2% hindered cortisone injection options, but it has improved to 6.5% recently, potentially allowing for further interventional therapy. Denies any recent cough, cold, infection, fever or other significant changes in medical history since last office visit. - Onset: Chronic and consistent - Quality: Radiating pain - Location: Back, buttocks, right leg>left leg - Exacerbating factors: Bending, standing for extended periods, nerve compression associated with disc degeneration - Relieving factors: Gabapentin, oxycodone; capsaicin application - Impact: Interferes with activities such as doing dishes, requiring rest breaks - Affect: Pain impacts daily activities and mood. - Analgesia: Current medications include gabapentin, meloxicam, oxycodone; reported pain level is 8/10. - Adverse Effects: None reported. - Activities of Daily Living: Pain affects mobility and daily functioning. - Aberrant Drug Related Behaviors: None reported. PRIOR: The patient is a 64-year-old male presenting with chronic lower back pain, primarily due to L5-S1 disc degeneration. The pain radiates into the right leg with symptoms of sciatica and is accompanied by diabetic neuropathy affecting bilateral feet. He has ongoing pain associated with bursitis and hip arthritis, worsening with activities like bending, walking and lifting. The patient reports sidestepping injection therapies due to concern about hyperglycemia. His pain management has been largely reliant on gabapentin and oxycodone, given his renal constraints preclude NSAID use. Occasionally, he will take meloxicam. He recounted that past physical therapy was ineffective, and administrative barriers including transportation issues limited pursuit of further intervention. He reports riding public bus exacerbates his chronic low back pain. The patient has tried a TENS unit in the past, reports no alcohol or tobacco use, and has ceased using marijuana. Previous MRI imaging hasn't been updated since 2014. - Onset and Timing: Chronic with long-standing duration. - Quality and Character: Pain originates in the lower back, radiates down the right leg posteriorly with sciatica-like symptoms. - Primary Location: Lower back, primarily right-sided. - Radiation: Right buttock and posterior leg to the knee and into lateral calf. - Exacerbating Factors: Bending, lifting, physical activity, prolonged walking or standing. - Relieving Factors: Medications like gabapentin, meloxicam and oxycodone provide some relief. Previously was taking Tylenol and Ibuprofen. - Functional Impact: Interferes with daily activities and mobility, difficulty bending and engaging in physical tasks. - Affect: The patient's chronic pain has an impact on daily life and general well-being. - Analgesia: Currently using gabapentin, meloxicam and oxycodone; goal is to identify alternative pain relief interventions due to limited efficacy. - Adverse Effects: Concern expressed over potential renal implications of NSAIDs. - Activities of Daily Living: Pain limits mobility and participation in physical activities. - Aberrant Drug-Related Behaviors: No reported irregularities in medication usage. Oswestry Low Back Pain Disability Score=27 [facility] Medical History Hypogonadism, testicular Stroke COPD (chronic obstructive pulmonary disease) Heart disease CKD (chronic kidney disease) stage 2, GFR 60-89 ml/min GERD (gastroesophageal reflux disease) HLD (hyperlipidemia) Hypertension Surgical History Hx of lithotripsy History of hernia surgery Hx of appendectomy Family History Brother Diabetes Cardiomyopathy Mother Dementia Other No known problems Social History Alcohol intake: former Patient Tobacco Use Status: Never used Tobacco Review of Systems Const All systems reviewed & are unremarkable except as noted in HPI and below Physical Exam Vital Signs: Last Vital Signs Pulse 48 L 04/03/25 13:48 BP 144/67 H 04/03/25 13:48 Pulse Ox 97 04/03/25 12:53 Oxygen Delivery Method Room Air 04/03/25 12:53 BMI result Body Mass Index 25.1 General: Appears afebrile. Alert and oriented. Mood and affect appropriate. Forgetful Follows and participates in conversation appropriately. Respiratory effort is unlabored. No cough. Able to transition from sit to stand unassisted. Uses cane with ambulation. Reports rotowalker use at home for mobility. Ambulates with bilaterally normal heel strike and toe off. General: Yes no CVA tenderness Back/Spine/Pelvis Other: Limited lumbar ROM due to pain. Demonstrates 5/5 left and 4/5 right strength of quadriceps bilaterally as well as flexion/dorsiflexion of bilateral feet against resistance. 2+ pedal pulses bilaterally. Straight leg rise with dorsiflexion positive bilaterally, right>left. +1 patellar and diminished achilles reflexes bilaterally. Facet loading test positive bilaterally. Josselyn sign, Juanjo?s, Pelvic compression and Stinchfield tests are positive bilaterally, right>left. Mild groin pain with I/E hip rotations bilaterally. Mild TTP to bilateral GTB. Valsalva maneuver is positive. Back: no CVA tenderness Cervical Spine: cervical ROM normal, cervical muscular tenderness and No Cervical spine tenderness Thoracic/Lumbar Spine: thoracic and lumbar spine normal to inspection, No Thoracic/lumbar spine scar(s), Lasegue's sign positive bilateral and localized, pain with thoraco-lumbar ROM, paraspinal muscle tenderness, thoraco-lumbar ROM limited, No thoracic spinal tenderness and lumbar spinal tenderness (L4-S1) Pelvis: buttock tenderness bilaterally (right>left) Sacroiliac joints: bilaterally (right>left) tender to palpation Extrem Other: There is a decreased sensation over the soles of the feet and toes. Reports numbness, burning, tingling in both feet, worse at night time. No breaks in the skin. No soft tissue swelling or warmth, small intact callus is present on right big toe. +2 pedal pulses bilaterally. General: Yes capillary refill normal, Yes no clubbing, cyanosis or edema and Yes no calf tenderness Office Procedures Topical Capsaicin Date 1:: 04/03/25 Laterality: Bilateral Location of left foot pain: Anterior, Posterior, Plantar, Proximal, Dorsal, Medial, Lateral and Distal Location of right foot pain: Anterior, Posterior, Plantar, Proximal, Dorsal, Medial, Lateral and Distal Quality of pain: Aching, Nagging, Burning, Gnawing, Numb-like and Penetrating Details:: Two patches, 560 cm2 were utilized per each foot. EMLA Cream (lidocaine 2.5% and prilocaine 2.5%) was applied at home by patient 2 days ago and not today prior to application of the patches. Patient elected to proceed with the procedure without EMLA cream. The patient tolerated the procedure well. Patient?s vitals signs remained stable throughout the procedure. Patient was able to complete the stipulated 30 minutes of the therapeutic application without any discomfort. Office Meds capsaicin-skin cleanser 8 % topical kit Performing Provider: YESSY Da Silva [place]forming Location[place] [facility] Administered by: YESSY Da Silva on 04/03/25 13:10 Dose Route Admin Location Dispensed Lot Number Expiration Date [employer] 4 ea topical [facility] 4 ea [id number] 08/21/26 07714-2 YOHO Total Dispensed Waste 4 ea 0 % Results Reviewed Results Reviewed: MRI LUMBAR SPINE WITHOUT CONTRAST 03/20/25 at [facility] CLINICAL INFORMATION: Lumbar degenerative disc disease. Lumbosacral radiculopathy. Chronic low back and bilateral hip/knee pain. TECHNICAL INFORMATION: 1. Sagittal and axial T1. 2. Sagittal and axial T2. 3. Sagittal STIR. SEDATION: None. COMPARISON: No existing relevant imaging immediately accessible. INTERPRETATION: The conus shows normal tapering and ends at L1. Included cord has normal internal signal and cauda equina is unremarkable. No spinal canal collections or intradural masses. Maintained lordotic curvature and preserved vertebral body heights. No segmental subluxation. Modic type II discogenic endplate reaction seen at L5-S1. Marrow signal elsewhere unremarkable. L5-S1: Severe disc degeneration with shallow disc osteophytic ridging and mildly narrowed neural foramina. Central canal inherently capacious. No neural impingement. L4-5 and L3-4: Mild disc degeneration with posterior bulging and annular fissuring noted. No significant spinal canal or foraminal narrowing. No neural impingement. L2-3: Disc height and hydration are preserved. No disc contour abnormality, spinal canal or foraminal stenosis is identified. L1-2: Disc height and hydration are preserved. No disc contour abnormality, spinal canal or foraminal stenosis is identified. T12-L1 and T11-12: Disc height and hydration are preserved. No disc contour abnormality, spinal canal or foraminal stenosis is identified. No prevertebral/paraspinous soft tissue masses or collections. Included pelvis intact and marrow signal normal. Superior portions of sacroiliac joints show no effusions, subarticular edema or sclerosis. CONCLUSION: 1. L5-S1, severe disc degeneration with mild biforaminal narrowing and no neural impingement. 2. L3-4 and L4-5, mild disc degeneration featuring annular fissures and no herniations. Assessment & Plan Assessment & Plan (1) Chronic painful diabetic neuropathy: Code(s): E11.40 - Type 2 diabetes mellitus with diabetic neuropathy, unspecified Category: Medical (2) Lumbar degenerative disc disease: Code(s): M51.369 - Other intervertebral disc degeneration, lumbar region without mention of lumbar back pain or lower extremity pain Category: Medical (3) Chronic low back pain: Code(s): M54.50 - Low back pain, unspecified; G89.29 - Other chronic pain Category: Medical (4) Lumbosacral spondylosis: Code(s): M47.817 - Spondylosis without myelopathy or radiculopathy, lumbosacral region Category: Medical (5) Lumbar radiculopathy: Code(s): M54.16 - Radiculopathy, lumbar region Category: Medical (6) Sacroiliac joint pain: Code(s): M53.3 - Sacrococcygeal disorders, not elsewhere classified Category: Medical Plan Patient is status post application of topical capsaicin 8% for diabetic neuropathy in bilateral feet. Patient tolerated the procedure without significant discomfort without application of EMLA cream prior to the procedure. Lumbar spine MRI results were discussed with patient today, dicussed i nterventional treatments including therapeutic JOANNA (will confirm A1C levels with PCP), Sprints PNS trials and Intracept BVN ablation. Informational pamphlets were provided to patient. Schedule Bilateral L5-S1 TFESI with local and fluoroscopy. Expectations, risks and benefits were reviewed. Patient is aware he will be contacted to schedule this procedure. All questions and concerns have been answered and patient agreed with the plan. Follow up after injections and sooner as needed. Patient was informed and verbally consented to the use of an ambient scribe for clinic note documentation during this visit. Orders: Orders AMB Capsaicin Patch - Practice Supplied 04/03/25 E11.40 - Type 2 diabetes mellitus with diabetic neuropathy, unspecified Coding Level of Care Code Est Pt Level 4 (42237) Complex EM visit Add On G2211 Diagnoses Chronic painful diabetic neuropathy E11.40 Lumbar degenerative disc disease M51.369 Chronic low back pain M54.50; G89.29 Lumbosacral spondylosis M47.817 Lumbar radiculopathy M54.16 Sacroiliac joint pain M53.3
[2025-04-03 12:53] VITALS: BP 149/67; PULSE 50; O2SAT 97; BMI 25.1
[2025-04-03 13:29] VITALS: BP 141/69; PULSE 47
--- OUTSIDE RECORDS SUMMARY | 2025-04-03 13:45 | XMS_ITS | Encounter Summary ---
Author Organization [facility] Address [address] [address] Phone Care Team Providers Care Occ Ther Name Role Phone Grady Sanders MD Primary Care Provider [phone]- [phone] Encounter Details Date Type Department Care Team (Late Contact Info) Description 02/08/2025 Office Communication [facility] [address] [address] Carri Browne ARNP [address] [address] Social History Tobacco Use Types Packs/Day Years Used Date Smoking Tobacco: Never Smokeless Tobacco: Never Alcohol Use Standard Drinks/Week Comments Not Currently 0 (1 standard drink = 0.6 oz pur e alcohol) Sex and Gender Information Value Date Recorded Sex Assigned at Not on file Legal Sex Male 4:33 PM EST Gender Identity Not on file Sexual Orientation Not on file documented as of this encounter Plan of Treatment Upcoming Encounters Date Type Department Care Team (Late Contact Info) Description 08/14/2025 11:00 AM EST Office Visit [facility] [address] [address] Carri Browne ARNP [address] [address] documented as of this encounter Visit Diagnoses Not on filedocumented in this encounter Care Teams Occ Ther Relationship Specialty Start Date End Date Grady Sanders MD [address] [place] [address] PCP - General Internal Medicine 06/25/22 documented as of this encounter
--- OUTSIDE RECORDS SUMMARY | 2025-04-03 13:45 | XMS_ITS | Clinical Summary ---
Author Organization [address] [facility] Address [address] [place] [address] Phone Care Team Providers Care Playground Monitor Name Role Phone Grady Sanders MD Primary Care Provider [phone]- [phone] Allergies Active Allergy Reactions Criticality Noted Date Comments Sulfamethoxazole-Trimethoprim 2024 Codeine 11/23/2024 Encounters Date Type Department Care Team Description 02/23/2025 9:00 AM EDT Office Visit Orthopedic Surgery [facility] [address] [facility] [address] [place] [address] Steve Downs, DPM Dermatophytosis of nail (Primary Dx); Hallux rigidus of left foot; Hallux rigidus of right foot; Corns and callosities; Type II diabetes mellitus with peripheral circulatory disorder (CMS/HCC V24, CMS/HCC V28); Metatarsalgia of both feet; Diabetic mononeuropathy simplex (CMS/HCC V24, CMS/HCC V28) from Last 3 [...] Concentration - - Weight 89.4 kg (197 lb 1.5 oz) 02/23/2025 8:40 A M EDT Height 182.9 cm (6' 0.01 ) 02/23/2025 8:40 AM ED T Body Mass Index 26.72 02/23/2025 8:40 AM EDT Plan of Treatment Upcoming Encounters Date Type Department Care Team ([facility] st Contact Info) Description 05/29/2025 8:45 AM EDT Office Visit Orthopedic Surgery - [place] [address] [address] Steve Downs, DPM [address] [address] Health Maintenance Due Date Last Done Comments [...] 04/01/2023 Falls Risk Assessment 2024 COVID-19 Vaccine ( season) 2025 07/15/2024, 07/10/2023, 07/18/2022, Additional history exists Influenza Vaccine (#1) 2025 , 07/10/2023, 07/18/2022, Additional history exists Diabetes: Annual Urine Albumin-Creatinine Ratio (uACR) 07/27/2025 07/27/2024, 04/28/2024, 07/10/2023, Additional history exists Diabetes: Blood Sugar Control Test (HGBA1C) 08/24/2025 02/22/2025, 10/31/2024 Depression Screening 02/22/2026 02/22/2025 Diabetes: Annual GFR (Glomerular Filtration Rate) 02/22/2026 02/22/2025, 07/27/2024 Hypertension/CHF/CAD Annual BMP Blood Test 02/22/2026 02/22/2025, 07/27/2024 Cholesterol Screening (Lipid Panel) 02/22/2030 02/22/2025, 10/16/2023 DTaP,Tdap,and Td Vaccines (4 - Td or Tdap) 05/14/2031 05/14/2021, 12/20/2015, 06/11/2009 Hepatitis A Vaccines Completed 03/11/2012, 08/20/20 11 Zoster Vaccines Completed 11/21/2022, 07/18/2019 Pneumococcal Vaccine: 50+ Years Completed 01/02/2023, 11/07/2014 HIB Vaccines Aged Out No longer eligi [...] patient's age to complete this topic [place] [address] [address] [place] [id number] [facility] MEDICARE Member Subscriber Plan / Payer (Ef fective 2024-Present) Name:KARTHIK CRENSHAW Relation to Subscriber:Self Name:Karthik Crenshaw Payer ID:[id number] Group ID:[id number] Type:Not on file Address: [address] [facility] [place] [address] Advance Directives Documents on File Type Date Recorded Patient Chief Pharmacist Expl anation Health Care Decision (hx) 05/10/2022 [...] CRUZ DIRECTIVE Health Care Decision (hx) 05/07/2022 YELENA DELA CRUZ DIRECTIVE Care Teams Playground Monitor Relationship Specialty Start Date End Date Grady Sanders MD [facility] [place] [address] PCP - General Internal Medicine 09/02/24
--- OUTSIDE RECORDS SUMMARY | 2025-04-03 13:45 | XMS_ITS | Data Portability ---
Author Organization [facility], Main Office Address [address] [place] [address] Care Team Providers Care Pawn Shop Keeper Name Role Phone LIUDMILA CHRIST Primary Care Provider [phone] YAMINI EASLEY OTHER [facility] DIAS OTHER LYNNE LUEVANO OTHER [phone] ANGELICA SALAS OTHER ELISE RUVALCABA OTHER OLYA HOBBS OTHER JI MATHIS OTHER ANGELICA SALAS Urologist Assessment No assessment recorded. Plan of Treatment Reminders Order Date Submit Date Provider Last Modified By Organization Details Last Modified Time Details Appointments None recorde d. Lab CMP, serum or plasma 2017 018 [facility], [address], [place], [address], 8 19:51:24 LDL, serum 2017 018 [facility], [address], [place], [address], 8 19:51:25 microal bumin, urine 2017 018 [facility], [address], [place], [address], 8 23:52:25 HbA1c (hemogl obin A1c), blood 2017 018 [facility], [address], [address], [place], [address], 8 23:43:05 TSH, serum or plasma 2017 018 [facility], [address], [address], [place], [address], 8 20:01:32 CBC w/ auto diff 2017 018 [facility], [address], [address], [place], [address], 8 18:38:01 hepatit is A Ab, total, serum 2016 017 [facility], [address], [address], [place], [address], 7 10:55:30 hepatit is C virus RNA, quant, PCR, serum or plasma 2016 017 [facility], [address], [address], [place], [address], 7 08:24:37 hepatit is C virus Ab, serum 2016 017 [facility], [address], [address], [place], [address], 7 10:55:27 hepatit is B surface Ab, qualita tive, serum 2016 017 [facility], [address], [address], [place], [address], 7 10:56:56 microal bumin, urine 2016 017 [facility], [address], [address], [place], [address], 7 02:43:52 hemoglo bin A1C, fingers tick 2016 [place] In-Office Order, Internal Use Only DO Not Attach Compendium DO Not Attach Compendium, Do Not Delete/merge, [id number] 7 10:28:56 Referral nutriti onist/d ietitia n referra l 2016 017 Not available 7 14:51:22 dermato logist referra l 2016 017 [email or web address] Not available 7 11:11:09 Procedures None recorde d. Surgeries None recorde d. Imaging None recorde d. Medication Orders simvast atin 10 mg tablet 2017 018 [id number], [address] [place] [address], [id number], 8 13:41:31 lisinop ril 10 mg tablet 2017 018 INTERFACE [facility] #[id number], [address] [place] [address], [id number], 8 13:41:50 glipizi de ER 5 mg 24 hr tablet, extende d release 2016 017 connien [facility] #[id number], [address], [place], [id number], 7 14:04:24 permeth rin 5 % topical cream 2016 017 dao [facility] #39191, [address], [place], [id number], 7 14:22:47 Patient Targets Encounter Date Encounter Id Patient Goals Patient Target Last Modified By Organization Details Last Modified Time 01/09/2017 [id number] Microalbumin/Cr eatinine Ratio yearly Not available Not [...] <100 Not available Not available Not available 01/09/2017 [id number] Pt advised and agrees to do moderate [...] goal. awychowski Not available 01/09/2017 10:26:08 07/15/2017 [id number] Microalbumin/Cr eatinine Ratio yearly Not available Not available Not available Blood Pressure 130 / 80 Not available Not available Not available Hemoglobin A1C 2 times per yr Not available Not available Not available Hemoglobin A1C <7 Not available Not available Not available LDL Direct <100 Not available Not available Not available Cholesterol, LDL <100 Not available Not available Not available 07/15/2017 [id number] Pt advised and agrees to do moderate exercise (such as walking) for approximately 150 minutes per week; to decrease carbohydrate intake (25 % of total carbohydrates or less); and to monitor blood glucose as directed Will bring meter and/or readings to appointments. Patient preferences and goals incorporated in plan and updated/modifie d as needed to reflect progress toward goal. awychowski Not available 07/15/2017 14:41:16 11/27/2017 [id number] Microalbumin/Cr eatinine Ratio yearly Not available Not available Not available Blood Pressure 130 / 80 Not available Not available Not available Hemoglobin A1C 2 times per yr Not available Not available Not available Hemoglobin A1C <7 Not available Not available Not available LDL Direct <100 Not available Not available Not available Cholesterol, LDL <100 Not available Not available Not available 11/27/2017 [id number] Pt advised and agrees to do moderate exercise (such as walking) for approximately 150 minutes per week; to decrease carbohydrate intake (25 % of total carbohydrates or less); and to monitor blood glucose as directed Will bring meter and/or readings to appointments. Patient preferences and goals incorporated in plan and updated/modifie d as needed to reflect progress toward goal. awychowski Not available 11/27/2017 13:40:19 Patient Instructions Encounter Date Encounter Id Patient Instructions Last Modified By Organization Details Last Modified Time 12/12/2016 [id number] I have reviewed the note and agree with the assessment and plan of care. [email or web address] Not available 12/14/2016 21:50:13 01/09/2017 [id number] anxiety disorder: care instructions Not available 01/09/2017 [...] effects from medication or cost of medication. [email or web address] Not available 01/09/2017 10:26:34 07/15/2017 [id number] high cholesterol: care instructions [email or web address] Not available 07/15/2017 14:50:40 When You Want to Lose Weight: Care Instructions [email or web address] Not available 07/15/2017 14:50:40 Nutrition Referral and Weight Management Follow-up Information [email or web address] Not available 07/15/2017 14:51:12 Medications (OTC, herbal therapies, supplements) reviewed and reconciled with patient and or caregiver, including potential side effects, drug interactions, instructions, and the consequences of not taking medication. Reviewed potential barriers to medication adherence, such as side effects from medication or cost of medication. awychowski Not available 07/15/2017 14:41:24 10/12/2017 [id number] upper respiratory infection (cold): care instructions [email or web address] Not available 10/14/2017 06:24:12 eustachian tube problems: care instructions awychowski Not available 10/14/2017 06:24:12 saline nasal washes: care instructions [email or web address] Not available 10/14/2017 06:24:12 11/27/2017 [id number] high cholesterol: care instructions [email or web address] Not available [...] Not available 11/27/2017 13:40:31 Reason for Referral Roll Forger Referral for E ruption Referring Physician: Margie Dinh, Internal Medicine, Encounter Date: 12/12/2016 Automotive Glass Mechanic/dietitian Refer ral for Body mass index 25-29 - overweight Referring Physician: Christ Maldonado, Family Medicine, Encounter Date: 07/15/2017 Results Created Date Observation Date Name Description Value Unit Range Abnormal Flag Note LastModifiedBy Organization Detail LastModifiedTime 01/10/20 17 01/09/2017 hemog lobin A1C, finge rstic k HA1C 8.6 % 4-6 Not Available In-Office Order Internal Use Only DO Not Attach Compendium DO Not Attach Compendium, Do Not Delete/merge, [id number] 01/09/2017 10:05:44 01/10/20 17 01/10/2017 micro album in, urine micro-albumi n 23.7 [...] The Location Of Their Choice, 01/10/2017 02:43:52 06/18/20 17 06/18/2017 CMP, serum or plasm a glucose 157 [...] Go To The Location Of Their Choice, [id number] 06/18/2017 20:17:29 06/18/20 17 06/18/2017 CMP, serum [...] Go To The Location Of Their Choice, [id number] 06/18/2017 20:17:29 06/18/20 17 06/19/2017 vitam in D, 25-hy droxy , total , serum 25OH vitamin D 32.6 NG/mL (20-50 ) SERUM 25OHD : 20 TO 50 NG/ML : SUFFI CIENT IN VITAM IN D. Refer ence: [facility] Data Brief : No.59 November: Vitam in D Statu s: Unite d State s: 2000- 2005 Not Available [facility] (Centralized Electronic Ordering - All Locations) Patient Can Go To The Location Of Their Choice, [id number] 06/19/2017 06:05:58 07/15/20 17 07/16/2017 hepat itis C virus Ab, serum anti-hepatit is C REACT MALISSA BY FELIX GENAO EIA. FOR ALL REACT MALISSA ANTI HCV FELIX GENAO RESUL TS, BRL RECOM MENDS COLLE CTING A NEW SPECI MEN AND ORDER ING THE HEPAT ITIS C VIRUS (HCV) RNA QUANT IFICA TION TEST FOR CONFI RMATI ON. Resul t repor fidel to [facility]. REFER ENCE RANGE : NEGAT MALISSA Not Available [facility] (Centralized Electronic Ordering - All Locations) Patient Can Go To The Location Of Their Choice, [id number] 07/16/2017 10:55:27 07/15/20 17 07/16/2017 hepat itis [...] Go To The Location Of Their Choice, [id number] 07/16/2017 10:55:30 07/15/2007/16/2017 hepat itis B surfa ce Ab, quali tativ e, serum anti-hbs POSIT MALISSA INDIC ATES PRIOR EXPOS URE OR IMMUN ITY. Not Available [facility] (Centralized Electronic Ordering - All Locations) Patient Can Go To The Location Of Their Choice, [id number] 07/16/2017 10:56:56 07/15/2007/17/2017 hepat itis C virus RNA, quant , PCR, serum or plasm a HCV quant IU/mL Not detec fidel HCV RNA WAS NOT DETEC FIDEL IN THE SPECI MEN. Resul t repor fidel to [facility]. Testi ng perfo rmed by real time [...] Go To The Location Of Their Choice, [id number] 07/17/2017 08:24:37 07/15/20 17 07/17/2017 hepat itis C virus RNA, quant , PCR, serum or plasm a hcvqnt log result LOG value not calcul ated logiu /mL Not Available [facility] (Centralized Electronic Ordering - All Locations) Patient Can Go To The Location Of Their Choice, [id number] 07/17/2017 08:24:37 11/28/1911/27/2017 CMP, serum or plasm [...] Go To The Location Of Their Choice, [id number] 11/27/2017 19:51:25 11/28/1911/27/2017 TSH, serum or plasm a TSH 6.33 mIU/m L (0.40- 4.00) high Not Available [facility] (Centralized Electronic Ordering - All Locations) Patient Can Go To The Location Of Their Choice, [id number] 11/27/2017 20:01:32 11/28/19 18 11/27/2017 vitam in D, 25-hy droxy , total , serum 25OH vitamin D 41.6 NG/mL (20-50 ) Serum 25OHD : 20 to 50 ng/mL : suffi cient in vitam in D. Refer ence: [facility] Data Brief : No.59 November: Vitam in D Statu s: Unite d State s: 2000- 2005 As of , Vitam in D, 25-Hy droxy assay has been ham[place] ed. In some [facility], the new assay may yield a highe r value (up to 15% incre ase) in lav[place] rison to the old assay . These incre ases would mainl y be notic eable at value s of great er than 50 ng/ml . Not Available [facility] (Centralized Electronic Ordering - All Locations) Patient Can Go To The Location Of Their Choice, [id number] 11/27/2017 20:47:57 11/28/1911/27/2017 T4, free, serum free T4 1.11 NG/dL (0.70- 1.80) Not Available [facility] (Centralized Electronic Ordering - All Locations) Patient Can Go To The Location Of Their Choice, [id number] 11/27/2017 21:06:46 11/28/1911/27/2017 HbA1c (hemo globi n [...] Go To The Location Of Their Choice, [id number] 11/27/2017 23:43:05 11/28/19 18 11/27/2017 micro album in, urine micro-albumi n 25.0 mg/L (0-20) high Not Available [facility] (Centralized Electronic Ordering - All Locations) Patient Can Go To The Location Of Their Choice, [id number] 11/27/2017 23:52:25 11/28/19 18 11/27/2017 micro album in, urine malb/creat ratio 11.0 mg/gm (0-20) Not Available [facility] (Centralized Electronic Ordering - All Locations) Patient Can Go To The Location Of Their Choice, [id number] 11/27/2017 23:52:25 11/28/19 18 11/27/2017 micro album in, urine urine creat for micro albumin 228.3 mg/dL Not Available [facility] (Centralized Electronic Ordering - All Locations) Patient Can Go To The Location Of Their Choice, [id number] 11/27/2017 23:52:25 Result Notes None recorded. Problems Name Problem SNOMED Code Status Onset Date Resolution Date Notes Provider Name and Address Organization Details Recorded Time Anemia [id number] Completed 201205/01/2014 RECORDED 07/26/20 13 2:55PM BY BELL STAHL MA, ANNOTATI ON/SRIRAM Maldonado MD [address] [facility] [address], [place], [address], [facility] [place] 8 13:49:00 Patient status finding [id number] Completed 201205/01/2014 RECORDED 03/07/20 13 11:22AM BY BELL STAHL MA, ANNOTATI ON/SRIRAM Maldonado MD [address] [facility] [address], [place], [address], [facility] [place] 6 13:41:12 Urinary tract obstruct ion 0024026 Completed 201305/01/2014 RECORDED 10/12/19 14 11:27AM BY BELL STAHL MA, ANNOTATI ON/SRIRAM Maldonado MD [address], [place], [address], [facility] 7 14:32:48 Pain of hip region 66330483 Completed 201205/01/2014 RECORDED 03/07/20 13 11:22AM BY BELL STAHL MA, ANNOTATI ON/SRIRAM Maldonado MD [address], [place], [address], [facility] 6 13:41:12 Breathin g painful 83100136 Completed 201205/01/2014 IMPRESSI ON: SLOWLY IMPROVIN G, PT ON METHADON E. OTC NSAIDS ADVISED. ; RECORDED 03/07/20 13 11:22AM BY BELL STAHL MA, ANNOTATI ON/SRIRAM Maldonado MD [address], [place], [address], [facility] 6 13:41:12 Follow-u p encounte r Completed 201305/01/2014 RECORDED 02/03/20 14 12:45PM BY LEN GREEN MA, BERNADINE ON/SRIRAM Maldonado MD [address] [facility] [address], [place], [address], [facility] 6 13:41:12 Influenz a vaccine needed [id number] 06 Completed 201205/01/2014 RECORDED 06/13/20 13 10:54AM BY BELL STAHL MA, OFFICE VISIT Christ Maldonado MD [address], [place], [address], [facility] 6 13:41:12 Superfic ial foreign body in finger Completed 201311/07/2014 IMPRESSI ON: EXAM CONCERNI NG FOR POSSIBLE RETAINED FB. GIVEN LOCATION WILL REFER TO ORTHO/CANALES ND FOR FURTHER EVAL.; RECORDED 03/08/20 14 5:07PM BY CHRIST Archer MD, OFFICE VISIT Christ Maldonado MD [address] [facility] [address], [place] [address], [facility] 6 13:41:12 Adult health examinat ion Completed 201305/01/2014 IMPRESSI ON: WILL UPDATE IMMUNIZA TION STATUS AND SCREEN BASED ON RISK FACTORS. REGULAR DENTAL CARE AND SEATBELT USE ADVISED. DISTRACT ED DRIVING DISCUSSE D. COLON CANCER SCREENIN G DUE 2014. PROSTATE CANCER SCREENIN G DONE VIA UROLOGY. ; RECORDED 10/12/19 14 11:27AM BY BELL STAHL MA, ANNOTATI ON/ADDEN DUM Christ Maldonado MD [address] [facility] [address], [place] [address], [facility] 6 13:41:12 Disease of liver 817938192 Completed 201205/01/2014 RECORDED 07/26/20 13 2:55PM BY BELL STAHL MA, COYATI ON/ADDEN DUM Christ Maldonado MD [address] [facility] [address], [place], [address], [facility] 6 13:41:12 Renewal of prescrip tion Completed 201305/01/2014 RECORDED 02/03/20 14 12:45PM BY LEN GREEN MA, ANNOTATI ON/ADDEN DUM Christ Maldonado MD [address] [facility] [address], [place], [address], [facility] 6 13:41:12 Chronic sinusiti s 79825950 Completed 201105/01/2014 IMPRESSI ON: SEEMINGL Y CHRONIC/ RECURREN T WILL SEE IF IMAGING CONFIRMS THIS. CPAP TX LIKELY CONTRIBU TING WELL. TRY ANOTHER COURSE OF ABX AND CONSULT ENT FOR ADDITION AL MGMT OPTIONS. ; RECORDED 08/19/20 12 10:06AM BY BELL STAHL MA, ANNOTATI ON/ADDEN DUM Christ Maldonado MD [address] [facility] [address], [place], [address], [facility] 6 13:41:12 Tubercul osis screenin g Completed 201305/01/2014 RECORDED 10/31/19 14 9:34AM BY BELL STAHL MA, NURSE VISIT Christ Maldonado MD [address] [facility] [address], [place], [address], [facility] 6 13:41:12 Tobacco dependen ce syndrome 74749979 Completed 201105/01/2014 RECORDED 08/16/20 12 3:43PM BY BELL STAHL MA, ANNOTATI ON/ADDEN DUM Christ Maldonado MD [address] [facility] [address], [place], [address], [facility] 6 13:41:12 Dizzines s and giddines s 493787129 Completed 201205/01/2014 IMPRESSI ON: LIKEY RELATED TO SINUS ISSUES, BUT IF PERSISTA NT/WORSE WILL NEED FURTHER EVAL.; RECORDED 06/13/20 13 10:43AM BY BELL STAHL MA, ANNOTATI ON/ADDEN DUM Christ Maldonado MD [address] [facility] [address], [place], [address], [facility] 6 13:41:12 Type B viral hepatiti s 84666777 Completed 201205/01/2014 RECORDED 07/26/20 13 2:55PM BY BELL STAHL MA, ANNOTATI ON/SRIRAM Maldonado MD [address] [facility] [address], [place], [address], [facility] 6 13:41:12 Viral hepatiti s C 40570732 Completed 201205/01/2014 RECORDED 07/26/20 13 2:55PM BY BELL STAHL MA, ANNOTATI ON/ADDEN DUM Christ Maldonado MD [address], [place], [address], [facility] 6 13:41:12 Dizzines s 733318559 Completed 11/15/2014 Christ Maldonado MD [address], [place], [address], [facility] 6 13:41:12 Environm ental allergy 378159194 Active Christ Maldonado MD [address], [place], [address], [facility] 6 13:41:12 Body mass index 25-29 - overweig ht 722011481 Active Christ Maldonado MD [address], [place], [address], [facility] 6 14:03:53 Depressi ve disorder 61477188 Active Christ Maldonado MD [address], [place], [address], [facility] 6 13:41:12 Anemia 455393678 Completed 201204/04/2014 RECORDED 07/26/20 13 2:55PM BY BELL STAHL MA, ANNOTATI ON/ADDMATT DUM Christ Madlonado MD [address], [place], [address], [facility] 8 13:49:00 Dysthymi a 67973893 Completed 201303/10/2016 STORY: DR JANICE Maldonado MD [address], [place], [address], [facility] 6 13:41:12 Patient status finding [id number] Completed 201204/04/2014 RECORDED 03/07/20 13 11:22AM BY BELL STAHL MA, ANNOTATI ON/ADDEN DUM Christ Maldonado MD [address], [place], [address], [facility] 6 13:41:12 Backache 985745628 Active 2013 Christ Maldonado MD [address], [place], [address], [facility] 7 14:28:17 Urinary tract obstruct ion 7041510 Completed 201304/04/2014 RECORDED 10/12/19 14 11:27AM BY BELL STAHL MA, ANNOTATI ON/ADDEN DUM Christ Maldonado MD [address], [place], [address], [facility] 7 14:32:48 Benign prostati c hyperpla kaylie 778754502 Active 2013 Jese Maldonado MD [address], [place], [address], [facility] 6 13:41:12 Lower urinary tract symptoms 671303691 Active 2013 Christ Maldonado MD [address], [place], [address], [facility] 6 13:41:12 Pain of hip region 01393849 Completed 201204/04/2014 RECORDED 03/07/20 13 11:22AM BY BELL STAHL MA, ANNOTATI ON/ADDEN DUM Christ Maldonado MD [address], [place], [address], [facility] 6 13:41:12 Urinary tract obstruct ion 1549840 Active 2013 Christ Maldonado MD [address], [place], [address], [facility] 7 14:32:48 Breathcathy tom painful 74319535 Completed 201204/04/2014 IMPRESSI ON: SLOWLY IMPROVIN G, PT ON METHADON E. OTC NSAIDS ADVISED. 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 Christ Maldonado MD [address] [address], [place], [address], [facility] 7 14:27:30 Constipa tion 17503141 Active 2013 Christ Maldonado MD [address] [address], [place], [address], [facility] 6 13:41:12 Dependen ce on enabling machine or device 857483556 Completed 201307/15/2017 Christ Maldonado MD [address] [address], [place], [address], [facility] 7 14:27:31 Degenera tion of cervical interver tebral disc 21529205 Active 2013 STORY: C4 Christ Maldonado MD [address] [address], [place], [address], [facility] 6 13:41:12 Type 2 diabetes mellitus without complica tion 808786785 Active 2013 Christ Maldonado MD [address] [address], [place], [address], [facility] 6 14:03:53 Type 2 diabetes mellitus without complica tion 881050370 Completed 201204/04/2014 IMPRESSI ON: POOR CONTROL SECONDAR Y TO DIET/LIF ESTYLE. GOING TO A [employer] AND WORKING WITH ENDO.; RECORDED 06/13/20 13 10:44AM BY BELL STAHL MA, COYATI ON/ADDEN DUM Christ Maldonado MD [address], [place], [address], [facility] 6 13:41:12 Follow-u p encounte r Completed 201304/04/2014 RECORDED 02/03/20 14 12:45PM BY LEN GREEN MA, COYATI ON/ADD DUM Christ Maldonado MD [address], [place], [address], [facility] 6 13:41:12 Influenz a vaccine needed 23421581677 06 Completed 201204/04/2014 RECORDED 06/13/20 13 10:54AM BY BELL STAHL MA, OFFICE VISIT Christ Maldonado MD [address], [place], [address], [facility] 6 13:41:12 Adult health examinat ion Completed 201304/04/2014 IMPRESSI ON: WILL UPDATE IMMUNIZA TION STATUS AND SCREEN BASED ON RISK FACTORS. REGULAR DENTAL CARE AND SEATBELT USE ADVISED. DISTRACT ED DRIVING BRADEN Kaufman. COLON CANCER SCREENIN G DUE 2014. PROSTATE CANCER SCREENIN G DONE VIA UROLOGY. ; RECORDED 10/12/19 14 11:27AM BY BELL STAHL MA, BERNADINE ON/ADDEN DUM Christ Maldonado MD [address], [place], [address], [facility] 6 13:41:12 Headache 95874449 Active 2013 Christ Maldonado MD [address], [place], [address], [facility] 6 13:41:12 Pure hypercho lesterol emia 647343812 Active 2013 Christ Maldonado MD [address] [facility] [address], [place], [address], [facility] 6 14:03:53 Essentia l hyperten andrzej 45589275 Active 2013 Christ Maldonado MD [address] [facility] [address], [place], [address], [facility] 6 14:03:53 Essentia l hyperten andrzej 60078375 Completed 201304/04/2014 IMPRESSI ON: WELL CONTROLL ED ON CURRENT DOSE. WILL CONTIINU E IS.; RECORDED 02/03/20 14 12:45PM BY LEN GREEN MA, ANNOTATI ON/ADDEN DUM Christ Maldonado MD [address] [facility] [address], [place], [address], [facility] 6 13:41:12 Disease of liver 087607457 Completed 201204/04/2014 RECORDED 07/26/20 13 2:55PM BY BELL STAHL MA, COYATI ON/ADDEN DUM Christ Maldonado MD [address] [facility] [address], [place], [address], [facility] 6 13:41:12 Testicul ar hypofunc tion 139146524 Active 2013 Dr. Jane Maldonado MD [address] [facility] [address], [place], [address], [facility] 6 13:41:12 Renewal of prescrip tion Completed 201304/04/2014 RECORDED 02/03/20 14 12:45PM BY LEN GREEN MA, ANNOTATI ON/ADDEN DUM Christ Maldonado MD [address] [facility] [address], [place], [address], [facility] 6 13:41:12 Amnesia 85692648 Completed 201303/10/2016 IMPRESSI ON: PT CONTINUE S TO EXPERIEN CE SYMPTOMS . WILL TRY AGAIN TO [place] TE NEUROPSY CH TESTING. ; RECORDED 02/28/20 14 2:10PM BY BELL STAHL MA, OFFICE VISIT Christ Maldonado MD [address], [place], [address], [facility] 6 13:41:12 Obstruct malissa sleep apnea syndrome 50832771 Completed 201307/15/2017 Christ Maldonado MD [address] [facility] [address], [place], [address], [facility] 7 14:33:02 Chronic sinusiti s 78216547 Completed 201104/04/2014 IMPRESSI ON: SEEMINGL Y CHRONIC/ RECURREN T WILL SEE IF IMAGING CONFIRMS THIS. CPAP TX LIKELY CONTRIBU TING WELL. TRY ANOTHER COURSE OF ABX AND CONSULT ENT FOR ADDITION AL MGMT OPTIONS. ; RECORDED 08/19/20 12 10:06AM BY BELL STAHL MA, ANNOTATI ON/ADDEN DUM Christ Maldonado MD [address] [facility] [address], [place], [address], [facility] 6 13:41:12 Tubercul osis screenin g Completed 201304/04/2014 RECORDED 10/31/19 14 9:34AM BY BELL STAHL MA, NURSE VISIT Christ Maldonado MD [address] [facility] [address], [place], [address], [facility] 6 13:41:12 Tobacco dependen ce syndrome 78768713 Completed 201104/04/2014 RECORDED 08/16/20 12 3:43PM BY BELL STAHL MA, ANNOTATI ON/ADDEN DUM Christ Maldonado MD [address] [facility] [address], [place], [address], [facility] 6 13:41:12 Dizzines s and giddines s 689149712 Completed 201204/04/2014 IMPRESSI ON: LIKEY RELATED TO SINUS ISSUES, BUT IF PERSISTA NT/WORSE WILL NEED FURTHER EVAL.; RECORDED 06/13/20 13 10:43AM BY BELL STAHL MA, ANNOTATI ON/ADDEN DUM Christ Maldonado MD [address], [place], [address], [facility] 6 13:41:12 Type B viral hepatiti s 58761274 Completed 201204/04/2014 RECORDED 07/26/20 13 2:55PM BY BELL STAHL MA, ANNOTATI ON/ADDEN DUM Christ Maldonado MD [address], [place], [address], [facility] 6 13:41:12 Viral hepatiti s C 66989046 Completed 201204/04/2014 RECORDED 07/26/20 13 2:55PM BY BELL STAHL MA, ANNOTATI ON/ADDEN DUM Christ Maldonado MD [address], [place], [address], [facility] 6 13:41:12 Vitamin D deficien cy 90478323 Active 2013 Christ Maldonado MD [address], [place], [address], [facility] 6 13:41:12 Acute sinusiti s 49342443 Completed 03/08/2015 Christ Maldonado MD [address], [place], [address], [facility] 6 13:41:12 Chronic obstruct malissa pulmonar y disease 21395204 Active 2014 Christ Maldonado MD [address], [place], [address], [facility] 6 13:41:12 Painful rectal bleeding 673364849 Active Christ Maldonado MD [address], [place], [address], [facility] 6 13:41:12 Cramp 83185375 Active Christ Maldonado MD [address], [place], [address], [facility] 6 13:41:12 Calcific tendinit is 89939156 Completed 07/15/2017 shoulder Christ Maldonado MD [address], [place], [address], [facility] 7 14:33:47 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 203992026 Active Christ Maldonado MD [address], [place], [address], [facility] 6 13:41:12 Memory impairme nt 044934354 Active Christ Maldonado MD [address], [place], [address], [facility] 6 13:41:12 Hemorrho ids 41022128 Active Christ Maldonado MD [address], [place], [address], [facility] 6 13:41:12 Uncontro lled type 2 diabetes mellitus 909218820 Active Christ Maldonado MD [address], [place], [address], [facility] 6 14:05:23 History of opioid abuse 96948626114 9100 Active 2016 Christ Maldonado MD [address], [place], [address], [facility] 7 14:32:34 History of viral hepatiti s 275269077 Active 2016 Christ Maldonado MD [address], [place], [address], [facility] 7 14:38:20 Anemia 363573348 Active 2017 Christ Maldonado MD [address], [place], [address], [facility] 8 13:49:00 Abnormal thyroid hormone 134053540 Active 2017 Christ Maldonado MD [address], [place], [address], [facility] 8 14:42:58 Problem Notes None recorded. Procedures Surgical History Date Name Laterality Status Provider Name and Address Organization Details Recorded Time Colonoscopy completed Bell Stahl MA [facility] 03/10/2016 13:00:58 Appendectomy completed Bell Stahl MA [facility] 05/03/2014 10:03:36 Hernia Repair completed Bell garcia MA [facility] 05/03/2014 10:03:36 Imaging Results None recorded. Procedure Notes None recorded. Medical Equipment None Reported. Allergies Allergen ID Allergen Name Allergen Category Reaction Reaction Severity Criticality Documentation Date Start Date Code Code System Note Provider Name and Address Organization Details Recorded Time 4797 codeine medicatio n hives Not available Not available 04/04/20142013 2670 RxNorm Christ Maldonado MD [address], [place], [address], [facility] 6 13:43:22 4798 naltrexon e hydrochlo ride medicatio n vomiting Not available Not available 04/04/20142013 45510 9 RxNorm Christ Maldonado MD [address], [place], [address], [facility] 6 13:43:22 4799 Talwin medicatio n nausea Not available Not available 04/04/20142013 8002 RxNorm Christ Maldonado MD [address] [facility] [address], [facility] [place], [address], [facility] 6 13:43:22 4800 tramadol Not available Not available Not available Not available 04/04/20142012 89662 RxNorm COMME NT: RECOR DED 06/13 11:19 AM BY CHRIST FITCH MD, ANNOT ATION /ADDE NDUM; Not Available [facility] 4 13:22:31 Medications Name Sig Start Date [...] TION active RECORDED 01/15/20 13 10:25AM BY BLAS SIMMONS ANNOTATI ON/SRIRAM DUM; Not Available Not Available Not Available hydrocort isone-pra moxine 2.5 %-1 % (4g) rectal cream Insert 4 g twice a day by rectal route as needed. 2014 active Not Available Not Available Not Avai lable cholecalc iferol (vitamin D3) 1,250 mcg (50,000 unit) capsule ONCE A WEEK 11/21 completed RECORDED 11/22/19 14 1:15PM BY CHRIST Acrher MD, PRESCRIP TION REFILL; Not Available Not [...] lable Vitals Date Recorded Body height Body mass index (BMI) Body weight Heart rate Body temperature Oxygen saturation Oxygen saturation in Arterial blood by Pulse oximetry Systolic And Diastolic Provider Name and Address Organization Details Last Updated DateTime 8 182.88 cm 28.1 kg/m2 32204.6 2 g 90 /min 99.2 [degF] 98 % 98 % 118/72 mm[Hg] Bell Stahl MA [facility] 8 11:25:20 Date Recorded Body height Body mass index (BMI) Body weight Heart rate Oxygen saturation Oxygen saturation in Arterial blood by Pulse oximetry Body temperature Systolic And Diastolic Provider Name and Address Organization Details Last Updated DateTime 8 182.88 cm 28.6 kg/m2 09427.9 9 g 52 /min 97 % 97 % 96.8 [degF] 110/70 mm[Hg] Bell Stahl [facility] 8 13:06:40 Date Recorded Body height Body weight Body mass index (BMI) Body temperature Oxygen saturation Oxygen saturation in Arterial blood by Pulse oximetry Heart rate Systolic And Diastolic Provider Name and Address Organization Details Last Updated DateTime 7 182.88 cm 07071.6 6 g 27.4 kg/m2 99.4 [degF] 95 % 95 % 78 /min 147/87 mm[Hg] Danna Velasco Mitchell [facility] 7 11:31:50 Date Recorded Body height Body weight Body mass index (BMI) Oxygen saturation Oxygen saturation in Arterial blood by Pulse oximetry Heart rate Body temperature Systolic And Diastolic Provider Name and Address Organization Details Last Updated DateTime 7 182.88 cm 56702.8 4 g 27.7 kg/m2 96 % 96 % 67 /min 98.7 [degF] 115/76 mm[Hg] Bell Stahl MA [facility] 7 09:50:32 Date Recorded Body height Body mass index (BMI) Body weight Heart rate Body temperature Oxygen saturation Oxygen saturation in Arterial blood by Pulse oximetry Systolic And Diastolic Provider Name and Address Organization Details Last Updated DateTime 7 182.88 cm 28.3 kg/m2 89139.8 1 g 64 /min 97.1 [degF] 97 % 97 % 109/68 mm[Hg] Bell Stahl MA [facility] 7 14:09:39 Social History Question Answer Notes LastModified by Organizat ion Details LastModified Time Tobacco Smoking Status Never Smoker Not Available [employer] 07/24/2020 03:36:37 Do You Have An Advance Directive? Yes HCP/ Daughter-N icole [id number] Information not available 07/24/2020 Is Blood Transfusion Acceptable In An Emergency? Yes [id number] Information not available 07/24/2020 What Is Your Level Of Caffeine Consumption? Occasional [id number] Information not available 07/24/2020 What Type Of Diet Are You Following? REGULAR [id number] Information not available 07/24/2020 Which Illicit Or Recreational Drugs Have You Used? Marijuanna Heroin In The Past [id number] Information not available 07/24/2020 Education 11 Information no t available 11/07/2014 Hard Of Hearing Or Deaf In One Or Both Ears? No Information not available 11/07/2014 Live Alone Or With Others? Alone Information not available 11/07/2014 Do You Take Precautions To Prevent Distracted Driving? Yes connien Information not available 03/10/2016 How Often Do You Need To Have Someone Help You When You Read Instructions, Pamphlets, Or Other Written Material From Your Doctor Or Pharmacy? Never Information not available 03/10/2016 Have You Served In The ? No Information not available 07/15/2017 What Was The Date Of Your Most Recent Tobacco Screening? 11/27/2017 [id number] Information not available 07/24/2020 How Many Children Do You Have? 3 2 Dtrs, 1 Son [id number] Information not available 07/24/2020 Do You Use Protection During Sex? Always [id number] Information not available 07/24/2020 Seat Belts Used Routinely Yes Information not available 11/07/2014 Are You Sexually Active? Yes [id number] Information not available 07/24/2020 Smoke Alarm In Home Yes Information not available 03/10/2016 Are You Passively Exposed To Smoke? No Information not available 03/10/2016 How Much Tobacco Do You Smoke? No [id number] Information not available 07/24/2020 Do You Use Sunscreen Routinely? Yes [id number] Information not available 07/24/2020 Sex: Unknown Functional Status Question Answer Note LastModified by Organizat ion Details LastModified Time What is your level of alcohol consumption? None [id number] Information not available 07/24/2020 Are you currently employed? No [id number] Information not available 07/24/2020 Are you able to care for yourself? Yes [id number] Information not available 07/24/2020 What is your occupation? disabled [id number] Information not available 07/24/2020 What is your exercise level? Occasional [id number] Information not available 07/24/2020 Mental Status None [...] available 03/10 13:44:31 Brother Congestive heart failure [email or web address] Not available 03/10 13:44:31 Father Congestive heart failure awychowski Not available 03/10 13:44:31 Son Well adult dao Not avail able 07/15/2017 14:30:38 Medical History Condition Response Coronary Artery Disease N Gout N Other N Blood Diseases N Kidney Stones N Hyperthyroidism N Breast Cancer N mrsa exposure N Lung Disease N COPD N Depression N Hypothyroidism N Defects or Inherited Disease N Developmental or Behavioral Disorders N Breast Problem N Anesthesia Complications N Headaches/Migraines N Varicose Veins N Anxiety Disorder Y Muscle, Joint, or Bone Problems N Obesity N Vision or Eye Problems N Arthritis N Head Injury/Concussion N Infertility N Polyps N Mental Disorder N Congenital Anomalies N Acid Reflux (GERD) N Cancer N Stroke N ADHD N Endometriosis N High Cholesterol Y Liver Disease N Headaches N Fibromyalgia N Kidney Disease N Heart Problems N Ear or Hearing Problems N Hospitalizations N Thyroid Problems N GI Problems N Developmental Delay N Acne N Eating Disorder N Skin Problems N Anemia N Constipation N Bladder Problems N Mental Illness N Diabetes Y Ovarian Cancer N Bedwetting N Blood Transfusions N Heart Problems/Murmur N Seizures/Epilepsy N Tuberculosis N AIDS/HIV N Congestive Heart Failure (CHF) N Eczema N Abuse/Domestic Violence N Diverticulitis N Asthma N Allergies N Reflux/GERD N Hepatitis N Heart Disease N Pulmonary Embolism N Hypertension Y Chicken Pox N Autism Spectrum Disorder (ASD) N Osteoporosis N Immunizations Vaccine Type Date Status Note Provider Nam e and Address Organization Details Recorded Time pneumococcal polysaccharide PPV23 5 completed Not Available [facility] 10/08/2019 02:21:42 influenza, seasonal, intradermal, preservative free 4 completed Mendy steinberg [facility] 08/02/2015 09:11:03 influenza, unspecified formulation 4 completed Mendy steinberg [facility] 08/02/2015 09:11:03 influenza, seasonal, intradermal, preservative free 5 completed Mendy steinberg [facility] 08/02/2015 09:11:03 Influenza, split virus, quadrivalent, preservative 6 completed Shanelle steinberg [facility] 08/01/2016 11:11:22 Influenza, split virus, quadrivalent, preservative 7 completed Bell Stahl MA maryan, [facility] 07/15/2017 14:05:38 Tdap 9 completed Mendy Hernandez MA maryan, [facility] 08/02/2015 09:11:03 Hep A, adult 1 completed Mendy Hernandez MA maryan, [facility] 08/02/2015 09:11:03 Hep A, adult 2 completed Mendy Hernandez MA maryan, [facility] 08/02/2015 09:11:03 influenza, seasonal, intradermal, preservative free 2 completed Mendy Hernandez MA maryan, [facility] 08/02/2015 09:11:03 influenza, seasonal, intradermal, preservative free 3 completed Mendy Hernandez MA maryan, [facility] 08/02/2015 09:11:03 Past Encounters Encounter ID Performer Location Encounter Start Date Encounter Closed Date Diagnosis/Indication Diagnosis SNOMED-CT Code Diagnosis ICD10 Code Diagnosis Note [id number] autoEComm erce [address] [facility] [place] [address] 07/01/2012 00:00:00 [id number] autoEComm erce [address] [facility] [place] [address] 07/15/2012 00:00:00 [id number] autoEComm erce [address] [facility] [place] [address] 08/17/2012 00:00:00 [id number] autoEComm erce [address] [facility] [place] [address] 10/22/2012 00:00:00 [id number] autoEComm erce [address] [facility] [place] [address] 03/07/2013 00:00:00 [id number] autoEComm erce [address] [facility] [place] [address] 06/13/2013 00:00:00 [id number] autoEComm erce [address] [facility] [place], [place] [address] 10/12/2013 00:00:00 [id number] autoEComm erce [address] [facility] [place], [place] [address] 02/02/2014 00:00:00 [id number] autoEComm erce [address] [facility] [place], [place] [address] 02/27/2014 00:00:00 [id number] Christ Maldonado MD Main Office [address] [facility] [address] [place] [address] 05/03/2014 10:04:50 05/03/2014 10:56:40 Dizziness 794403679 Improving and suspicious for allergic etiology. Call inb/worse with allergy tx. 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 >25min spent completing form in patients presence as well as discussing above plan. [id number] Christ Maldonado MD Main Office [address] [facility] [address] [place] [address] 11/07/2014 12:41:29 11/07/2014 14:14:41 Adult health examination 422592716 Immunizati on status updated will screen based on risk factors. Regular dental and ophtho care advised as well as seatbelt and sunscreen use. Distracted driving discussed. Advance directives in place. Body mass index 25-29 - overweight 147421838 Essential hypertension 98716925 Obstructiv e sleep apnea syndrome 31129484 Pure hypercholesterolemia 386525024 LDL at goal. Continue current regimen. Vitamin D deficiency 92249898 Benign pro static hyperplasia 614478141 Screening for malignant neoplasm of colon 978824858 Patient is arranging f/u colonoscop y and EGD with Dr Mathis. Administra tion of pneumococcal vaccine 31091490 Depressive disorder 91810426 Followed and managed by Dr Espinal. [id number] SHARLA Kate Main Office [address] [facility] [address] [place] [address] 01/09/2015 10:14:39 01/09/2015 10:57:09 Acute sinusitis 29271710 Type 2 sebas betes mellitus without complication 469372087 reently worsening. endocrine started him on metformin. he feels ok on this [id number] Christ Maldonado MD Main Office [address] [facility] [address] [place] [address] 03/08/2015 11:10:46 03/08/2015 12:05:50 Essential hypertension 13451182 Well controlled on recheck. Will continue current regimen. Constipation 96776810 Ad equate hydration advised. Will try po magnesium supplement to see if helpful with this and muscle cramps. Painful re ctal bleeding 452990699 Likely hemorrhoid al vs fissure related. Will address constipati on and pt is arranging GI f/u for colonoscop y luisa. Cramp 25111530 [id number] Christ Maldonado MD Main Office [address] [facility] [address] [facility] [place] [address] 08/02/2015 09:01:58 08/02/2015 09:54:42 Essential hypertension 92816025 I10 Well controlled . Will continue current regimen. Pure hypercholesterolemia 184969882 E78.0 LDL previously at goal. Continue current regimen and reassess. Obstructiv e sleep apnea syndrome 14578636 G47.33 Needs to establish care with new sleep medicine specialist . Memory impairment 517560 006 R41.3 Due for neuro follow up for this. Will ask Dr Hobbs to help with LE management as well. Type 2 sebas betes mellitus without complication 979044846 E11.9 Well controlled . Followed by Liban. Due for labs. [id number] Christ Maldonado MD Main Office [address] [facility] [address] [place] [place] [address] 12/05/2015 09:12:50 12/05/2015 10:04:45 Essential hypertension 09401664 I10 Well controlled . Will continue current regimen. Type 2 sebas betes mellitus without complication 654618334 E11.9 Well controlled . Followed by Liban. Due for labs. Orders from July reprinted. Pure hypercholesterolemia 500679918 E78.0 LDL previously at goal, but overdue for labs. Continue current regimen and reassess. Obstructiv e sleep apnea syndrome 90548533 G47.33 Needs to establish care with new sleep medicine specialist . Pt will address this issue with Dr. Hobbs. [id number] Christ Maldonado MD Main Office [address] [address] [place] [address] 03/10/2016 12:40:02 03/10/2016 14:10:16 Adult health examination 850882884 Z00.00 Immunizati on status updated will screen based on risk factors. Regular dental and ophtho care advised as well as seatbelt and sunscreen use. Distracted driving discussed. Advance directives in place. Body mass index 25-29 - overweight 680294735 E66.3 Essential hypertension 96705680 I10 Well controlled . Will continue current regimen. Pure hypercholesterolemia 306096204 E78.0 LDL previously at goal, but overdue for labs. Continue current regimen and reassess. Type 2 sebas betes mellitus without complication 655693380 E11.9 [id number] Christ Maldonado MD Main Office [address] [address] [place] [address] 05/29/2016 13:09:13 05/29/2016 14:31:51 Allergic reaction to insect bite 218374884 T78.40XA Supportive /symptomat ic tx advised while pursuing exterminat or evaluation . Call with and signs/symp toms of infection. [id number] Juanjo Dinh PA-C Main Office [address] [address] [place] [address] 06/25/2016 09:13:16 06/25/2016 10:13:13 Allergic reaction to insect bite 763854318 W57.XXXD urged pt to call derm 25 minute office visit with greater than 50% of the visit face-to-fa ce with the patient and/or family providing counseling and/or coordinati on of care. Allergic rhinitis 119674 04 J30.9 [id number] Christ Maldonado MD Main Office [address] [address] [place] [address] 07/11/2016 08:20:41 07/11/2016 09:52:08 Essential hypertension 01679701 I10 Not at goal. Will titrate ACEI to goal BP <140/90. Pure hypercholesterolemia 934142825 E78.01 LDL at goal. Continue current regimen. Obstructiv e sleep apnea syndrome 17619271 G47.[address] Hobbs. [id number] Christ Maldonado MD Main Office [address] [address] [place] [address] 09/04/2016 08:14:29 09/04/2016 09:17:10 Uncontrolled type 2 diabetes mellitus 013824664 E11.65 Has improved on metformin. Will reassess at the end of this month. Essential hypertension 83323906 I10 Well controlled , continue cuirrent regimen. Pure hypercholesterolemia 397966856 E78.01 LDL at goal. Continue current regimen. [id number] Margie Dinh PA-C Main Office [address] [address] [place] [address] 12/12/2016 10:59:52 12/12/2016 12:01:04 Eruption 289347818 R21 Psychogeni c skin disease 111206840 F54 obvious pt. perseveres about possible insects in his apartment. Requested permethrin , but has no evidence of scabies. Pt. will see dermatolog ist for itchy skin as discussed. [id number] Christ Maldonado MD Main Office [address] [address] [place] [address] 01/09/2017 09:15:16 01/09/2017 10:31:05 Uncontrolled type 2 diabetes mellitus 590324964 E11.65 Admits to dietary lapses. Has been on and tolerated a sulfonylur ea in the past will resume. Essential hypertension 34821316 I10 Well controlled , continue current regimen. Chronic dermatitis 73149 007 L30.9 ? psychosoma tic component. Unclear as to whether these lesions are from his environmen t or self inflicted. Will provide another course of permethrin as this has helped in the past. Generalize d anxiety disorder 84883368 F41.1 Has been getting weaned off of benzo. Foot callus 832943557 L8 4 Following with podiatry. [id number] Christ Maldonado MD Main Office [address] [address] [place] [address] 07/15/2017 13:16:51 07/15/2017 15:51:21 Adult health examination 528562122 Z00.00 Immunizati on status utd, will screen based on risk factors. Regular dental and ophtho care advised as well as seat belt and sunscreen use. Distracted driving discussed. Advance directives in place. Uncontroll ed type 2 diabetes mellitus 870254792 E11.[address] Lara on this issues. Defer mgmt decisions to her. Body mass index 25-29 - overweight 286302414 E66.3 Z68.28 Testicular hypofunction 996972187 E29.1 Managed and monitored by endocrinol addison. Pure hypercholesterolemia 104176621 E78.01 LDL at goal. Continue current regimen. History of viral hepatitis 033915213 Z86.19 Will confirm remission and adequate immunizati on status. [id number] Christ Maldonado MD Main Office [address] [facility] [address] [facility] [place] [address] 10/12/2017 09:56:46 10/12/2017 12:14:22 Upper respiratory infection 75706694 J06.9 Supportive measures. Nasal saline, fluids, rest, mucinex DM. Pt advise to return if sx worsen ( productive cough with green colored sputum, worsening sinus tenderness ) [id number] Christ Maldondao MD Main Office [address] [facility] [address] [facility] [place] [id number] 11/27/2017 12:35:36 11/27/2017 13:47:52 Pure hypercholesterolemia [id number] E78.01 LDL previosuly at goal. Continue current regimen, and reassess. Essential hypertension [id number] I10 Well controlled , continue current regimen. Type 2 sebas betes mellitus without complication [id number] E11.9 Followed by endo. Will check labs and forward results to Dr. Lara. Anemia [id number] D64.9 Health Concerns Section Related Observation LastModified by Organization Detai ls LastModified Time None Recorded Concern Status LastModified by Organization Details LastModified Time None Recorded Advance Directives Directive Y: HCP/ Daughter-Ashlee Payers Insurance Date Sequence Insurance Name Policy Number Policy Sy Covered Member ID Sy Member ID Guarantor Name 12/04/2021 1 [place]: [facility] Karthik Crenshaw [id number] Karthik Crenshaw Notes Date Note Type Note [...] given promethium to use. Christ Maldonado MD [address] [facility] [address], [place], [address], [facility] [place] 12/14/2016 21:50:34 7 text/html Diabetes F/UReported bypatient.Context:normal [...] given permethrin to use. Christ Maldonado MD [address] [facility] [address], [place], [address], [facility] [place] 01/09/2017 10:36:28 7 text/html Generic HPI TemplateReported bypatient.Notes:Feeling fairly well. Here for a physical. Seeing ophtho regularly. Has dentures. Christ Maldonado MD [address] [address], [place], [address], [facility] [place] 08/03/2017 08:22:02 8 text/html This is a [...] reports sick contacts. Christ Maldonado MD [address] [address], [place], [address], [facility] 10/14/2017 06:27:17 8 text/html Diabetes F/UReported bypatient.Context:normal [...] side effects from medication Christ Maldonado MD [address], [address], [facility] 11/27/2017 13:50:01
[2025-04-03 13:48] VITALS: BP 144/67; PULSE 48
== END 2025-04-03 13:51 | disposition home or self-care (01) ==
PROVIDERS: PCP Internal Medicine; Visit Provider Nurse Practitioner Family
DX: E11.40 Type 2 diabetes mellitus with diabetic neuropathy, unspecified (principal); M51.369 Other intervertebral disc degeneration, lumbar region without mention of lumbar back pain or lower extremity pain; M54.50 Low back pain, unspecified; G89.29 Other chronic pain; M47.817 Spondylosis without myelopathy or radiculopathy, lumbosacral region; M54.16 Radiculopathy, lumbar region; M53.3 Sacrococcygeal disorders, not elsewhere classified
CPT/HCPCS: 17999; 99214

== ENCOUNTER → 2025-04-03 12:49 | Outpatient (BNVA) | payer OTHER, SELFPAY | PROVIDERS: PCP Internal Medicine; Visit Provider Nurse Practitioner Family | DX: E11.40 Type 2 diabetes mellitus with diabetic neuropathy, unspecified (principal); E29.1 Testicular hypofunction; J44.9 Chronic obstructive pulmonary disease, unspecified; I50.9 Heart failure, unspecified; I12.9 Hypertensive chronic kidney disease with stage 1 through stage 4 chronic kidney disease, or unspecified chronic kidney disease; N18.2 Chronic kidney disease, stage 2 (mild); E11.22 Type 2 diabetes mellitus with diabetic chronic kidney disease; K21.9 Gastro-esophageal reflux disease without esophagitis; M51.369 Other intervertebral disc degeneration, lumbar region without mention of lumbar back pain or lower extremity pain; G89.29 Other chronic pain; M54.50 Low back pain, unspecified; M47.817 Spondylosis without myelopathy or radiculopathy, lumbosacral region | CPT/HCPCS: 17999; 99212; J7336 ==